=== PATIENT | male | born 1945 | race Caucasian/White ===

== ENCOUNTER 2023-12-22 12:37 | Inpatient (IN) | payer MEDICARE, MEDICAID, SELFPAY ==
[2023-12-22] VITALS (41 sets, daily range): BP systolic 70–131; BP diastolic 45–67; PULSE 65–109; RESP 12–34; TEMP 34.7–36.8; O2SAT 93–100; BMI 18.8
--- NOTE | ~2023-12-22 | CT_ITS ---
EXAMINATION: CT diagnostic chest w con DATE: 12/29/2023 15:35 INDICATION: Colon cancer TECHNIQUE: Computed tomography (CT) of the chest was performed with 100 mL Omnipaque-350 intravenous contrast. Automated exposure control and iterative reconstruction technique were employed. The dose-l ength product was 143.28 mGy-cm. COMPARISON: X-ray chest 12/23/2023; CT abdomen pelvis 12/22/2023. FINDINGS: CHEST: Thoracic aorta: No significant dilation or calcification. Lung parenchyma and airways: Biapical pleural scarring. Patchy areas of groundglass opacity in the me dial left upper lobe, right upper lobe and right middle lobe. Calcified left lower lobe granuloma. Bi basilar dependent atelectasis. Thoracic inlet, axillae and chest wall: No thyroid or soft tissue mass. No axillary lymphadenopathy. Right IJ central line terminating in the distal SVC. Mediastinum: Prominent mediastinal lymph nodes, not pathologic based on size criteria. Central pulmon dar arterial dilation as can be seen with pulmonary artery hypertension. Well-opacified pulmonary art eries, no evidence of central or segmental embolus. Small hiatal hernia. Heart and pericardium: Normal heart size. No pericardial effusion. Coronary artery calcifications: Mild. Pleura: Moderate bilateral simple pleural fluid collections. Upper abdomen: Partially visualized transverse colon mass. Hyperenhancing left upper quadrant nodule, likely splenule. Thoracic bones: No acute osseous finding in the chest. Multilevel chronic appearing mild thoracic richard tebral body compression fractures. Bone island in T10. IMPRESSION: Scattered groundglass pulmonary opacities may represent atypical infection. Moderate bilateral simple pleural effusions. No CT evidence of metastatic disease in the chest. Reviewed, dictated and finalized at location K.
--- NOTE | ~2023-12-22 | CT_ITS ---
EXAMINATION: CT abdomen pelvis w con DATE: 12/22/2023 14:08 INDICATION: Lethargy. Weakness. TECHNIQUE: Computed tomography (CT) of the abdomen and pelvis was performed with 100 mL Omnipaque 350 intravenous contrast. Automated exposure control and iterative reconstruction technique were employe d. The dose-length product was 299.88 mGy-cm. COMPARISON: None. FINDINGS: The visualized portions of the lung bases demonstrate a calcified left lung nodule, consist ent with old granulomatous disease. No pleural effusion. The heart size is normal. No pericardial eff usion. There is a small sliding hiatal hernia. There are cysts in the liver measuring up to 7 mm . Th e spleen, gallbladder, pancreas, adrenal glands, and left kidney are normal. There is a 7 mm cyst in right kidney. There is a 17.0 cm mass of the transverse colon. There are no dilated loops of bowel. T he appendix is not visualized. There is calcified atherosclerosis of the aorta and many of the other arteries. There are no pathologically enlarged lymph nodes. There is no free intraperitoneal fluid. T here is internal fixation of proximal right femur. There is moderate there is mild thoracic and lumba r spondylosis. Osteoarthritis of the hips. IMPRESSION: 1. 17.0 cm mass of the transverse colon, consistent with primary malignancy. Reviewed, dictated and finalized at location A.
--- NOTE | ~2023-12-22 | XR_ITS ---
EXAMINATION: XR hip LT 2V w AP pelvis DATE: 12/22/2023 13:55 INDICATION: Left hip pain. Weakness. Fall. TECHNIQUE: An anteroposterior view of the pelvis and 2 views of left hip were obtained. COMPARISON: None. FINDINGS: Bone alignment is normal. No acute fracture. There is internal fixation of proximal right f emur. There is mild osteoarthritis of the hips. IMPRESSION: 1. Mild osteoarthritis of the hips. Reviewed, dictated and finalized at location A.
--- NOTE | ~2023-12-22 | XR_ITS ---
EXAMINATION: XR chest 2V DATE: 12/22/2023 13:55 INDICATION: Fall. Weakness. TECHNIQUE: Frontal and lateral views of the chest were obtained on 3 radiographs. COMPARISON: None. FINDINGS: There is mild scarring at the left lung apex. No pleural effusion or pneumothorax. The hear t size is normal. There is mild chronic anterior wedging of multiple vertebral bodies. IMPRESSION: 1. Mild scarring at left lung apex. Reviewed, dictated and finalized at location A.
--- NOTE | ~2023-12-22 | XR_ITS ---
EXAMINATION: XR chest port-a-cath/central Exam Date/Time: 12/22/2023 22:05 CDT HISTORY: central line placement Comparison: Same date at 1:36 PM are. RESULT: Lines, tubes, and devices: Right IJ central line, terminating in the proximal right atrium. Lungs and pleura: Mild diffuse interstitial opacities. Cardiomediastinal silhouette: Stable. Other: No acute osseous or upper abdominal finding. IMPRESSION: Right IJ central line terminating in the proximal right atrium. If cavoatrial positioning is desired, consider 1.5 cm retraction. Mild interstitial edema Reviewed, dictated and finalized at location K. IMPRESSION: Right IJ central line terminating in the proximal right atrium. If cavoatrial p ositioning is desired, consider 1.5 cm retraction. Mild interstitial edema
--- NOTE | ~2023-12-22 | XR_ITS ---
EXAMINATION: XR chest 1V portable DATE: 01/11/2024 15:04 INDICATION: Hypoxia. Sepsis. TECHNIQUE: A single frontal view of the chest was obtained. COMPARISON: Chest single view 01/08/24, chest CT 12/29/2023 FINDINGS: There is a diffuse interstitial pattern, consistent with mild pulmonary edema. No pleural e ffusion or pneumothorax. The heart size is normal. IMPRESSION: 1. Mild pulmonary edema. Reviewed, dictated and finalized at location E. IMPRESSION: 1. Mild pulmonary edema.
--- NOTE | ~2023-12-22 | XR_ITS ---
EXAMINATION: XR chest 1V portable Exam Date/Time: 01/13/2024 19:50 CDT HISTORY: aspiration Comparison: 01/11/2024. RESULT: Lines, tubes, and devices: None. Lungs and pleura: Increasing patchy ground glass opacities in the left mid and lower lung. Stable pa tchy ground glass opacities in the bilateral upper and right lower lungs. Stable mild diffuse interst itial opacities. Cardiomediastinal silhouette: Stable. Other: No acute osseous or upper abdominal finding. IMPRESSION: Slightly increased left mid and lower lung opacities may represent slightly increased edema or interv al aspiration. Reviewed, dictated and finalized at location K. IMPRESSION: Slightly increased left mid and lower lung opacities may represent slightly inc reased edema or interval aspiration.
--- NOTE | ~2023-12-22 | CT_ITS ---
EXAMINATION: CT brain wo con DATE: 12/22/2023 14:06 INDICATION: Weakness. Lethargy. TECHNIQUE: Computed tomography (CT) of the head was performed without intravenous contrast. The mA wa s adjusted according to patient size. Iterative reconstruction technique was employed. The dose-lengt h product was 681.00 mGy-cm. COMPARISON: None FINDINGS: There is no intracranial hemorrhage, acute infarction, or abnormal intracranial mass lesion . The ventricles are normal in size. The orbits are normal. There is mild mucosal thickening in the e thmoid sinuses. The mastoid air cells are normal. IMPRESSION: 1. Normal brain. Reviewed, dictated and finalized at location A. IMPRESSION: 1. Normal brain.
--- NOTE | ~2023-12-22 | XR_ITS ---
MODIFIED ESOPHAGRAM HISTORY: Choking on thin liquids TECHNIQUE: Modified barium esophagram was performed on 01/13/2024. I administered fluoroscopy and perf ormed the exam with speech pathologist. Patient was seated for lateral fluoroscopic imaging for lesli stion of thin liquids, pudding, solids and quantified amounts, followed by thin liquids in uncontroll ed amounts. This was recorded on tape. A single fluoroscopic spot image was also recorded. The DAP fo r this procedure was 2.484 Gycm2. The amount of fluoroscopy time used during this procedure was 5.3 m inutes. FINDINGS: Oral stage: Patient is edentulous. There is reduced labial seal/attention. Pharyngeal stage: Reduced laryngeal elevation, laryngeal adduction, tongue base retraction and pharyn geal squeeze. There is vallecular residue. There is both laryngeal penetration and aspiration. Cervical/esophageal stage: Adequate function. IMPRESSION: Pharyngeal dysphagia with laryngeal penetration and aspiration. Please correlate with sp eech pathologist findings and specific feeding recommendations. Reviewed, dictated and finalized at location A. IMPRESSION: Pharyngeal dysphagia with laryngeal penetration and aspiration. Pl ease correlate with speech pathologist findings and specific feeding recommenda tions.
--- NOTE | ~2023-12-22 | XR_ITS ---
Portable chest x-ray Comparison: 01/03/2024 Clinical History: Fever Findings: Lungs are clear, without focal consolidation or pleural effusion. Possible COPD. Cardiome diastinal silhouette is stable. Bones and soft tissues are unremarkable. Impression: No acute pulmonary abnormality seen. Possible COPD. Reviewed, dictated and finalized at location . Impression: No acute pulmonary abnormality seen. Possible COPD.
--- NOTE | ~2023-12-22 | CT_ITS ---
Non-contrast Head CT History: Status post fall COMPARISON: 12/22/2023 Technique: Axial non-contrast imaging of the brain was performed. Dose reduction technique was used on this scan by utilizing automated exposure control and iterative reconstruction technique. The dose -length product (DLP) was 681.00 mGy-cm. Findings: There is no evidence of intracranial hemorrhage, mass lesion, or acute infarct. Brain par enchyma appears normal. The ventricles and subarachnoid spaces are normal in size. The calvarium ap pears normal. The visualized paranasal sinuses and mastoid air cells are clear. Impression: No significant abnormality seen. Reviewed, dictated and finalized at location . Impression: No significant abnormality seen.
--- NOTE | ~2023-12-22 | XR_ITS ---
EXAMINATION: XR chest 1V portable DATE: 01/03/2024 16:01 INDICATION: Leukocytosis. TECHNIQUE: A single frontal view of the chest was obtained. COMPARISON: Chest single view 12/23/2023, chest CT 12/29/2023 FINDINGS: There is mild scarring at the lung apices. No pleural effusion or pneumothorax. Skinfolds o verlie the chest. The heart size is normal. Calcified left hilar lymph nodes are consistent with old granulomatous disease. IMPRESSION: 1. Stable mild scarring at the lung apices. Reviewed, dictated and finalized at location E.
--- NOTE | ~2023-12-22 | XR_ITS ---
Portable chest x-ray Comparison: 12/22/2023 Clinical History: Line placement Findings: Right IJ line in satisfactory position. Lungs remain clear. Cardiomediastinal silhouette is stable. Bones and soft tissues are unremarkable. Impression: Support line in place, as above. Clear lungs. Reviewed, dictated and finalized at location . Impression: Support line in place, as above. Clear lungs.
--- NOTE | 2023-12-22 12:44 | ECG_ITS ---
Measurements Intervals Alpha Rate: 103 P: 82 NC: 131 QRS: 60 QRSD: 89 T: 81 QT: 357 QTc: 468 Interpretive Statements SINUS TACHYCARDIA ABNORMAL RHYTHM ECG NO PREVIOUS ECG AVAILABLE FOR COMPARISON Electronically Signed On 12-22-2023 13:20:23 CDT by He Marvin M.D.
[2023-12-22 13:10] LABS: Basophils Absolute Auto 0.1 K/mm3 (0.0-0.1); Basophils Percent Auto 0.4 % (0.2-1.2); Eosinophils Percent Auto 0.1 % (0-4.4); Hematocrit 28.4 % (42.0-52.0); Hemoglobin 8.7 g/dL (14.0-18.0); Immature Granulocyte Absolute 0.21 K/mm3 (0.00-0.031); Immature Granulocyte Percent A 1.6 % (0-0.5); Lymphocytes Absolute Auto 0.46 K/mm3 (0.9-3.2); Lymphocytes Percent Auto 3.5 % (18.3-44.2); Mean Corpuscular HGB Conc 30.6 g/dl (32-36); Mean Corpuscular Hemoglobin 25.4 pg (26-34); Mean Corpuscular Volume 82.8 fl (80-100); Mean Platelet Volume 8.9 fl (7.4-10.4); Monocytes Absolute Auto 1.1 K/mm3 (0.1-0.6); Monocytes Percent Auto 8.5 % (2.6-8.5); Neutrophils Absolute Auto 11.3 K/mm3 (1.3-6.7); Neutrophils Percent Auto 85.9 % (45.5-73.1); Platelet Count Result 261 k/mm3 (150-375); Red Blood Count 3.43 M/mm3 (4.6-6.20); Red Cell Distribution Width 16.8 % (11.5-14.5); White Blood Count 13.1 K/mm3 (4.5-10.0)
[2023-12-22 13:21] LABS: Alanine Aminotransferase 14 U/L (6-50); Albumin Level 2.5 g/dL (3.5-5.1); Alkaline Phosphatase 111 U/L (38-126); Anion Gap 8 mmol/L (4-12); Aspartate Amino Transferase 24 U/L (17-59); Bilirubin,Total 0.9 mg/dL (0.2-1.3); Blood Urea Nitrogen 15 mg/dL (9-20); Calcium 8.6 mg/dL (8.4-10.2); Carbon Dioxide 27 mmol/L (22-30); Chloride 96 mmol/L (98-107); Estimated Glomerular Filt Rate > 60; Glucose 178 mg/dL (65-110); Potassium 3.6 mmol/L (3.4-5.0); Sodium 131 mmol/L (137-145)
--- NOTE | 2023-12-22 13:22 | ED.FALL ---
HPI - Fall General Chief Complaint: Fall Stated Complaint: FALL Time Seen by Provider: 12/22/23 13:20 Source: patient Limitations: other (speech difficult to understand) History of Present Illness HPI Narrative: Patient presents as ground level fall from [facility]. He was lethargic and weak. Per EMS he had a heart rate in the 130s and a systolic blood pressure of 70 with a blood glucose of 187 mg/dL. patient denies losing consciousness and tries to explain the details of the fall although he is edentulous making it somewhat difficult to fully understand his description of the injury. He states he landed on his right side/ hip but is complaining of left hip pain as well as pain in his lower left quadrant abdomen. He denies any vomiting, nausea, fevers, or bloody bowel movements. medications per nursing documentation as follows: Quetiapine, citalopram, doxazosin, pantoprazole, gabapentin, rosuvastatin, trazodone, hydroxyzine, PCP per facility documentation: Dr Helio Cheng Related Data Home Medications Medication Instructions Recorded Confirmed citalopram 10 mg tablet 10 mg PO DAILY 12/22/23 12/22/23 doxazosin 4 mg tablet 4 mg PO DAILY 12/22/23 12/22/23 gabapentin 300 mg tablet,extended 300 mg PO QPM 12/22/23 12/22/23 release 24 hr hydroxyzine HCl 50 mg tablet 50 mg PO QID PRN Itching 12/22/23 12/22/23 pantoprazole 40 mg tablet,delayed 40 mg PO QAM 12/22/23 12/22/23 release quetiapine 25 mg tablet 25 mg PO QAM 12/22/23 12/22/23 quetiapine 400 mg tablet,extended 400 mg PO HS 12/22/23 12/22/23 release 24 hr rosuvastatin 20 mg tablet 20 mg PO DAILY 12/22/23 12/22/23 trazodone 100 mg tablet 100 mg PO HS PRN Insomnia 12/22/23 12/22/23 Allergies Allergy/AdvReac Type Severity Reaction Status Date / Time Penicillins Allergy Rash Verified 12/22/23 13:32 [facility] Past Medical History Medical History (Updated 12/23/23 @ 02:12 by Virgie Flores MD) Alcohol abuse Arthritis COPD (chronic obstructive pulmonary disease) Major depressive disorder Tobacco abuse Surgical History Surgical History (Updated 12/23/23 @ 00:47 by Zainab Greenberg DO) No history of previous surgery Family History Family History (Updated 12/23/23 @ 00:47 by Zainab Greenberg DO) Mother Cancer Social History Social History (Updated 12/23/23 @ 00:50 by Zainab Greenberg DO) Social History: Patient lives in his own home and is never been . He does not have any pets. He reports that he has not had any contact with his extended family members. He went drinks to excess but will not give me a specific amount that he drinks. He does new enjoys south flavored vodka. He has smoked a pack of cigarettes per day since he was 30 years old. The patient is evasive when discussing illicit substances but urine drug screen was negative in the ER. Code status: DNR/DNI per patient request He does not have a surrogate decision maker in does not have a family member that he is in contact that he would wish to a point as a decision maker. He states to ask the people at [facility] or the staff at the hospital what they would want done. Smoking packs per day: 1 Smoking cigarettes per day: 20.0 Years smoked: 60 Smoking pack-years: 60.00 Smoking status: Heavy tobacco smoker Tobacco type: cigarettes Alcohol intake: current Substance use: never Substance use type: does not use Do You Feel Safe in your Home?: Yes Lack of Transportation: No Lack of Food: Never True Current Housing: I Do Not Have Housing Concerned About Future Housing: No Difficulty Paying Gas/Electric Bills: No Difficulty Paying for Meds: No Currently Unemployed: No Education: Grade School Difficulty w/ Childcare or Family Care: No Additional living arrangements comments: Resides at [place] since 11/21/2011 Spiritual care concerns: No Exam Narrative: GENERAL: Ill-appearing, in no acute distress HEAD: [place]
[2023-12-22 13:23] LABS: Lactic Acid Reflex 5.3 mmol/L (0.7-2.0)
[2023-12-22] MEDS: SODIUM CHLORIDE 0.9% IV 1,000 ML 999 ML IV CONT ×3 (14:13→16:17)
[2023-12-22] MEDS: ACETAMINOPHEN 500 MG TABLET 1000 MG PO (14:13)
[2023-12-22 14:55] LABS: Add Urine Microscopic? YES; Appearance Urine Clear (Clear); Bacteria Urine None Seen /hpf; Bilirubin Urine Negative (Negative); Blood Urine Negative (Negative); Color Urine Dark Yellow (Yellow); Glucose Urine UA Negative (Negative); Ketones Urine Negative (Negative); Leukocyte Esterase Ur Trace LEU/UL (Negative); Nitrate Urine Negative (Negative); Non Pathogenic Casts 0-2; Protein Urine 1+ mg/dL (Negative); RBC Urine 0-2 /hpf (0-2); Specific Grav Ur 1.011 (1.001-1.035); Squamous Epithelial Cell Urine None Seen /hpf (Few); WBC Urine 0-5 /hpf (0-3); pH Urine 5.5 (5.0-9.0)
[2023-12-22 15:10] LABS: Amphetamine Screen Urine Negative (Negative); Barbiturate Screen Urine Negative (Negative); Benzodiazepines Screen Urine Negative (Negative); Cannabinoid Screen Urine Negative (Negative); Cocaine Screen Urine Negative (Negative); Methadone Screen Urine Negative (Negative); Opiate Screen Urine Negative (Negative); Phencyclidine Screen Urine Negative (Negative)
[2023-12-22 16:06] LABS: Reflex Lactic Acid Yes or No Add Lactic
[2023-12-22 16:12] LABS: Lactic Acid Reflex 1.4 mmol/L (0.7-2.0)
[2023-12-22] MEDS: LACTATED RINGERS 1,000 ML 100 ML IV CONT (19:19)
--- NOTE | 2023-12-22 19:33 | PC.NURSE ---
Patient's temperature rectally was 94.4 F. Juan hugger and blankets applied to patient and fluids warmed via ranger.
--- NOTE | 2023-12-22 20:25 | PC.NURSE ---
Addendum entered by Jason Hayes RN 12/22/23 21:01: Per [facility] patient has no family that can make legal/medical decisions. Original Note: Patient presents A&Ox2-3. Making statements such as it's August 2023 and when asked why he is here he replies I am marissa or I'm tired . Notified ED CRN and EDP Dr. Flores. Patient has no contacts on our files or files/paperwork patient came in with. Called [employer] for information regarding family and next of kin. [employer] advised they will reach out to their supervisors and they will call us back.
[2023-12-22] MEDS: CEFEPIME 1 GM/NS 50 ML 1 GM/50 ML BAG IVPB (20:42)
[2023-12-22] MEDS: NOREPINEPHRINE 8 MG/D5W 250 ML 8 MG/250 ML BAG 9.38 MG IV CONT (20:56)
[2023-12-22 21:42] LABS: MRSA (PCR) NOT DETECTED (NOT DETECTE)
--- NOTE | 2023-12-22 22:11 | PC.NURSE ---
EDP Dr. Flores reviewed bedside X-ray and verbalized that it was okay to use the central line
[2023-12-22] MEDS: VANCOMYCIN 1,250 MG/NS 250 ML 1,250 MG/250 ML BAG 166.67 MG IVPB (22:14)
--- NOTE | 2023-12-22 23:00 | ADMGEN ---
This patient, Mario Gomez, was admitted to Intensive Care Unit-5. Patient/family oriented to hospital policies and general routines including ID bracelet, bed and alarms, visiting hours, pain management, procedures, bathroom and other care routines, personal items, smoking policy, room service/diet, and visiting hours. Information on how to activate the Rapid Response Team has been discussed. Patient/Family are encouraged to report perceived risks to care and to ask questions if they do not understand what they are told or what they should do.
--- NOTE | 2023-12-22 23:40 | PM.IMHP ---
H&P: HPI History of Present Illness Date/Time: 12/22/23 23:40 Chief Complaint: Fall Narrative: 78-year-old male with a past medical history of BPH, GERD, COPD, tobacco abuse, alcohol abuse, who was brought in from home via EMS after being found on the ground. [facility] Past Medical History Medical History (Updated 12/23/23 @ 01:00 by Zainab Greenberg DO) Alcohol abuse Arthritis COPD (chronic obstructive pulmonary disease) Major depressive disorder Tobacco abuse Surgical History Surgical History (Updated 12/23/23 @ 00:47 by Zainab Greenberg DO) No history of previous surgery Family History Family History (Updated 12/23/23 @ 00:47 by Zainab Greenberg DO) Mother Cancer Social History Social History (Updated 12/23/23 @ 00:50 by Zainab Greenberg DO) Social History: Patient lives in his own home and is never been . He does not have any pets. He reports that he has not had any contact with his extended family members. He went drinks to excess but will not give me a specific amount that he drinks. He does new enjoys south flavored vodka. He has smoked a pack of cigarettes per day since he was 30 years old. The patient is evasive when discussing illicit substances but urine drug screen was negative in the ER. Code status: DNR/DNI per patient request He does not have a surrogate decision maker in does not have a family member that he is in contact that he would wish to a point as a decision maker. He states to ask the people at [facility] or the staff at the hospital what they would want done. Smoking packs per day: 1 Smoking cigarettes per day: 20.0 Years smoked: 60 Smoking pack-years: 60.00 Smoking status: Heavy tobacco smoker Tobacco type: cigarettes Alcohol intake: current Substance use: never Substance use type: does not use Do You Feel Safe in your Home?: Yes Lack of Transportation: No Lack of Food: Never True Current Housing: I Do Not Have Housing Concerned About Future Housing: No Difficulty Paying Gas/Electric Bills: No Difficulty Paying for Meds: No Currently Unemployed: No Education: Grade School Difficulty w/ Childcare or Family Care: No Additional living arrangements comments: Resides at [place] since 11/21/2011 Spiritual care concerns: No Meds Home Medications and Allergies Home Medications Medication Instructions Recorded Confirmed Type citalopram 10 mg tablet 10 mg PO DAILY 12/22/23 12/22/23 History doxazosin 4 mg tablet 4 mg PO DAILY 12/22/23 12/22/23 History gabapentin 300 mg tablet,extended 300 mg PO QPM 12/22/23 12/22/23 History release 24 hr hydroxyzine HCl 50 mg tablet 50 mg PO QID PRN Itching 12/22/23 12/22/23 History pantoprazole 40 mg tablet,delayed 40 mg PO QAM 12/22/23 12/22/23 History release quetiapine 25 mg tablet 25 mg PO QAM 12/22/23 12/22/23 History quetiapine 400 mg tablet,extended 400 mg PO HS 12/22/23 12/22/23 History release 24 hr rosuvastatin 20 mg tablet 20 mg PO DAILY 12/22/23 12/22/23 History trazodone 100 mg tablet 100 mg PO HS PRN Insomnia 12/22/23 12/22/23 History Allergies Allergy/AdvReac Type Severity Reaction Status Date / Time Penicillins Allergy Rash Verified 12/22/23 13:32 Vital Signs Vital Signs - 24 hr 12/22/23 12:38 12/22/23 12:55 12/22/23 15:19 Temperature 98.3 F Pulse Rate 109 H 102 H 76 Respiratory Rate 34 H 18 14 Blood Pressure 70/50 L 108/67 75/49 L Pulse Oximetry 100 97 98 12/22/23 12:46 12/22/23 12:55 12/22/23 13:09 Temperature Pulse Rate 99 102 H 100 Respiratory Rate 27 H 12 19 Blood Pressure 108/67 Pulse Oximetry 97 12/22/23 13:15 12/22/23 13:16 12/22/23 13:30 Temperature Pulse Rate 99 102 H 95 Respiratory Rate 17 25 H 23 H Blood Pressure 72/45 L 83/54 L Pulse Oximetry 12/22/23 13:31 12/22/23 15:48 12/22/23 16:00 Temperature Pulse Rate 96 76 76 Respiratory Rate 26 H 17 16 Blood Pressure 75/52 L Pulse Oximetry
[2023-12-23] VITALS (28 sets, daily range): BP systolic 85–137; BP diastolic 45–73; PULSE 56–108; RESP 14–26; TEMP 36.3–37.4; O2SAT 94–99; BMI 18.9
--- NOTE | 2023-12-23 | ECHO_ITS ---
Patient Info Name: Mario Gomez Age: 78 years : 1945 Gender: Male Ht: 69 in Wt: 128 lbs BSA: 1.67 m2 HR: 73 bpm BP: 124 / 62 mmHg Heart Rhythm: Sinus Rhythm Technical Quality: Fair Exam Date: 12/23/2023 11:49 AM Exam Location: Echo Lab Patient Status: Inpatient Admit Date: 12/22/2023 Staff Ordering Physician: Lopez Ramos MD [employer] Executive: Ruth Vela RDCS Attending Provider: Zainab Greenberg DO Exam Type: CA echo dop color flow w con Study Info Indications - Shock Complete two-dimensional, color flow and Doppler transthoracic echocardiogram is performed with contrast to opacify the left ventricle and to improve the deliniation of the left ventricle endocardial borders. Contrast/Agitated Saline Contrast/Ag. Saline: Definity Amount: 2.00 ml Administered By: Ruth Vela RDCS Existing IV Access: Yes IV Access Condition: patent with no signs of infiltration Summary 1. Left ventricular chamber dimension is normal. 2. Left ventricular systolic function is normal, estimated at 65-70%. 3. Right ventricular systolic function is normal. 4. No significant valvular disease. 5. Normal inferior vena cava with >50% collapse upon inspiration consistent with normal right atrial pressure, 3 mmHg. Left Ventricle Left ventricular chamber dimension is normal. Left ventricular systolic function is normal, estimated at 65-70%. There is no increased left ventricular wall thickness. Right Ventricle Right ventricular chamber dimension is normal. Right ventricular systolic function is normal. Left Atria Left atrial chamber dimension is normal. Right Atria Right atrial chamber dimension is normal. Atrial Septum Intact interatrial septum visualized by color flow imaging. Aortic Valve The aortic valve is probable trileaflet. There is no aortic valve stenosis. There is no aortic valve regurgitation. Pulmonic Valve The pulmonic valve is not well visualized. There is trace pulmonic regurgitation. Mitral Valve There is trace mitral valve regurgitation. Tricuspid Valve There is trace tricuspid valve regurgitation. Pericardium/Pleural There is no pericardial effusion. Inferior Vena Cava Normal inferior vena cava with >50% collapse upon inspiration consistent with normal right atrial pressure, 3 mmHg. Aorta The aortic root size at the sinus of Valsalva is normal. Left Ventricular Outflow Tract Name Value Normal LVOT 2D LVOT Diameter 2.03 cm LVOT Doppler LVOT Peak Gradient 3 mmHg LVOT Mean Gradient 1 mmHg LVOT VTI 15.07 cm LVOT VTI/AV VTI Ratio 0.71 LVOT Stroke Volume 48.70 ml LVOT CO 3.66 l/min LVOT CI 2.19 L/min/m2 Pulmonic Valve Name Value Normal RVOT Doppler RVOT Peak Gradient
--- NOTE | 2023-12-23 03:28 | PC.NURSE ---
Pt maintaining temperature with victor hugo hugger off. Provider notified. Victor Hugo hugger removed from room.
[2023-12-23 05:04] LABS: Basophils Absolute Auto 0.1 K/mm3 (0.0-0.1); Basophils Percent Auto 0.4 % (0.2-1.2); Eosinophils Percent Auto 0.2 % (0-4.4); Hematocrit 26.7 % (42.0-52.0); Hemoglobin 8.2 g/dL (14.0-18.0); Immature Granulocyte Absolute 0.12 K/mm3 (0.00-0.031); Lymphocytes Absolute Auto 0.75 K/mm3 (0.9-3.2); Lymphocytes Percent Auto 5.9 % (18.3-44.2); Mean Corpuscular HGB Conc 30.7 g/dl (32-36); Mean Corpuscular Hemoglobin 25.2 pg (26-34); Mean Corpuscular Volume 81.9 fl (80-100); Mean Platelet Volume 8.4 fl (7.4-10.4); Monocytes Percent Auto 7.7 % (2.6-8.5); Neutrophils Absolute Auto 10.7 K/mm3 (1.3-6.7); Neutrophils Percent Auto 84.8 % (45.5-73.1); Platelet Count Result 228 k/mm3 (150-375); Red Blood Count 3.26 M/mm3 (4.6-6.20); Red Cell Distribution Width 16.9 % (11.5-14.5); White Blood Count 12.6 K/mm3 (4.5-10.0)
[2023-12-23 05:14] LABS: INR 1.4; Prothrombin Time 17.7 Seconds (11.1-14.7)
[2023-12-23 05:16] LABS: Partial Thromboplastin Time 31.8 Seconds (22.3-36.8)
[2023-12-23 05:26] LABS: Alanine Aminotransferase 10 U/L (6-50); Albumin Level 2.1 g/dL (3.5-5.1); Alkaline Phosphatase 100 U/L (38-126); Anion Gap 3 mmol/L (4-12); Aspartate Amino Transferase 25 U/L (17-59); Bilirubin,Total 0.7 mg/dL (0.2-1.3); Blood Urea Nitrogen 15 mg/dL (9-20); Calcium 7.9 mg/dL (8.4-10.2); Carbon Dioxide 25 mmol/L (22-30); Chloride 105 mmol/L (98-107); Estimated CRCL calculation 56 ml/min; Estimated Glomerular Filt Rate > 60; Glucose 131 mg/dL (65-110); Iron 19 ug/dL (49-181); Potassium 3.1 mmol/L (3.4-5.0); Sodium 133 mmol/L (137-145)
[2023-12-23 05:36] LABS: Percent Iron Saturation 13 % (20-50)
[2023-12-23 05:59] LABS: Thyroid Stimulating Hormone Reflex 0.924 uIU/mL (0.465-4.68)
[2023-12-23 06:18] LABS: Glucose Point of Care 131 mg/dl (65-105)
[2023-12-23] MEDS: HEPARIN SODIUM 5,000 UNITS/ML VIAL 5000 UNITS SUB-Q ×3 (06:27→20:18)
[2023-12-23] MEDS: THIAMINE HCL 200 MG/2 ML VIAL 100 MG IV PUSH (07:59)
--- NOTE | 2023-12-23 08:44 | WPDCNINT ---
Assessment and Plan Assessment and plan (1) Septic shock: Code(s): A41.9 - Sepsis, unspecified organism; R65.21 - Severe sepsis with septic shock Status: Acute Assessment and Plan: Patient with shock which did not improve despite aggressive IV fluids resuscitation. Source not clear but could be bacteremia secondary to colon mass. UA negative and chest x-ray negative for any signs of infection Blood cultures have been sent Continue empiric vancomycin and cefepime Continue IV fluids but at a lower rate since patient has received significant amount IV fluids already Continue Levophed 25% albumin and stress dose hydrocortisone Maintain map with Levophed titration (2) Tobacco abuse: Code(s): Z72.0 - Tobacco use Status: Acute Assessment and Plan: Patient was counseled and encouraged to quit smoking (3) Colonic mass: Code(s): K63.89 - Other specified diseases of intestine Status: Acute Assessment and Plan: Patient has a large 17 cm colon mass but no obstruction. Consult GI and General surgery. Clear liquid diet (4) COPD (chronic obstructive pulmonary disease): Code(s): J44.9 - Chronic obstructive pulmonary disease, unspecified Status: Acute Assessment and Plan: Bronchodilators Plan DVT prophylaxis -subcu heparin Stress ulcer prophylaxis -Protonix Nutrition -clear liquid diet Code Status -patient wishes to be DNR and DNI Total Critical Care Time - 35 minutes Due to a high probability of clinically significant, life threatening deterioration, the patient required my highest level of preparedness to intervene emergently and I personally spent this critical care time directly and personally managing the patient. This critical care time included obtaining a history; examining the patient; pulse oximetry; ordering and review of studies; arranging urgent treatment with development of a management plan; evaluation of patient's response to treatment; frequent reassessment; and discussions with other providers. It was exclusive of separately billable procedures and treating other patients and teaching time. Please see Assessment and Plan section and the rest of the note for further information on patient assessment and treatment Sales Development Specialist Consult Note Consult date: 12/23/23 Reason for consult: Septic shock HPI: Mario Gomez is a 78 year old male with past medical history of psychiatric illness who is a resident of psychiatric facility, BPH, GERD, COPD, current tobacco abuse and distant history of alcohol abuse who was brought in from [facility] after being found down on the ground.? The patient reported at the time of presentation that he got up from bed and tripped over the bike in his room and remained on the floor.? He does not think he hit his head or lost consciousness.? Patient was only partially oriented at that time. In the ER patient was found to be hypotensive and despite more than 5 L of IV fluid he remained hypertensive. Right IJ central venous catheter was placed which was later reposition. Patient was started on Levophed. He was admitted to ICU. Also during the investigation patient was found to be having large transverse colon mass S CT scan. This morning when I saw the patient he was sleeping and had to be woken up by stimulation. He does not have teeth and is not wearing dentures and has a hard to understand speech and voice. He does state that he feels good much better than yesterday and denies any specific complaints. He denies any abdominal pain at this time. No nausea vomiting would like to drink water. He states that he did not had any abdominal pain nausea vomiting prior to coming to the hospital either. Patient denies fever, chest pain, shortness of breath, cough, nausea vomiting, abdominal pain,, diarrhea, headache or constipation. All other systems were reviewed and were negative Review of Systems Review of Systems: All systems rev
[2023-12-23] MEDS: KCL 20 MEQ/0.45% NS 1,000 ML 50 ML IV CONT (09:11)
[2023-12-23] MEDS: KCL 40 MEQ/WATER 100 ML 100 ML 25 ML IVPB (09:12)
[2023-12-23] MEDS: CEFEPIME 1 GM/NS 50 ML 1 GM/50 ML BAG IVPB ×2 (09:12→20:18)
[2023-12-23] MEDS: ALBUMIN HUMAN 25% 25 GM/100 ML 100 ML IVPB ×3 (09:13→18:17)
[2023-12-23] MEDS: PANTOPRAZOLE SODIUM IV 40 MG VIAL IV PUSH (09:18)
[2023-12-23] MEDS: POTASSIUM CHLORIDE 20 MEQ PACKET (FOR LIQUID) 40 MEQ FEED TUBE (09:28)
[2023-12-23 10:12] LABS: Folic Acid 2.8 ng/mL (2.76->20)
--- NOTE | 2023-12-23 10:38 | PC.NURSE ---
Dr Ramos wrote and order to stop Precidex for weaning trial, see titration section when med was stopped.
[2023-12-23] MEDS: PERFLUTREN LIPID MICROSPHERES 1.5 ML VIAL DILUTED TO 10 ML TOTAL VOLUME IV PUSH (11:15)
--- NOTE | 2023-12-23 11:33 | PM.CNGS ---
Assessment and Plan Assessment and plan (1) Colonic mass: Code(s): K63.89 - Other specified diseases of intestine Status: Acute Assessment and Plan: I have reviewed the CT and discussed the findings with the patient. He has a very large colonic mass but this does not appear to be causing bowel obstruction. This could be a potential source of sepsis and septic shock if he were found to be bacteremic. He is not a good surgical candidate at this time as he is still requiring vasopressors. Will continue to follow daily. Patient does not have any family to discuss this with and he is a resident of a long-term [facility] facility. His long-term prognosis and quality of life may not be very much improved with surgical intervention. Will have to have further discussion with patient has he improves from his current condition. (2) Tobacco abuse: Code(s): Z72.0 - Tobacco use Status: Acute (3) Chronic alcohol abuse: Code(s): F10.10 - Alcohol abuse, uncomplicated Status: Acute (4) Shock: Code(s): R57.9 - Shock, unspecified Status: Acute Assessment and Plan: Currently on Levophed drip. Patient is awake and responds appropriately. (5) COPD (chronic obstructive pulmonary disease): Code(s): J44.9 - Chronic obstructive pulmonary disease, unspecified Status: Acute (6) Normocytic anemia: Code(s): D64.9 - Anemia, unspecified Status: Acute (7) Malnutrition related to chronic disease: Code(s): E46 - Unspecified protein-calorie malnutrition Status: Acute Assessment and Plan: Albumin of 2.5 on admission. Patient will be high risk for healing complications including anastomotic leak. History of Present Illness Consult details Consult date: 12/23/23 Reason for consult: other (colon mass) Requesting physician: Lopez Ramos MD Narrative: This is a 78-year-old man who I am asked to see for a large colon mass. He was brought to the emergency department yesterday by EMS from [facility] after sustaining a fall. He was experiencing weakness and lethargy and reportedly his heart rate was in the 130s and blood pressure was around 70 systolic. In the emergency department he was showing signs of shock and was fluid resuscitated and started on vasopressors. He was then admitted to the intensive care unit for further treatment. The patient had a CT of his abdomen and pelvis performed which showed evidence of a 17 cm mass of the transverse colon. The patient states he does get some intermittent abdominal pains and has been having problems with smaller amounts of stool. He also states that he has been losing weight over the past several weeks. He denies any blood in his stool. He denies any nausea or vomiting. The patient states he has never had a colonoscopy before. Review of Systems Review of Systems: All systems reviewed & are unremarkable except as noted in HPI and below Constitutional: Constitutional: Denies chills and Denies fever(s) Eyes: Eyes: Denies change in vision ENT: Denies hearing loss, Denies neck pain and Denies sore throat Cardiovascular: Cardiovascular: Denies chest pain and Denies dyspnea Respiratory: Respiratory: Denies cough, Denies dyspnea and Denies wheezing Gastrointestinal: Gastrointestinal: Reports as per HPI Genitourinary: Genitourinary: Denies hematuria and Denies dysuria Musculoskeletal: Musculoskeletal: Denies arthralgias, Denies joint swelling and Denies neck pain Allergic/Immunologic: Allergic/Immunologic: Denies wheezing [facility] Past Medical History Medical History (Updated 12/23/23 @ 11:43 by Onur Sher DO) Alcohol abuse Arthritis COPD (chronic obstructive pulmonary disease) Major depressive disorder Tobacco abuse Surgical History Surgical History No history of previous surgery Family History Family History (Revi
[2023-12-23 12:04] LABS: Glucose Point of Care 149 mg/dl (65-105)
--- NOTE | 2023-12-23 13:01 | IVDEFINITY ---
Prior to administration of IV Definity the patient was educated on the risks and benefits of the imaging enhancing agent including potential adverse side effects. The patient verbalized understanding. Allergies were verified. No exclusion criteria were identified and at least one of the following inclusion criteria were met: 1) physician request, 2) patient technically difficult to image (per the [place] [employer] of Echocardiography guidelines of two or more segments not discernable within the apical view), or 3) questionable left ventricular function. ?
[2023-12-23] MEDS: HYDROCORTISONE SODIUM SUCCINATE 100 MG/2 ML VIAL IV PUSH ×2 (14:47→20:19)
--- NOTE | 2023-12-23 14:51 | WPDGICN ---
Assessment and Plan Assessment and plan (1) Colonic mass: Code(s): K63.89 - Other specified diseases of intestine Status: Acute Assessment and Plan: we can do colonoscopy probably in 1-2 days, he is still on pressors never had colonoscopy surgery on board (2) Septic shock: Code(s): A41.9 - Sepsis, unspecified organism; R65.21 - Severe sepsis with septic shock Status: Acute Assessment and Plan: still on iv levophed, by lamp developer (3) Fall: Qualifiers: Encounter type: initial encounter Qualified Code(s): W19.XXXA - Unspecified fall, initial encounter Code(s): W19.XXXA - Unspecified fall, initial encounter Status: Acute (4) COPD (chronic obstructive pulmonary disease): Code(s): J44.9 - Chronic obstructive pulmonary disease, unspecified Status: Acute (5) Malnutrition related to chronic disease: Code(s): E46 - Unspecified protein-calorie malnutrition Status: Acute Assessment and Plan: had weight loss GI Consult Note Consult date/time: 12/23/23 14:51 Reason for consult: colon mass HPI: Mario Gomez is a 78 year old male with past medical history of psychiatric illness who is a resident of psychiatric facility, BPH, GERD, COPD, current tobacco abuse and distant history of alcohol abuse who was brought in from [facility] after being found down on the ground.? In the ER he was found to be hypotensive despite more than 5 L of IV fluid then had Right IJ central venous catheter placed and started on levophed, admitted to ICU. CT scan showed large transverse colon mass, never had colonoscopy, he is comfortable now. Review of Systems Constitutional: Constitutional: Reports lethargy Eyes: Eyes: Denies blurry vision ENT: Reports Normal hearing present Cardiovascular: Cardiovascular: Denies chest pain Respiratory: Respiratory: Denies chest congestion Gastrointestinal: Gastrointestinal: Denies vomiting Genitourinary: Genitourinary: Denies urinary frequency Musculoskeletal: Musculoskeletal: Denies neck pain Integumentary/Breasts: Skin/Breast: Denies rash Neurologic: Comments: h/o fall Psychiatric: Psychiatric: Reports anxiety PMFSH Past Medical History Medical History Alcohol abuse Arthritis COPD (chronic obstructive pulmonary disease) Major depressive disorder Tobacco abuse Surgical History Surgical History No history of previous surgery Family History Family History Mother Cancer Social History Social History Social History: Patient lives in his own home and is never been . He does not have any pets. He reports that he has not had any contact with his extended family members. He went drinks to excess but will not give me a specific amount that he drinks. He does new enjoys south flavored vodka. He has smoked a pack of cigarettes per day since he was 30 years old. The patient is evasive when discussing illicit substances but urine drug screen was negative in the ER. Code status: DNR/DNI per patient request He does not have a surrogate decision maker in does not have a family member that he is in contact that he would wish to a point as a decision maker. He states to ask the people at [facility] or the staff at the hospital what they would want done. Smoking packs per day: 1 Smoking cigarettes per day: 20.0 Years smoked: 60 Smoking pack-years: 60.00 Smoking status: Heavy tobacco smoker Tobacco type: cigarettes Alcohol intake: current Substance use: never Substance use type: does not use Do You Feel Safe in your Home?: Yes Lack of Transportation: No Lack of Food: Never True Current Housing: I Do Not Have Housing Concerned About Future Ho
[2023-12-23] MEDS: NOREPINEPHRINE 8 MG/D5W 250 ML 8 MG/250 ML BAG 3.75 MG IV CONT (20:17)
[2023-12-23] MEDS: VANCOMYCIN 1,000 MG/NS 250 ML 1,000 MG/250 ML BAG 250 MG IVPB (20:38)
[2023-12-24] VITALS (15 sets, daily range): BP systolic 99–134; BP diastolic 58–77; PULSE 55–80; RESP 13–22; TEMP 35.6–36.3; O2SAT 97–100
[2023-12-24 00:11] LABS: Glucose Point of Care 183 mg/dl (65-105)
[2023-12-24] MEDS: ALBUMIN HUMAN 25% 25 GM/100 ML 100 ML IVPB ×4 (00:13→17:05)
[2023-12-24] MEDS: HEPARIN SODIUM 5,000 UNITS/ML VIAL 5000 UNITS SUB-Q ×3 (05:18→21:03)
[2023-12-24] MEDS: HYDROCORTISONE SODIUM SUCCINATE 100 MG/2 ML VIAL IV PUSH (05:18)
[2023-12-24 05:30] LABS: Hematocrit 24.9 % (42.0-52.0); Hemoglobin 7.7 g/dL (14.0-18.0); Mean Corpuscular HGB Conc 30.9 g/dl (32-36); Mean Corpuscular Hemoglobin 25.5 pg (26-34); Mean Corpuscular Volume 82.5 fl (80-100); Mean Platelet Volume 9.2 fl (7.4-10.4); Platelet Count Result 202 k/mm3 (150-375); Red Blood Count 3.02 M/mm3 (4.6-6.20); Red Cell Distribution Width 16.8 % (11.5-14.5); White Blood Count 8.9 K/mm3 (4.5-10.0)
[2023-12-24 05:46] LABS: Alanine Aminotransferase 9 U/L (6-50); Alkaline Phosphatase 85 U/L (38-126); Anion Gap 2 mmol/L (4-12); Aspartate Amino Transferase 21 U/L (17-59); Bilirubin,Total 0.8 mg/dL (0.2-1.3); Blood Urea Nitrogen 9 mg/dL (9-20); Calcium 8.5 mg/dL (8.4-10.2); Carbon Dioxide 28 mmol/L (22-30); Chloride 101 mmol/L (98-107); Estimated CRCL calculation 86 ml/min; Estimated Glomerular Filt Rate > 60; Glucose 147 mg/dL (65-110); Phosphorus 2.8 mg/dL (2.5-4.5); Potassium 3.3 mmol/L (3.4-5.0); Sodium 131 mmol/L (137-145)
--- NOTE | 2023-12-24 08:33 | WPDINTPN ---
Progress Note: A&P Assessment and Plan (1) Septic shock: Code(s): A41.9 - Sepsis, unspecified organism; R65.21 - Severe sepsis with septic shock Status: Acute Assessment and Plan: Patient with shock which did not improve despite aggressive IV fluids resuscitation. Source not clear but could be bacteremia secondary to colon mass. UA negative and chest x-ray negative for any signs of infection Blood cultures have been sent Continue empiric vancomycin and cefepime Continue IV fluids but decrease rate further Levophed weaned off 25% albumin will be continue through today and DC stress dose hydrocortisone (2) Tobacco abuse: Code(s): Z72.0 - Tobacco use Status: Acute Assessment and Plan: Patient was counseled and encouraged to quit smoking (3) Colonic mass: Code(s): K63.89 - Other specified diseases of intestine Status: Acute Assessment and Plan: Patient has a large 17 cm colon mass but no obstruction. GI and General surgery consult. Clear liquid diet (4) COPD (chronic obstructive pulmonary disease): Code(s): J44.9 - Chronic obstructive pulmonary disease, unspecified Status: Acute Assessment and Plan: Bronchodilators (5) Electrolyte abnormality: Code(s): E87.8 - Other disorders of electrolyte and fluid balance, not elsewhere classified Status: Acute Assessment and Plan: Potassium replacement ordered Plan DVT prophylaxis -subcu heparin Stress ulcer prophylaxis -Protonix Nutrition -clear liquid diet Code Status -patient wishes to be DNR and DNI Incentive spirometry, up in chair, PT OT consult Transfer out of ICU today Subjective Date/time seen: 12/24/23 Overnight events reviewed. Afebrile On room air. Levophed weaned off Good urine output Tolerating clear liquid p.o. diet Other Vitals acceptable Denies any complaints this morning and states he would like his food. Patient denies fever, chest pain, shortness of breath, cough, nausea vomiting, abdominal pain,, diarrhea, headache or constipation. All other systems were reviewed and were negative Review of Systems Review of Systems: All systems reviewed & are unremarkable except as noted in HPI and below (Subjective) Exam Narrative: General: Pt is alert awake and in NAD, cachectic Lungs/Chest: Trachea central Clear BS B/L, No crackles or wheezing. Cardiac: RRR. Normal S1 S2. No murmurs Circulation: Pedal pulses are weak but palpable and symmetrical. Abdomen: Normal bowel sounds.. Soft. NT. ND. Firm Mass palpable Extremities: No clubbing, cyanosis or edema. Warm : Mojica in place Neurologic: Follows commands. Moves all 4 extremities PERRL AO x2 Skin: No Rash HEENT: No teeth or dentures, speech not very clear Objective Data Vital Signs Vital Signs: Vital Signs - 24 hr 12/23/23 10:00 12/23/23 10:00 12/23/23 12:03 Temperature 37.4 C Pulse Rate 56 L 56 L 56 L Respiratory Rate 20 Blood Pressure 85/45 L 85/45 L Pulse Oximetry 96 Oxygen Delivery 12/23/23 12:00 12/23/23 12:00 12/23/23 12:00 Temperature 36.6 C Pulse Rate 74 74 56 L Respiratory Rate 16 16 Blood Pressure 137/72 Pulse Oximetry 97 97 Oxygen Delivery Room Air 12/23/23 14:00 12/23/23 14:00 12/23/23 13:00 Temperature 36.6 C Pulse Rate 81 108 H 72 Respiratory Rate 26 H Blood Pressure 101/57 L 126/65 Pulse Oximetry 97 Oxygen Delivery 12/23/23 13:15 12/23/23 14:23 12/23/23 14:33 Temperature Pulse Rate 81 83 79 Respiratory Rate Blood Pressure 128/71 108/59 L 111/58 L Pulse Oximetry Oxygen Delivery 12/23/23 14:52 12/23/23 15:09 12/23/23 10:00 Temperature Pulse Rate 76 78 63 Respiratory Rate Blood Pressure 104/56 L 97/55 L 107/58 L Pulse Oximetry Oxygen Delivery 12/23/23 16:00 12/23/23 16:00 12/23/23 16:00 Temperature 37.1 C Pulse Rate 78 74 72 Respiratory Rate 18 Blood Pressure 97/55 L 97/73 L Pulse
[2023-12-24] MEDS: THIAMINE HCL 200 MG/2 ML VIAL 100 MG IV PUSH (08:46)
[2023-12-24] MEDS: CEFEPIME 1 GM/NS 50 ML 1 GM/50 ML BAG IVPB (08:47)
[2023-12-24] MEDS: CITALOPRAM HYDROBROMIDE 10 MG TABLET PO (08:47)
[2023-12-24] MEDS: QUEtiapine FUMARATE 25 MG TABLET PO (08:47)
[2023-12-24] MEDS: PANTOPRAZOLE SODIUM IV 40 MG VIAL IV PUSH (08:47)
[2023-12-24] MEDS: PRAVASTATIN SODIUM 20 MG TABLET PO (08:51)
[2023-12-24] MEDS: POTASSIUM CHLORIDE 20 MEQ PACKET (FOR LIQUID) 40 MEQ PO ×2 (08:51→13:10)
[2023-12-24] MEDS: KCL 20 MEQ/0.45% NS 1,000 ML 50 ML IV CONT (08:57)
--- NOTE | 2023-12-24 10:19 | P.CDI_ITS ---
CDI Query Clarification Request BMI 18.9 Nutritional Diagnostic Statement Severe protein calorie malnutrition as related to inadequate protein energy intake with increased protein-energy needs in setting of chronic disease (cancer) as evidenced by minimal oral intake for >1-2 months, significant weight loss of 28% (49lbs) in 2 months; severe muscle wasting (temporalis, clavicle region) and severe subcutaneous fat loss (orbital pads, ribs). Please refer to the comprehensive nutrition assessment for further information. Please clarify severity of protein calorie malnutrition if known: * Mild * Moderate * Severe * Other/Unspecified <Ginger Spence RN - Last Filed: 12/24/23 10:28> Clarified Diagnosis Clarified Diagnosis: severe protein calorie malnutrition <Bridget Cordova MD - Last Filed: 12/25/23 14:36>
--- NOTE | 2023-12-24 11:14 | PCFNICU ---
ICU Rounding Note: Pt current nutrition is Clear Liquids. Nutrition recommendation:advance as tolerated per MD orders. Last recorded weight is 58.6 kg, stable Bowel Motility: +BM reported 4/3 Labs Reviewed:Glu 147, Cr 0.5,Na 131, K 3.3,Hct 24.9,Hgb 7.7 Meds Noted:Heparin, Seroquel, Thiamine, Vancomycin Skin: WNL Additional Notes: Patient remains on a clear liquid diet. Intake 100% of tray for breakfast. Discussion regarding possible colonoscopy in 1-2 days. Mirror Painter will leave clear liquid for now. Patient is also receiving Ensure Clear on trays providing an additional 240 kcals and 8 gms protein. Following daily in ICU rounds. Will monitor weight, labs, skin, meds, oral intake every 3 days.
[2023-12-24] MEDS: CENTRAL LINE FLUSH 10 ML IV PUSH ×2 (13:16→21:03)
--- NOTE | 2023-12-24 13:39 | PM.PNGS ---
Progress Note: A&P Assessment and Plan (1) Colonic mass: Code(s): K63.89 - Other specified diseases of intestine Status: Acute Assessment and Plan: Found to have a large colonic mass. Still no signs of an obstruction. Overall poor surgical candidate. GI following and possibly planning a colonoscopy once he is more stable. Vasopressors have been weaned off. Still no family or close contacts identified by staff to discuss his prognosis and care. Nursing will speak to care coordination to try and reach out to [place] for any possible contacts they may have for him. (2) Tobacco abuse: Code(s): Z72.0 - Tobacco use Status: Acute (3) Chronic alcohol abuse: Code(s): F10.10 - Alcohol abuse, uncomplicated Status: Acute (4) Shock: Code(s): R57.9 - Shock, unspecified Status: Acute Assessment and Plan: Levophed off. WBC normalized. Blood cultures pending. Continue IV antibiotics. (5) COPD (chronic obstructive pulmonary disease): Code(s): J44.9 - Chronic obstructive pulmonary disease, unspecified Status: Acute (6) Normocytic anemia: Code(s): D64.9 - Anemia, unspecified Status: Acute (7) Malnutrition related to chronic disease: Code(s): E46 - Unspecified protein-calorie malnutrition Status: Acute Assessment and Plan: Patient will be high risk for healing complications including anastomotic leak. Plan I have discussed the patient's case and plan of care with Dr. Sher. Subjective Subjective Date/Time Seen: 12/24/23 13:39 Patient reports: no new complaints Interval history: Patient seen in ICU. Vasopressors off. He denies any abdominal pain, nausea, or vomiting. Still some confusion today, but answers questions appropriately. Denies having any family that can be contacted. Nursing is going to have care coordination try contacting [place] for any possible close contacts for the patient. Exam Const: General: no acute distress and ill appearing chronically Nutritional Appearance: cachectic Orientation/consciousness: oriented to person and oriented to place GI: Inspection: non-distended GI Palp: Yes Soft to palpation, Yes Tenderness to palpation present (GI) (Diffuse mild tenderness ), No Guarding due to palpation present (GI), Yes Palpable mass present (Large palpable mass in the left upper quadrant) and No Rebound tenderness present Auscultation: normal bowel sounds Objective Data Vital Signs Vital Signs: Vital Signs - 24 hr 12/23/23 14:00 12/23/23 14:00 12/23/23 14:23 Temperature 97.9 F Pulse Rate 81 108 H 83 Respiratory Rate 26 H Blood Pressure 101/57 L 108/59 L Pulse Oximetry 97 Oxygen Delivery 12/23/23 14:33 12/23/23 14:52 12/23/23 15:09 Temperature Pulse Rate 79 76 78 Respiratory Rate Blood Pressure 111/58 L 104/56 L 97/55 L Pulse Oximetry Oxygen Delivery 12/23/23 16:00 12/23/23 16:00 12/23/23 16:00 Temperature 98.7 F Pulse Rate 78 74 72 Respiratory Rate 18 Blood Pressure 97/55 L 97/73 L Pulse Oximetry 98 Oxygen Delivery 12/23/23 16:00 12/23/23 18:00 12/23/23 18:00 Temperature 98.3 F Pulse Rate 72 74 74 Respiratory Rate 18 22 H Blood Pressure 102/65 Pulse Oximetry 98 98 Oxygen Delivery Room Air 12/23/23 18:00 12/23/23 18:55 12/23/23 20:17 Temperature Pulse Rate 75 71 71 Respiratory Rate Blood Pressure 102/65 109/60 109/60 Pulse Oximetry Oxygen Delivery 12/23/23 20:00 12/23/23 20:00 12/23/23 20:00 Temperature 97.6 F Pulse Rate 71 67 67 Respiratory Rate 22 H 18 Blood Pressure 103/57 L Pulse Oximetry 98 98 Oxygen Delivery Room Air 12/23/23 21:59 12/23/23 22:00 12/24/23 00:14 Temperature 97.5 F L Pulse Rate 66 66 60 Respiratory Rate 18 Blood Pressure 109/62 121/61 129/69 Pulse Oximetry 99 Oxygen Delivery 12/24/23 00:00 12/24/23 00:00 12/24/23 00:00 Temperature 96.3 F L
--- NOTE | 2023-12-24 16:50 | WPDGIPROGNO ---
Progress Note: A&P Assessment and Plan (1) Shock: Code(s): R57.9 - Shock, unspecified Status: Acute Assessment and Plan: resolved off pressors (2) Colonic mass: Code(s): K63.89 - Other specified diseases of intestine Status: Acute Assessment and Plan: large colon mass will give another day to recover and plan is to do colonoscopy Friday CEA level 1000 (3) Malnutrition related to chronic disease: Code(s): E46 - Unspecified protein-calorie malnutrition Status: Acute Assessment and Plan: cachectic looking (4) Iron deficiency anemia: Code(s): D50.9 - Iron deficiency anemia, unspecified Status: Acute Assessment and Plan: probably from colon cancer (5) COPD (chronic obstructive pulmonary disease): Code(s): J44.9 - Chronic obstructive pulmonary disease, unspecified Status: Acute (6) Weight loss: Code(s): R63.4 - Abnormal weight loss Status: Acute Subjective Date/time seen: 12/24/23 16:50 Interval history: BP better, off levophed Review of Systems Review of Systems: All systems reviewed & are unremarkable except as noted in HPI and below Exam Const: General: no acute distress and ill appearing chronically Nutritional Appearance: cachectic Orientation/consciousness: oriented to person and oriented to place HENMT: Face/Nose/Sinus: Normal nares present Eyes: Sclera: sclerae normal Neck: Neck: supple Resp: Effort & Inspection: normal respiratory effort Cardio: Rate: regular rate GI: Inspection: non-distended GI Palp: Yes Soft to palpation, Yes Tenderness to palpation present (GI) (Diffuse mild tenderness ), No Guarding due to palpation present (GI), Yes Palpable mass present (Large palpable mass in the left upper quadrant) and No Rebound tenderness present Auscultation: normal bowel sounds Skin: General skin exam: normal color Neuro: Speech: normal speech Motor exam (neuro): 5/5 motor strength present throughout Extrem: General: normal to inspection Psych: Affect: normal affect Objective Data Vital Signs Vital Signs: Vital Signs - 24 hr 12/23/23 18:00 12/23/23 18:00 12/23/23 18:00 Temperature 98.3 F Pulse Rate 74 74 75 Respiratory Rate 22 H Blood Pressure 102/65 102/65 Pulse Oximetry 98 Oxygen Delivery 12/23/23 18:55 12/23/23 20:17 12/23/23 20:00 Temperature Pulse Rate 71 71 71 Respiratory Rate 22 H Blood Pressure 109/60 109/60 Pulse Oximetry 98 Oxygen Delivery Room Air 12/23/23 20:00 12/23/23 20:00 12/23/23 21:59 Temperature 97.6 F Pulse Rate 67 67 66 Respiratory Rate 18 Blood Pressure 103/57 L 109/62 Pulse Oximetry 98 Oxygen Delivery 12/23/23 22:00 12/24/23 00:14 12/24/23 00:00 Temperature 97.5 F L Pulse Rate 66 60 58 L Respiratory Rate 18 18 Blood Pressure 121/61 129/69 Pulse Oximetry 99 99 Oxygen Delivery Room Air 12/24/23 00:00 12/24/23 00:00 12/24/23 02:00 Temperature 96.3 F L Pulse Rate 63 62 60 Respiratory Rate 20 Blood Pressure 130/68 128/67 Pulse Oximetry 99 Oxygen Delivery 12/24/23 02:00 12/24/23 04:04 12/24/23 04:00 Temperature Pulse Rate 58 L 63 63 Respiratory Rate 20 20 Blood Pressure 126/67 125/65 Pulse Oximetry 100 99 Oxygen Delivery Room Air 12/24/23 04:00 12/24/23 04:00 12/24/23 05:49 Temperature 96.2 F L 96.6 F L Pulse Rate 62 61 55 L Respiratory Rate 22 H 22 H Blood Pressure 125/65 128/66 Pulse Oximetry 99 98 Oxygen Delivery 12/24/23 06:52 12/24/23 07:54 12/24/23 08:46 Temperature 96.5 F L Pulse Rate 59 L 57 L Respiratory Rate 13 Blood Pressure 134/75 129/77 Pulse Oximetry 100 100 Oxygen Delivery 12/24/23 09:00 12/24/23 08:00 12/24/23 08:00 Temperature Pulse Rate 80 59 L Respiratory Rate Blood Pressure 119/67 Pulse Oximetry 100 Oxygen Delivery Room Air 12/24/23 10:00 12/24/23 10:00 12/24/23 11:40 [facility]
--- NOTE | 2023-12-24 18:01 | PM.IMPN ---
Progress Note: A&P Assessment and Plan (1) Weight loss: Code(s): R63.4 - Abnormal weight loss Status: Acute (2) Iron deficiency anemia: Code(s): D50.9 - Iron deficiency anemia, unspecified Status: Acute Assessment and Plan: watch cbc (3) Electrolyte abnormality: Code(s): E87.8 - Other disorders of electrolyte and fluid balance, not elsewhere classified Status: Acute Assessment and Plan: watch sodium levels (4) Malnutrition related to chronic disease: Code(s): E46 - Unspecified protein-calorie malnutrition Status: Acute Assessment and Plan: continue fluids and ensures dietary consult (5) COPD (chronic obstructive pulmonary disease): Code(s): J44.9 - Chronic obstructive pulmonary disease, unspecified Status: Acute Assessment and Plan: Bronchodilators (6) Colonic mass: Code(s): K63.89 - Other specified diseases of intestine Status: Acute Assessment and Plan: Patient has a large 17 cm colon mass but no obstruction. Consult GI and General surgery. Clear liquid diet (7) Septic shock: Code(s): A41.9 - Sepsis, unspecified organism; R65.21 - Severe sepsis with septic shock Status: Acute Assessment and Plan: Patient with shock which did not improve despite aggressive IV fluids resuscitation. Source not clear but could be bacteremia secondary to colon mass. watch blood cultures Continue empiric vancomycin and cefepime (8) Tobacco abuse: Code(s): Z72.0 - Tobacco use Status: Acute Assessment and Plan: Patient was counseled and encouraged to quit smoking Subjective Date/time seen: 12/24/23 18:01 Interval history: 78-year-old male with past medical history of psychiatric disorder, BPH, GERD, COPD tobacco abuse and distant history of alcohol abuse who was brought in from [facility] after being found down on the ground.? The patient stated he got up from bed and tripped over the bike in his room and readmitted on the floor.?Pt has been in ICU weaned off vasopressors ok to DC out of ICU Pt admitted for septic shock treated with vasopressors albumin and ABX Review of Systems Review of Systems: Not confused holding conversation feels better Exam Narrative: General: older male chronically ill appearing Lungs/Chest: clear lungs Cardiac: RRR. Circulation: Pedal pulses are weak but palpable and symmetrical. Abdomen: Normal bowel sounds.. Soft. NT. ND. Firm Mass palpable Extremities: No clubbing, cyanosis or edema. Warm : Mojica in place Neurologic: Follows commands. Moves all 4 extremities PERRL AO x2 Skin: No Rash HEENT: No teeth or dentures, speech not very clear Objective Data Vital Signs Vital Signs: Vital Signs - 24 hr 12/23/23 18:55 12/23/23 20:17 12/23/23 20:00 Temperature Pulse Rate 71 71 71 Respiratory Rate 22 H Blood Pressure 109/60 109/60 Pulse Oximetry 98 Oxygen Delivery Room Air 12/23/23 20:00 12/23/23 20:00 12/23/23 21:59 Temperature 36.4 C Pulse Rate 67 67 66 Respiratory Rate 18 Blood Pressure 103/57 L 109/62 Pulse Oximetry 98 Oxygen Delivery 12/23/23 22:00 12/24/23 00:14 12/24/23 00:00 Temperature 36.4 C L Pulse Rate 66 60 58 L Respiratory Rate 18 18 Blood Pressure 121/61 129/69 Pulse Oximetry 99 99 Oxygen Delivery Room Air 12/24/23 00:00 12/24/23 00:00 12/24/23 02:00 Temperature 35.7 C L Pulse Rate 63 62 60 Respiratory Rate 20 Blood Pressure 130/68 128/67 Pulse Oximetry 99 Oxygen Delivery 12/24/23 02:00 12/24/23 04:04 12/24/23 04:00 Temperature Pulse Rate 58 L 63 63 Respiratory Rate 20 20 Blood Pressure 126/67 125/65 Pulse Oximetry 100 99 Oxygen Delivery Room Air 12/24/23 04:00 12/24/23 04:00 12/24/23 05:49 Temperature 35.7 C L 35.9 C L Pulse Rate 62 61 55 L Respiratory Rate 22 H 22 H Blood Pressure 125/65 128/66 Pulse Oximetry 99 98
--- NOTE | 2023-12-24 18:22 | PC.NURSE ---
Called Dr. Cordova to clarify orders. New orders to start NS @ 100ml/hr after 0.45%NS/20K IV infusion is completed at midnight. Stop PO Potassium until lab redraw in AM, since pt has received a total of 80meq PO potassium today.
--- NOTE | 2023-12-24 18:26 | PC.NURSE ---
Janis with [facility] called for an update on patient. Information provided and all questions answered
[2023-12-24] MEDS: CEFEPIME 2 GM/NS 50 ML 2 GM/50 ML BAG IVPB (21:03)
[2023-12-24] MEDS: QUEtiapine FUMARATE 100 MG TABLET 400 MG PO (21:03)
[2023-12-24 21:28] LABS: Vancomycin Trough 6.3 ug/mL (10.0-20.0)
[2023-12-24] MEDS: VANCOMYCIN 1,000 MG/NS 250 ML 1,000 MG/250 ML BAG 250 MG IVPB (23:47)
[2023-12-25] VITALS (11 sets, daily range): BP systolic 107–130; BP diastolic 54–66; PULSE 62–90; RESP 16–20; TEMP 35.7–37.3; O2SAT 94–100
[2023-12-25] MEDS: SODIUM CHLORIDE 0.9% IV 1,000 ML 100 ML IV CONT ×3 (04:00→20:30)
[2023-12-25] MEDS: CENTRAL LINE FLUSH 10 ML IV PUSH (04:25)
[2023-12-25 06:03] LABS: Hematocrit 24.6 % (42.0-52.0); Hemoglobin 7.3 g/dL (14.0-18.0); Mean Corpuscular HGB Conc 29.7 g/dl (32-36); Mean Corpuscular Hemoglobin 24.5 pg (26-34); Mean Corpuscular Volume 82.6 fl (80-100); Mean Platelet Volume 9.4 fl (7.4-10.4); Platelet Count Result 224 k/mm3 (150-375); Red Blood Count 2.98 M/mm3 (4.6-6.20); Red Cell Distribution Width 16.9 % (11.5-14.5)
[2023-12-25] MEDS: HEPARIN SODIUM 5,000 UNITS/ML VIAL 5000 UNITS SUB-Q ×2 (06:09→13:25)
[2023-12-25 06:20] LABS: Alanine Aminotransferase 10 U/L (6-50); Alkaline Phosphatase 71 U/L (38-126); Anion Gap 2 mmol/L (4-12); Aspartate Amino Transferase 19 U/L (17-59); Bilirubin,Total 0.7 mg/dL (0.2-1.3); Blood Urea Nitrogen 6 mg/dL (9-20); Calcium 8.7 mg/dL (8.4-10.2); Carbon Dioxide 29 mmol/L (22-30); Chloride 107 mmol/L (98-107); Estimated CRCL calculation 88 ml/min; Estimated Glomerular Filt Rate > 60; Glucose 114 mg/dL (65-110); Magnesium 2.1 mg/dL (1.6-2.3); Phosphorus 2.1 mg/dL (2.5-4.5); Potassium 3.6 mmol/L (3.4-5.0); Sodium 138 mmol/L (137-145)
[2023-12-25] MEDS: PANTOPRAZOLE SODIUM IV 40 MG VIAL IV PUSH (08:27)
[2023-12-25] MEDS: CITALOPRAM HYDROBROMIDE 10 MG TABLET PO (08:27)
[2023-12-25] MEDS: QUEtiapine FUMARATE 25 MG TABLET PO (08:27)
[2023-12-25] MEDS: THIAMINE HCL 200 MG/2 ML VIAL 100 MG IV PUSH (08:27)
[2023-12-25] MEDS: PRAVASTATIN SODIUM 20 MG TABLET PO (08:27)
[2023-12-25] MEDS: CEFEPIME 2 GM/NS 50 ML 2 GM/50 ML BAG IVPB (08:28)
--- NOTE | 2023-12-25 12:55 | PM.IMPN ---
Progress Note: A&P Assessment and Plan (1) Weight loss: Code(s): R63.4 - Abnormal weight loss Status: Acute Assessment and Plan: likely secondary to colon mass (2) Iron deficiency anemia: Code(s): D50.9 - Iron deficiency anemia, unspecified Status: Acute Assessment and Plan: watch cbc hb is around 7 can tranfuse one unit of blood (3) Electrolyte abnormality: Code(s): E87.8 - Other disorders of electrolyte and fluid balance, not elsewhere classified Status: Acute Assessment and Plan: watch sodium levels (4) Malnutrition related to chronic disease: Code(s): E46 - Unspecified protein-calorie malnutrition Status: Acute Assessment and Plan: continue fluids and ensures dietary consult (5) COPD (chronic obstructive pulmonary disease): Code(s): J44.9 - Chronic obstructive pulmonary disease, unspecified Status: Acute Assessment and Plan: Bronchodilators (6) Colonic mass: Code(s): K63.89 - Other specified diseases of intestine Status: Acute Assessment and Plan: Patient has a large 17 cm colon mass but no obstruction. Consult GI and General surgery. Clear liquid diet Pt will likely need colonoscopy and biopsy soon (7) Septic shock: Code(s): A41.9 - Sepsis, unspecified organism; R65.21 - Severe sepsis with septic shock Status: Acute Assessment and Plan: Patient with shock which did not improve despite aggressive IV fluids resuscitation. Source not clear but could be bacteremia secondary to colon mass. blood cultures are negative can dc IV abx (8) Tobacco abuse: Code(s): Z72.0 - Tobacco use Status: Acute Assessment and Plan: Patient was counseled and encouraged to quit smoking Subjective Date/time seen: 12/25/23 12:55 Interval history: 78-year-old male with past medical history of psychiatric disorder, BPH, GERD, COPD tobacco abuse and distant history of alcohol abuse who was brought in from [facility] after being found down on the ground.? The patient stated he got up from bed and tripped over the bike in his room and readmitted on the floor.?Pt has been in ICU weaned off vasopressors ok to DC out of ICU 12/24/2023t admitted for septic shock treated with vasopressors albumin and ABX, pt downgraded to imu status off vasopressors 12/25/2023 Pt is doing better today, pt is on fluids for hypotension,blood cultures are negative, can dc vanc and Maxipime, pt should be having colonoscopy with biopsy soon, hb is low may transfuse one unit of blood, stabilize before colonoscopy Review of Systems Review of Systems: Asymptomatic looks pale and weak Exam Narrative: General: older male chronically ill appearing Lungs/Chest: clear lungs Cardiac: RRR. Circulation: Pedal pulses are weak but palpable and symmetrical. Abdomen: Normal bowel sounds.. Soft. NT. ND. Firm Mass palpable Extremities: No clubbing, cyanosis or edema. Warm : Mojica in place Neurologic: Follows commands. Moves all 4 extremities PERRL AO x2 Skin: No Rash HEENT: No teeth or dentures, speech not very clear Objective Data Vital Signs Vital Signs: Vital Signs - 24 hr 12/24/23 13:24 12/24/23 15:59 12/24/23 20:00 Temperature 36.3 C L Pulse Rate 66 Respiratory Rate 20 Blood Pressure 99/63 L Pulse Oximetry 100 97 Oxygen Delivery Room Air Room Air 12/25/23 00:00 12/25/23 08:00 12/25/23 08:00 Temperature 35.7 C L 36.3 C L Pulse Rate 62 62 62 Respiratory Rate 20 18 18 Blood Pressure 130/66 130/66 Pulse Oximetry 96 94 94 Oxygen Delivery Room Air 12/25/23 09:18 Temperature Pulse Rate Respiratory Rate Blood Pressure Pulse Oximetry Oxygen Delivery Room Air Intake/Output Intake/Output: Intake & Output 12/22/23 12/23/23 12/24/23 12/25/23 23:59 23:59 23:59 23:59 Intake Total 3359.2 2927.2 2803.6 730 Output Total 1650 3450 2500 Balance 3
--- NOTE | 2023-12-25 13:25 | PC.NURSE ---
This patient, Mario Gomez Jr., was transferred to [facility] on 12/25/23 at [address]. Personal belongings sent with patient. Report given to RN. Appropriate documentation sent with patient.
--- NOTE | 2023-12-25 16:13 | PM.PNGS ---
Progress Note: A&P Assessment and Plan (1) Colonic mass: Code(s): K63.89 - Other specified diseases of intestine Status: Acute Assessment and Plan: Found to have a large colonic mass on CT. CEA 1070. This is likely colon cancer. Still no signs of an obstruction. Overall poor surgical candidate. GI following and possibly planning a colonoscopy tomorrow. Appears patient has no family or contacts other than [facility] to discuss his treatment options. (2) Tobacco abuse: Code(s): Z72.0 - Tobacco use Status: Acute (3) Chronic alcohol abuse: Code(s): F10.10 - Alcohol abuse, uncomplicated Status: Acute (4) Shock: Code(s): R57.9 - Shock, unspecified Status: Acute Assessment and Plan: Resolved. Transferred out of ICU today. Blood cx NGTD. (5) COPD (chronic obstructive pulmonary disease): Code(s): J44.9 - Chronic obstructive pulmonary disease, unspecified Status: Acute (6) Normocytic anemia: Code(s): D64.9 - Anemia, unspecified Status: Acute (7) Malnutrition related to chronic disease: Code(s): E46 - Unspecified protein-calorie malnutrition Status: Acute Assessment and Plan: Patient will be high risk for healing complications including anastomotic leak. Plan I have discussed the patient's case and plan of care with Dr. Sher. Subjective Subjective Date/Time Seen: 12/25/23 16:13 Patient reports: no new complaints, flatus and bowel movement Interval history: Patient with no specific complaints for me today. He has moved his bowels today and tolerating full liquids. He was moved out of ICU today and is on the medical floor. Exam Const: General: cachectic; No acute distress GI: Inspection: non-distended GI Palp: Yes Soft to palpation, Yes Tenderness to palpation present (GI) (LUQ near mass), No Guarding due to palpation present (GI), Yes Palpable mass present (firm palpable mass in the LUQ) and No Rebound tenderness present Auscultation: normal bowel sounds Objective Data Vital Signs Vital Signs: Vital Signs - 24 hr 12/24/23 20:00 12/25/23 00:00 12/25/23 08:00 Temperature 96.3 F L 97.3 F L Pulse Rate 62 62 Respiratory Rate 20 18 Blood Pressure 130/66 130/66 Pulse Oximetry 97 96 94 Oxygen Delivery Room Air 12/25/23 08:00 12/25/23 09:18 12/25/23 12:50 Temperature 96.3 F L Pulse Rate 62 75 Respiratory Rate 18 18 Blood Pressure 118/57 L Pulse Oximetry 94 100 Oxygen Delivery Room Air Room Air 12/25/23 12:50 12/25/23 15:27 Temperature 96.5 F L Pulse Rate 72 Respiratory Rate 18 Blood Pressure 120/62 Pulse Oximetry 100 Oxygen Delivery Room Air Intake/Output Intake/Output: Intake & Output 12/22/23 12/23/23 12/24/23 12/25/23 23:59 23:59 23:59 23:59 Intake Total 3359.2 2927.2 2803.6 2090 Output Total 1650 3450 2500 Balance 3359.2 1277.2 -646.4 -410 Meds/Results Medications: Active Medications Generic Name Dose Route Start Last Admin Trade Name Freq PRN Reason Stop Dose Admin Acetaminophen 650 mg 12/22/23 20:09 Acetaminophen 325 Mg Tablet PO Q4H PRN Mild Pain (1-3) or Fever Albuterol/Ipratropium 3 ml 12/23/23 08:49 Ipratropium 0.5 Mg/Albuterol Sulfate 2.5 Mg Ampul.Neb 3 Ml INHALATION Q6HRT PRN Wheezing or shortness of breath Citalopram Hydrobromide 10 mg 12/24/23 09:00 12/25/23 08:27 Citalopram Hydrobromide 10 Mg Tablet PO 10 mg QAM AQUILES Administration Heparin Sodium (Porcine) 5,000 units 12/23/23 06:00 12/25/23 13:25 Heparin Sodium 5,000 Units/Ml Vial SUB-Q 5,000 units Q8HR AQUILES Administration Sodium Chloride 1,000 mls @ 100 mls/hr 12/25/23 00:00 12/25/23 14:42 Normal Saline Iv IV CONT 100 mls/hr .Q10H AQUILES Administration Ondansetron HCl 4 mg 12/22/23 20:09 Ondansetron Inj 4 Mg/2 Ml Vial IV PUSH Q4H PRN Nausea Pantoprazole Sodium 40 mg 12/23/23 09:00 12/25/23 08:27
[2023-12-25] MEDS: TUBING, BLOOD PLUM PUMP TUBING 1 EACH XX (17:35)
--- NOTE | 2023-12-25 18:04 | WPDGIPROGNO ---
Progress Note: A&P Assessment and Plan (1) Colonic mass: Code(s): K63.89 - Other specified diseases of intestine Status: Acute Assessment and Plan: large colon mass bowel prep today and colonoscopy tomorrow CEA level 1000 surgery on board (2) Shock: Code(s): R57.9 - Shock, unspecified Status: Acute Assessment and Plan: resolved normal BP now (3) Malnutrition related to chronic disease: Code(s): E46 - Unspecified protein-calorie malnutrition Status: Acute Assessment and Plan: cachectic looking (4) Iron deficiency anemia: Code(s): D50.9 - Iron deficiency anemia, unspecified Status: Acute Assessment and Plan: probably from colon cancer (5) COPD (chronic obstructive pulmonary disease): Code(s): J44.9 - Chronic obstructive pulmonary disease, unspecified Status: Acute (6) Weight loss: Code(s): R63.4 - Abnormal weight loss Status: Acute Subjective Date/time seen: 12/25/23 18:04 Interval history: he is in regular floor now, comfortable Review of Systems Review of Systems: All systems reviewed & are unremarkable except as noted in HPI and below Exam Const: General: no acute distress and ill appearing chronically Nutritional Appearance: cachectic Orientation/consciousness: oriented to person and oriented to place HENMT: Face/Nose/Sinus: Normal nares present Eyes: Sclera: sclerae normal Neck: Neck: supple Resp: Effort & Inspection: normal respiratory effort Cardio: Rate: regular rate GI: Inspection: non-distended GI Palp: Yes Soft to palpation, Yes Tenderness to palpation present (GI) (Diffuse mild tenderness ), No Guarding due to palpation present (GI), Yes Palpable mass present (Large palpable mass in the left upper quadrant) and No Rebound tenderness present Auscultation: normal bowel sounds Skin: General skin exam: normal color Neuro: Speech: normal speech Motor exam (neuro): 5/5 motor strength present throughout Extrem: General: normal to inspection Psych: Affect: normal affect Objective Data Vital Signs Vital Signs: Vital Signs - 24 hr 12/24/23 20:00 12/25/23 00:00 12/25/23 08:00 Temperature 96.3 F L 97.3 F L Pulse Rate 62 62 Respiratory Rate 20 18 Blood Pressure 130/66 130/66 Pulse Oximetry 97 96 94 Oxygen Delivery Room Air 12/25/23 08:00 12/25/23 09:18 12/25/23 12:50 Temperature 96.3 F L Pulse Rate 62 75 Respiratory Rate 18 18 Blood Pressure 118/57 L Pulse Oximetry 94 100 Oxygen Delivery Room Air Room Air 12/25/23 12:50 12/25/23 15:27 12/25/23 17:35 Temperature 96.5 F L 98.9 F Pulse Rate 72 90 Respiratory Rate 18 18 Blood Pressure 120/62 120/64 Pulse Oximetry 100 96 Oxygen Delivery Room Air 12/25/23 17:35 12/25/23 17:59 Temperature 98.9 F 98.9 F Pulse Rate 90 90 Respiratory Rate 18 18 Blood Pressure 120/64 120/64 Pulse Oximetry 96 96 Oxygen Delivery Intake/Output Intake/Output: Intake & Output 12/22/23 12/23/23 12/24/23 12/25/23 23:59 23:59 23:59 23:59 Intake Total 3359.2 2927.2 2803.6 2330 Output Total 1650 3450 2750 Balance 3359.2 1277.2 -646.4 -420 Meds/Results Medications: Active Medications Generic Name Dose Route Start Last Admin Trade Name Freq PRN Reason Stop Dose Admin Acetaminophen 650 mg 12/22/23 20:09 Acetaminophen 325 Mg Tablet PO Q4H PRN Mild Pain (1-3) or Fever Albuterol/Ipratropium 3 ml 12/23/23 08:49 Ipratropium 0.5 Mg/Albuterol Sulfate 2.5 Mg Ampul.Neb 3 Ml INHALATION Q6HRT PRN Wheezing or shortness of breath Bisacodyl 20 mg 12/25/23 18:30 Bisacodyl 5 Mg Tablet Ec PO 12/25/23 18:31 ONCE ONE Citalopram Hydrobromide 10 mg 12/24/23 09:00 12/25/23 08:27 Citalopram Hydrobromide 10 Mg Tablet PO 10 mg QAM AQUILES Administration Heparin Sodium (Porcine) 5,000 units 12/23/23 06:00 12/25/23 13:25 Heparin Sodium 5,000 Units/Ml Vial SUB-Q
[2023-12-25] MEDS: QUEtiapine FUMARATE 100 MG TABLET 400 MG PO (20:30)
[2023-12-25] MEDS: BISACODYL 5 MG TABLET EC 20 MG PO (20:30)
[2023-12-25] MEDS: polyethylene glycoL 3350 238 GM BOTTLE PO (20:30)
[2023-12-26] VITALS (12 sets, daily range): BP systolic 110–142; BP diastolic 65–87; PULSE 66–96; RESP 14–25; TEMP 35.9–37; O2SAT 96–100
[2023-12-26] MEDS: MAGNESIUM CITRATE 300 ML BTL PO (02:25)
[2023-12-26 06:42] LABS: Hemoglobin 11.3 g/dL (14.0-18.0); Mean Corpuscular HGB Conc 31.4 g/dl (32-36); Mean Corpuscular Hemoglobin 26.1 pg (26-34); Mean Corpuscular Volume 83.1 fl (80-100); Mean Platelet Volume 8.9 fl (7.4-10.4); Platelet Count Result 223 k/mm3 (150-375); Red Blood Count 4.33 M/mm3 (4.6-6.20); Red Cell Distribution Width 16.2 % (11.5-14.5); White Blood Count 11.4 K/mm3 (4.5-10.0)
[2023-12-26 06:52] LABS: Alanine Aminotransferase 32 U/L (6-50); Albumin Level 3.1 g/dL (3.5-5.1); Alkaline Phosphatase 111 U/L (38-126); Anion Gap 3 mmol/L (4-12); Aspartate Amino Transferase 87 U/L (17-59); Bilirubin,Total 0.8 mg/dL (0.2-1.3); Blood Urea Nitrogen 7 mg/dL (9-20); Calcium 8.6 mg/dL (8.4-10.2); Carbon Dioxide 26 mmol/L (22-30); Chloride 105 mmol/L (98-107); Estimated CRCL calculation 93 ml/min; Estimated Glomerular Filt Rate > 60; Glucose 137 mg/dL (65-110); Magnesium 2.2 mg/dL (1.6-2.3); Phosphorus 2.2 mg/dL (2.5-4.5); Potassium 3.2 mmol/L (3.4-5.0); Sodium 134 mmol/L (137-145)
[2023-12-26] MEDS: ONDANSETRON INJ 4 MG/2 ML VIAL IV PUSH (08:13)
--- NOTE | 2023-12-26 08:53 | PM.IMPN ---
Progress Note: A&P Assessment and Plan (1) Weight loss: Code(s): R63.4 - Abnormal weight loss Status: Acute (2) Iron deficiency anemia: Code(s): D50.9 - Iron deficiency anemia, unspecified Status: Acute (3) COPD (chronic obstructive pulmonary disease): Code(s): J44.9 - Chronic obstructive pulmonary disease, unspecified Status: Acute (4) Colonic mass: Code(s): K63.89 - Other specified diseases of intestine Status: Acute (5) Septic shock: Code(s): A41.9 - Sepsis, unspecified organism; R65.21 - Severe sepsis with septic shock Status: Acute Plan (1) Weight loss: ?Code(s): R63.4 - Abnormal weight loss ?Status:?Acute ?Assessment and Plan: likely secondary to colon mass (2) Iron deficiency anemia: ?Code(s): D50.9 - Iron deficiency anemia, unspecified ?Status:?Acute ?Assessment and Plan: watch cbc hb is around 7 can tranfuse one unit of blood (3) Electrolyte abnormality: ?Code(s): E87.8 - Other disorders of electrolyte and fluid balance, not elsewhere classified ?Status:?Acute ?Assessment and Plan: watch sodium levels (4) Malnutrition related to chronic disease: ?Code(s): E46 - Unspecified protein-calorie malnutrition ?Status:?Acute ?Assessment and Plan: continue fluids and ensures dietary consult (5) COPD (chronic obstructive pulmonary disease): ?Code(s): J44.9 - Chronic obstructive pulmonary disease, unspecified ?Status:?Acute ?Assessment and Plan: Bronchodilators (6) Colonic mass: ?Code(s): K63.89 - Other specified diseases of intestine ?Status:?Acute ?Assessment and Plan: Patient has a large 17 cm colon mass but no obstruction.? Consult GI and General surgery.? Clear liquid diet Pt will likely need colonoscopy and biopsy soon 4/5 ?colonoscopy today per GI, biopsy was done. No complications during the procedure (7) Septic shock: ?Code(s): A41.9 - Sepsis, unspecified organism; R65.21 - Severe sepsis with septic shock ?Status:?Acute ?Assessment and Plan: Patient with shock which did not improve despite aggressive IV fluids resuscitation.? Source not clear but could be bacteremia secondary to colon mass. blood cultures are negative can dc IV abx (8) Tobacco abuse: ?Code(s): Z72.0 - Tobacco use ?Status:?Acute ?Assessment and Plan: Patient was counseled and encouraged to quit smoking Subjective Date/time seen: 12/26/23 08:53 Interval history: I saw exam patient today after patient came back from colonoscopy. Patient still has left lower quadrant pain about 7, has nausea. Denies vomiting, chest pain, bloody stool. Patient is afebrile, blood pressure stable, pulse ox 96 on room air. Patient denies headache, focal weakness Exam Narrative: General: older male chronically ill appearing Lungs/Chest: clear lungs Cardiac: RRR. Circulation: Pedal pulses are weak but palpable and symmetrical. Abdomen: Normal bowel sounds.. Soft. NT. ND. Firm Mass palpable at left lower abdomen Extremities: No clubbing, cyanosis or edema. Warm : Mojica in place Neurologic: Follows commands. Moves all 4 extremities PERRL AO x2 Skin: No Rash HEENT: No teeth or dentures, speech not very clear Objective Data Vital Signs Vital Signs: Vital Signs - 24 hr 12/25/23 09:18 12/25/23 12:50 12/25/23 12:50 Temperature 96.3 F L Pulse Rate 75 Respiratory Rate 18 Blood Pressure 118/57 L Pulse Oximetry 100 Oxygen Delivery Room Air Room Air 12/25/23 15:27 12/25/23 17:35 12/25/23 17:35 Temperature 96.5 F L 98.9 F 98.9 F Pulse Rate 72 90 90 Respiratory Rate 18 18 18 Blood Pressure 120/62 120/64 120/64 Pulse Oximetry 100 96 96 Oxygen Delivery 12/25/23 17:59 12/25/23 17:58 12/25/23 18:55 Temperature 98.9 F 99.1 F 98.7 F Pulse Rate 90 88 86 Respiratory Rate 18 18 18 Blood Pressure 120/64 107/54 L 111/57 L Pul
[2023-12-26] MEDS: LACTATED RINGERS 1,000 ML 150 ML IV CONT (10:51)
--- NOTE | 2023-12-26 11:25 | WPDANESEPPF ---
Anes - Initial Pre Proc Eval Procedure: Operation Date: 12/26/23 15:00 Proposed Procedures p Colonoscopy - Luis Eduardo Gloria MD Date/Time: 12/26/23 11:25 Surgeon: Zainab Greenberg DO Pre Op Diagnosis: Hypotension; Colon cancer (new dx) Patient Data Age: 78 Gender: M Height: 1.75 m Weight: 62.6 kg Last Vital Signs Temp 97.5 F L 12/26/23 10:35 Pulse 73 12/26/23 10:35 Resp 18 12/26/23 10:35 BP 135/73 12/26/23 10:35 Pulse Ox 98 12/26/23 10:35 O2 Del Method Room Air 12/26/23 10:35 Allergies Allergy/AdvReac Type Severity Reaction Status Date / Time Penicillins Allergy Rash Verified 12/26/23 10:44 Home Medications Medication Instructions Recorded Confirmed Type citalopram 10 mg tablet 10 mg PO DAILY 12/22/23 12/22/23 History doxazosin 4 mg tablet 4 mg PO DAILY 12/22/23 12/22/23 History gabapentin 300 mg tablet,extended 300 mg PO QPM 12/22/23 12/22/23 History release 24 hr hydroxyzine HCl 50 mg tablet 50 mg PO QID PRN Itching 12/22/23 12/22/23 History pantoprazole 40 mg tablet,delayed 40 mg PO QAM 12/22/23 12/22/23 History release quetiapine 25 mg tablet 25 mg PO QAM 12/22/23 12/22/23 History quetiapine 400 mg tablet,extended 400 mg PO HS 12/22/23 12/22/23 History release 24 hr rosuvastatin 20 mg tablet 20 mg PO DAILY 12/22/23 12/22/23 History trazodone 100 mg tablet 100 mg PO HS PRN Insomnia 12/22/23 12/22/23 History Laboratory Tests 12/25/23 12/26/23 16:12 06:27 WBC 11.4 H K/mm3 (4.5-10.0) RBC 4.33 L M/mm3 (4.6-6.20) Hgb 11.3 L D g/dL (14.0-18.0) Hct 36.0 L % (42.0-52.0) MCV 83.1 fl (80-100) MCH 26.1 D pg (26-34) MCHC 31.4 L g/dl (32-36) RDW 16.2 H % (11.5-14.5) Plt Count 223 k/mm3 (150-375) MPV 8.9 fl (7.4-10.4) Sodium 134 L mmol/L (137-145) Potassium 3.2 L mmol/L (3.4-5.0) Chloride 105 mmol/L (98-107) Carbon Dioxide 26 mmol/L (22-30) Anion Gap 3 L mmol/L (4-12) BUN 7 L mg/dL (9-20) Creatinine 0.50 L mg/dL (0.7-1.3) Estim Creat Clear Calc 93 ml/min Estimated GFR > 60 (59 - ) Glucose 137 H mg/dL (65-110) Calcium 8.6 mg/dL (8.4-10.2) Phosphorus 2.2 L mg/dL (2.5-4.5) Magnesium 2.2 mg/dL (1.6-2.3) Total Bilirubin 0.8 mg/dL (0.2-1.3) AST 87 H U/L (17-59) ALT 32 U/L (6-50) Alkaline Phosphatase 111 U/L (38-126) Total Protein 6.0 L g/dL (6.3-8.2) Albumin 3.1 L g/dL (3.5-5.1) Blood Type A Negative Antibody Screen Negative Crossmatch See Detail Patient hx anesthesia problems: none Family hx anesthesia problems: none Results Review: All pre-operative results and documents have been reviewed as part of the pre-operative evaluation. [facility] Past Medical History Medical History (Updated 12/24/23 @ 16:52 by Luis Eduardo Gloria MD) Alcohol abuse Arthritis COPD (chronic obstructive pulmonary disease) Iron deficiency anemia Major depressive disorder Tobacco abuse Weight loss Surgical History Surgical History No history of previous surgery Family History Family History Mother Cancer Social History Social History Social History: Patient lives in his own home and is never been . He does not have any pets. He reports that he has not had any contact with his extended family members. He went drinks to excess but will not give me a specific amount that he drinks. He does new enjoys south flavored vodka. He has smoked a pack of cigarettes per day since he was 30 years old. The patient is evasive when discussing illicit substances but urine drug screen was negative in the ER. Code stat
--- NOTE | 2023-12-26 11:29 | PCPTNOTE ---
The patient treatment was not able to be completed at this time due to patient out of room for colonoscopy. Will plan to continue treatment per plan of care.
--- NOTE | 2023-12-26 12:05 | PCOTNOTE ---
Patient out of the room at this time. Patient is down having a colonoscopy.
--- NOTE | 2023-12-26 13:19 | PCNFU ---
Nutrition Follow-Up Complete: Severe Protein Calorie Malnutrition as related to inadequate protein energy intake with increased protein-energy needs in setting of chronic disease (cancer) as evidenced by minimal oral intake for > 1-2 months, significant weight loss of 28% (49 ibs) in 2 months: severe muscle wasting (temporalis, clavicle region) and severe subcutaneous fat loss (orbital fat pads, ribs) Goal: Meet estimated nutritional needs Pt current nutrition is NPO to advance to low fiber diet tonight. Nutrition recommendation: Add Ensure Enlive BID to orders Last recorded weight is 62.6 kg. Bowel Motility: +BM 4/5 Labs Reviewed: Hgb:11.3, HCT:36, Alb:3.1, NA:134, K:3.2, BUN:7, Cr:0.5, Glu:137 Meds Noted: Thiamine, protonix, Heparin Skin: no skin issues noted Additional Notes: Pt has been NPO, diet orders to start this evening on a low fat diet. Recommend to start Ensure Enlive BID, chocolate, for supplementation. Will monitor weight, labs, skin, meds, oral intake every 3 days.
--- NOTE | 2023-12-26 16:30 | PM.PNGS ---
Progress Note: A&P Assessment and Plan (1) Colonic mass: Code(s): K63.89 - Other specified diseases of intestine Status: Acute Assessment and Plan: Found to have a large colonic mass on CT. CEA 1070. This is likely colon cancer. Still no signs of an obstruction. Will continue regular diet with Ensure supplements BID. Will have to consider TPN if still not getting enough nutrition Repeat Transferrin and prealbumin levels on Friday. Patient wants to have surgery, and I discussed that surgery will be difficult and could encounter massive blood loss which could increase risk of . Also discussed risk of needing an ostomy. Patient voiced his understanding. (2) Tobacco abuse: Code(s): Z72.0 - Tobacco use Status: Acute (3) Chronic alcohol abuse: Code(s): F10.10 - Alcohol abuse, uncomplicated Status: Acute (4) Shock: Code(s): R57.9 - Shock, unspecified Status: Acute Assessment and Plan: Resolved. Transferred out of ICU today. Blood cx NGTD. (5) COPD (chronic obstructive pulmonary disease): Code(s): J44.9 - Chronic obstructive pulmonary disease, unspecified Status: Acute (6) Normocytic anemia: Code(s): D64.9 - Anemia, unspecified Status: Acute (7) Malnutrition related to chronic disease: Code(s): E46 - Unspecified protein-calorie malnutrition Status: Acute Assessment and Plan: Patient will be high risk for healing complications including anastomotic leak. Subjective Subjective Date/Time Seen: 12/26/23 16:30 Interval history: Underwent sigmoidoscopy today. Doing well. Tolerating diet. Patient says he does want to consider surgery. Exam GI: Inspection: non-distended GI Palp: Yes Soft to palpation, Yes Tenderness to palpation present (GI) (slight left mid abdominal tenderness) and Yes Palpable mass present (LUQ) Objective Data Vital Signs Vital Signs: Vital Signs - 24 hr 12/25/23 17:35 12/25/23 17:35 12/25/23 17:59 Temperature 37.2 C 37.2 C 37.2 C Pulse Rate 90 90 90 Respiratory Rate 18 18 18 Blood Pressure 120/64 120/64 120/64 Pulse Oximetry 96 96 96 Oxygen Delivery 12/25/23 17:58 12/25/23 18:55 12/25/23 19:55 Temperature 37.3 C 37.1 C 37.2 C Pulse Rate 88 86 82 Respiratory Rate 18 18 16 Blood Pressure 107/54 L 111/57 L 111/59 L Pulse Oximetry 100 100 96 Oxygen Delivery 12/25/23 23:05 12/25/23 23:20 12/26/23 00:20 Temperature 36.3 C L 36.6 C 36.3 C L Pulse Rate 79 85 76 Respiratory Rate 16 18 16 Blood Pressure 108/60 113/60 120/68 Pulse Oximetry 96 98 99 Oxygen Delivery 12/26/23 01:15 12/26/23 04:31 12/26/23 08:59 Temperature 36.4 C 36.2 C L 36.5 C Pulse Rate 81 94 82 Respiratory Rate 18 16 24 H Blood Pressure 129/69 110/84 136/82 Pulse Oximetry 100 100 97 Oxygen Delivery 12/26/23 08:00 12/26/23 10:35 12/26/23 12:25 Temperature 36.4 C L Pulse Rate 73 68 Respiratory Rate 18 25 H Blood Pressure 135/73 132/77 Pulse Oximetry 98 96 Oxygen Delivery Room Air Room Air Room Air 12/26/23 12:35 12/26/23 12:45 12/26/23 13:00 Temperature 35.9 C L Pulse Rate 66 70 67 Respiratory Rate 24 H 22 H 16 Blood Pressure 112/73 124/65 141/71 H Pulse Oximetry 98 100 100 Oxygen Delivery Room Air Room Air 12/26/23 14:00 Temperature 36.5 C Pulse Rate 96 Respiratory Rate 14 Blood Pressure 142/87 H Pulse Oximetry 97 Oxygen Delivery Intake/Output Intake/Output: Intake & Output 12/23/23 12/24/23 12/25/23 12/26/23 23:59 23:59 23:59 23:59 Intake Total 2927.2 2803.6 3260 500 Output Total 1650 3450 3000 2625 Balance 1277.2 -186.4 260 -4859 Meds/Results Medications: Active Medications Generic Name Dose Route Start Last Admin Trade Name Freq PRN Reason Stop Dose Admin Acetaminophen 650 mg 12/22/23 20:09 Acetaminophen 325 Mg Tablet PO Q4H PRN Mild Pain (1-3) or Fever Albuterol/Ipratropium 3 ml 12/23/23 08:49 Ipratro
[2023-12-26] MEDS: QUEtiapine FUMARATE 100 MG TABLET 400 MG PO (20:36)
[2023-12-26] MEDS: HEPARIN SODIUM 5,000 UNITS/ML VIAL 5000 UNITS SUB-Q (20:36)
[2023-12-26] MEDS: ACETAMINOPHEN 325 MG TABLET 650 MG PO (20:36)
[2023-12-27 04:26] VITALS: BP 122/56; PULSE 73; RESP 16; TEMP 36.6; O2SAT 95
[2023-12-27] MEDS: HEPARIN SODIUM 5,000 UNITS/ML VIAL 5000 UNITS SUB-Q ×2 (05:08→14:46)
[2023-12-27] MEDS: SODIUM CHLORIDE 0.9% IV 1,000 ML 100 ML IV CONT ×3 (05:09→21:29)
[2023-12-27] MEDS: CENTRAL LINE FLUSH 10 ML IV PUSH ×3 (05:09→21:29)
[2023-12-27 05:19] LABS: Hematocrit 33.5 % (42.0-52.0); Hemoglobin 10.5 g/dL (14.0-18.0); Mean Corpuscular HGB Conc 31.3 g/dl (32-36); Mean Corpuscular Hemoglobin 26.1 pg (26-34); Mean Corpuscular Volume 83.3 fl (80-100); Mean Platelet Volume 8.6 fl (7.4-10.4); Platelet Count Result 186 k/mm3 (150-375); Red Blood Count 4.02 M/mm3 (4.6-6.20); Red Cell Distribution Width 16.5 % (11.5-14.5); White Blood Count 8.2 K/mm3 (4.5-10.0)
[2023-12-27 05:29] LABS: Alanine Aminotransferase 26 U/L (6-50); Albumin Level 2.6 g/dL (3.5-5.1); Alkaline Phosphatase 103 U/L (38-126); Anion Gap 0 mmol/L (4-12); Aspartate Amino Transferase 42 U/L (17-59); Bilirubin,Total 0.6 mg/dL (0.2-1.3); Blood Urea Nitrogen 8 mg/dL (9-20); Calcium 8.1 mg/dL (8.4-10.2); Carbon Dioxide 32 mmol/L (22-30); Chloride 102 mmol/L (98-107); Estimated CRCL calculation 92 ml/min; Estimated Glomerular Filt Rate > 60; Glucose 103 mg/dL (65-110); Magnesium 2.3 mg/dL (1.6-2.3); Phosphorus 2.6 mg/dL (2.5-4.5); Potassium 3.5 mmol/L (3.4-5.0); Sodium 134 mmol/L (137-145)
[2023-12-27] MEDS: THIAMINE HCL 200 MG/2 ML VIAL 100 MG IV PUSH (09:41)
[2023-12-27] MEDS: PANTOPRAZOLE SODIUM IV 40 MG VIAL IV PUSH (09:41)
[2023-12-27] MEDS: QUEtiapine FUMARATE 25 MG TABLET PO (09:41)
[2023-12-27] MEDS: PRAVASTATIN SODIUM 20 MG TABLET PO (09:41)
[2023-12-27] MEDS: CITALOPRAM HYDROBROMIDE 10 MG TABLET PO (09:41)
[2023-12-27] MEDS: ACETAMINOPHEN 325 MG TABLET 650 MG PO (11:48)
[2023-12-27 14:20] VITALS: BP 112/56; PULSE 87; RESP 12; TEMP 36.5; O2SAT 97
--- NOTE | 2023-12-27 17:36 | WPDPN ---
Progress Note: A&P Assessment and Plan (1) Colonic mass: Code(s): K63.89 - Other specified diseases of intestine Status: Acute Assessment and Plan: Continue nutrition. No obstructive symptoms. Maybe start TPN if needed. Expect exp lap and resection of large colonic mass sometime next week. Subjective Date/time seen: 12/27/23 17:36 Interval history: Pt without acute clinical changes. Eating well, sitting up in chair today. No abd pain. No nausea. Exam GI: Other: Abd soft, large palp nontender mass epigastric and LUQ abd. No skin changes. No ventral hernias. Objective Data Vital Signs Vital Signs: Vital Signs - 24 hr 12/26/23 20:20 12/27/23 04:26 12/26/23 21:50 Temperature 37.0 C 36.6 C Pulse Rate 78 73 Respiratory Rate 16 16 Blood Pressure 114/70 122/56 L Pulse Oximetry 97 95 97 Oxygen Delivery Room Air 12/27/23 08:00 12/27/23 14:20 Temperature 36.5 C Pulse Rate 87 Respiratory Rate 12 Blood Pressure 112/56 L Pulse Oximetry 97 Oxygen Delivery Room Air Intake/Output Intake/Output: Intake & Output 12/24/23 12/25/23 12/26/23 12/27/23 23:59 23:59 23:59 23:59 Intake Total 2803.6 3260 1850 965 Output Total 3450 3000 2875 1999 [facility] -646.4 260 -1025 -1035 Meds/Results Medications: Active Medications Generic Name Dose Route Start Last Admin Trade Name Freq PRN Reason Stop Dose Admin Acetaminophen 650 mg 12/22/23 20:09 12/27/23 11:48 Acetaminophen 325 Mg Tablet PO 650 mg Q4H PRN Administration Mild Pain (1-3) or Fever Albuterol/Ipratropium 3 ml 12/23/23 08:49 Ipratropium 0.5 Mg/Albuterol Sulfate 2.5 Mg Ampul.Neb 3 Ml INHALATION Q6HRT PRN Wheezing or shortness of breath Citalopram Hydrobromide 10 mg 12/24/23 09:00 12/27/23 09:41 Citalopram Hydrobromide 10 Mg Tablet PO 10 mg QAM AQUILES Administration Heparin Sodium (Porcine) 5,000 units 12/23/23 06:00 12/27/23 14:46 Heparin Sodium 5,000 Units/Ml Vial SUB-Q 5,000 units Q8HR AQUILES Administration Sodium Chloride 1,000 mls @ 100 mls/hr 12/25/23 00:00 12/27/23 11:50 Normal Saline Iv IV CONT Not Given .Q10H AQUILES Ondansetron HCl 4 mg 12/22/23 20:09 12/26/23 08:13 Ondansetron Inj 4 Mg/2 Ml Vial IV PUSH 4 mg Q4H PRN Administration Nausea Pantoprazole Sodium 40 mg 12/23/23 09:00 12/27/23 09:41 Pantoprazole Sodium Iv 40 Mg Vial IV PUSH 40 mg QAM AQUILES Administration Pravastatin Sodium 20 mg 12/24/23 09:00 12/27/23 09:41 Pravastatin Sodium 20 Mg Tablet PO 20 mg DAILY AQUILES Administration Quetiapine Fumarate 25 mg 12/24/23 09:00 12/27/23 09:41 Quetiapine Fumarate 25 Mg Tablet PO 25 mg QAM AQUILES Administration Quetiapine Fumarate 400 mg 12/24/23 21:00 12/26/23 20:36 Quetiapine Fumarate 100 Mg Tablet PO 400 mg HS AQUILES Administration Sodium Chloride 10 ml 12/24/23 14:00 12/27/23 14:46 Central Line Flush IV PUSH 10 ml Q8HR AQUILES Administration Sodium Chloride 20 ml 12/24/23 07:53 Central Line Flush IV PUSH PRN PRN after blood draws Thiamine HCl 100 mg 12/23/23 09:00 12/27/23 09:41 Thiamine Hcl 200 Mg/2 Ml Vial IV PUSH 100 mg DAILY AQUILES Administration Radiology Results: ITS Impressions Head CT 12/22/23 14:09 IMPRESSION: 1. Normal brain. Hip/Pelvis X-Ray 12/22/23 14:11 IMPRESSION: 1. Mild osteoarthritis of the hips. Abdomen/Pelvis CT 12/22/23 14:16 IMPRESSION: 1. 17.0 cm mass of the transverse colon, consistent with primary malignancy. Chest X-Ray 12/23/23 06:03 Impression: Support line in place, as above. Clear lungs. Labs Labs: Laboratory Results - last 24 hr 12/27/23 05:13 WBC 8.2 RBC 4.02 L Hgb 10.5 L Hct 33.5 L MCV 83.3 MCH 26.1 MCHC 31.3 L RDW 16.5 H Plt Count 186 MPV 8.6 Sodium 134 L Potassium 3.5 Chloride 102 Carbon Dioxide 32 H Anion Gap 0 L BUN 8 L Creatin
--- NOTE | 2023-12-27 18:08 | PM.IMPN ---
Progress Note: A&P Assessment and Plan (1) Colonic mass: Code(s): K63.89 - Other specified diseases of intestine Status: Acute Assessment and Plan: Exploratory lap and resection planned for the week of 12/27 (2) Protein calorie malnutrition: Code(s): E46 - Unspecified protein-calorie malnutrition Status: Acute Assessment and Plan: Add Ensure Compact (3) Iron deficiency anemia: Code(s): D50.9 - Iron deficiency anemia, unspecified Status: Acute Assessment and Plan: 12/26 Hgb 10.5 (4) COPD (chronic obstructive pulmonary disease): Code(s): J44.9 - Chronic obstructive pulmonary disease, unspecified Status: Acute Assessment and Plan: Clinically stable (5) Chronic alcohol abuse: Code(s): F10.10 - Alcohol abuse, uncomplicated Status: Acute Assessment and Plan: Abstaining (6) Septic shock: Code(s): A41.9 - Sepsis, unspecified organism; R65.21 - Severe sepsis with septic shock Status: Acute Assessment and Plan: Presented 12/21 with hypothermia, hypotension, tachycardia, altered mental status, leukocytosis Resolved Subjective Date/time seen: 12/27/23 18:08 Interval history: Only complaint is left lower quadrant discomfort. Aching. Somewhat positional. Denied chest pain or shortness of breath. Denied bleeding. Denied urinary difficulties. Appetite is improved. Understands that he has a large hole left colonic mass that will require resection sometime in the next week. Review of Systems Review of Systems: All systems reviewed & are unremarkable except as noted in HPI and below Exam Narrative: HEENT: PERRL, sclerae nonicteric, pharyngeal mucosa pink and intact NECK: No JVD. CHEST: Clear to auscultation. Normal effort. HEART: NL S1/S2, regular, no murmur ABDOMEN: BS+, soft, TENDER LEFT LOWER QUADRANT WITHOUT GUARDING OR REBOUND, no bruits. EXTREMITIES: No cyanosis, edema, or clubbing NEUROLOGIC: CN intact and symmetric to inspection. MUSCULOSKELETAL: Tone and strength symmetric. PSYCH: Alert. Oriented to person, place, and time. Objective Data Vital Signs Vital Signs: Vital Signs - 24 hr 12/26/23 20:20 12/27/23 04:26 12/26/23 21:50 Temperature 98.6 F 97.9 F Pulse Rate 78 73 Respiratory Rate 16 16 Blood Pressure 114/70 122/56 L Pulse Oximetry 97 95 97 Oxygen Delivery Room Air 12/27/23 08:00 12/27/23 14:20 Temperature 97.7 F Pulse Rate 87 Respiratory Rate 12 Blood Pressure 112/56 L Pulse Oximetry 97 Oxygen Delivery Room Air Intake/Output Intake/Output: Intake & Output 12/24/23 12/25/23 12/26/23 12/27/23 23:59 23:59 23:59 23:59 Intake Total 2803.6 3260 1850 965 Output Total 3450 3000 2875 1999 [facility] -646.4 260 -0816 -5413 Meds/Results Medications: Active Medications Generic Name Dose Route Start Last Admin Trade Name Freq PRN Reason Stop Dose Admin Acetaminophen 650 mg 12/22/23 20:09 12/27/23 11:48 Acetaminophen 325 Mg Tablet PO 650 mg Q4H PRN Administration Mild Pain (1-3) or Fever Albuterol/Ipratropium 3 ml 12/23/23 08:49 Ipratropium 0.5 Mg/Albuterol Sulfate 2.5 Mg Ampul.Neb 3 Ml INHALATION Q6HRT PRN Wheezing or shortness of breath Citalopram Hydrobromide 10 mg 12/24/23 09:00 12/27/23 09:41 Citalopram Hydrobromide 10 Mg Tablet PO 10 mg QAM AQUILES Administration Heparin Sodium (Porcine) 5,000 units 12/23/23 06:00 12/27/23 14:46 Heparin Sodium 5,000 Units/Ml Vial SUB-Q 5,000 units Q8HR AQUILES Administration Sodium Chloride 1,000 mls @ 100 mls/hr 12/25/23 00:00 12/27/23 11:50 Normal Saline Iv IV CONT Not Given .Q10H AQUILES Ondansetron HCl 4 mg 12/22/23 20:09 12/26/23 08:13 Ondansetron Inj 4 Mg/2 Ml Vial IV PUSH 4 mg Q4H PRN Administration Nausea Pantoprazole Sodium 40 mg 12/23/23 09:00 12/27/23 09:41 Pantoprazole Sodium Iv 40 Mg Vial IV PUSH 40 mg QAM AQUILES
--- NOTE | 2023-12-27 18:23 | WPDANESPN ---
Anes - Prog Note Post-Op Date/Time: 12/27/23 18:23 Cardiovascular status: normal Respiratory status: normal Airway patency: baseline Mental status: baseline Post-Op hydration status: normal Vital Signs: Last Vital Signs Temp 36.5 C 12/27/23 14:20 Pulse 87 12/27/23 14:20 Resp 12 12/27/23 14:20 BP 112/56 L 12/27/23 14:20 Pulse Ox 97 12/27/23 14:20 O2 Del Method Room Air 12/27/23 08:00 Pain Score (VAS): 0 I/O: Intake & Output 12/27/23 12/27/23 12/27/23 07:59 15:59 23:59 Intake Total 965 Output Total 1550 450 Balance -1550 515 Laboratory Tests 12/27/23 05:13 12/27/23 05:13 12/27/23 05:13 WBC 8.2 RBC 4.02 L Hgb 10.5 L Hct 33.5 L MCV 83.3 MCH 26.1 MCHC 31.3 L RDW 16.5 H Plt Count 186 MPV 8.6 Sodium 134 L Potassium 3.5 Chloride 102 Carbon Dioxide 32 H Anion Gap 0 L BUN 8 L Creatinine 0.50 L Estim Creat Clear Calc 92 Estimated GFR > 60 Glucose 103 Calcium 8.1 L Phosphorus 2.6 Magnesium 2.3 Total Bilirubin 0.6 AST 42 ALT 26 Alkaline Phosphatase 103 Total Protein 5.0 L Albumin 2.6 L Post-procedural complaints: none Patient Feedback: Patient satisfied with anesthetic care.
[2023-12-27] MEDS: QUEtiapine FUMARATE 100 MG TABLET 400 MG PO (21:26)
[2023-12-27 21:29] VITALS: BP 135/73; PULSE 79; RESP 16; TEMP 37.6; O2SAT 95
[2023-12-28 04:54] VITALS: BP 117/72; PULSE 83; RESP 16; TEMP 36.3; O2SAT 96
[2023-12-28] MEDS: SODIUM CHLORIDE 0.9% IV 1,000 ML 100 ML IV CONT ×2 (05:42→15:58)
[2023-12-28] MEDS: CENTRAL LINE FLUSH 10 ML IV PUSH ×3 (05:43→22:00)
[2023-12-28 05:45] LABS: Hematocrit 31.9 % (42.0-52.0); Mean Corpuscular HGB Conc 31.3 g/dl (32-36); Mean Corpuscular Hemoglobin 26.3 pg (26-34); Mean Corpuscular Volume 83.9 fl (80-100); Mean Platelet Volume 9.2 fl (7.4-10.4); Platelet Count Result 177 k/mm3 (150-375); Red Cell Distribution Width 16.7 % (11.5-14.5); White Blood Count 8.3 K/mm3 (4.5-10.0)
[2023-12-28 05:55] LABS: Alanine Aminotransferase 20 U/L (6-50); Albumin Level 2.5 g/dL (3.5-5.1); Alkaline Phosphatase 108 U/L (38-126); Anion Gap -1 mmol/L (4-12); Aspartate Amino Transferase 25 U/L (17-59); Bilirubin,Total 0.5 mg/dL (0.2-1.3); Blood Urea Nitrogen 11 mg/dL (9-20); Carbon Dioxide 32 mmol/L (22-30); Chloride 102 mmol/L (98-107); Estimated CRCL calculation 122 ml/min; Estimated Glomerular Filt Rate > 60; Glucose 116 mg/dL (65-110); Potassium 3.3 mmol/L (3.4-5.0); Sodium 133 mmol/L (137-145)
[2023-12-28] MEDS: QUEtiapine FUMARATE 25 MG TABLET PO (09:23)
[2023-12-28] MEDS: THIAMINE HCL 200 MG/2 ML VIAL 100 MG IV PUSH (09:23)
[2023-12-28] MEDS: CITALOPRAM HYDROBROMIDE 10 MG TABLET PO (09:23)
[2023-12-28] MEDS: PRAVASTATIN SODIUM 20 MG TABLET PO (09:23)
[2023-12-28] MEDS: PANTOPRAZOLE SODIUM IV 40 MG VIAL IV PUSH (09:23)
[2023-12-28] MEDS: POTASSIUM CHLORIDE 20 MEQ ER TABLET 40 MEQ PO (09:23)
[2023-12-28] MEDS: POTASSIUM CHLORIDE 20 MEQ PACKET (FOR LIQUID) 40 MEQ PO (12:13)
[2023-12-28 13:55] VITALS: BP 128/65; PULSE 86; RESP 18; TEMP 36.5; O2SAT 96
--- NOTE | 2023-12-28 15:54 | PM.IMPN ---
Progress Note: A&P Assessment and Plan (1) Colonic mass: Code(s): K63.89 - Other specified diseases of intestine Status: Acute Assessment and Plan: Exploratory lap and resection planned for the week of 12/27 (2) Protein calorie malnutrition: Code(s): E46 - Unspecified protein-calorie malnutrition Status: Acute Assessment and Plan: 12/26 added Ensure Compact (3) Iron deficiency anemia: Code(s): D50.9 - Iron deficiency anemia, unspecified Status: Acute Assessment and Plan: 12/26 Hgb 10.5, 12/27 10.0 (4) Hypokalemia: Code(s): E87.6 - Hypokalemia Status: Acute Assessment and Plan: 12/27 3.3, PO KCl ordered (5) COPD (chronic obstructive pulmonary disease): Code(s): J44.9 - Chronic obstructive pulmonary disease, unspecified Status: Acute Assessment and Plan: Clinically stable (6) Chronic alcohol abuse: Code(s): F10.10 - Alcohol abuse, uncomplicated Status: Acute Assessment and Plan: Abstaining (7) Septic shock: Code(s): A41.9 - Sepsis, unspecified organism; R65.21 - Severe sepsis with septic shock Status: Acute Assessment and Plan: Presented 12/21 with hypothermia, hypotension, tachycardia, altered mental status, leukocytosis Resolved Subjective Date/time seen: 12/28/23 15:54 Interval history: Only complaint is left lower quadrant discomfort. Aching. Somewhat positional. Worse after eating. Denied chest pain or shortness of breath. Denied bleeding. Denied urinary difficulties. Appetite is improved. Understands that he has a large left colonic mass that will require resection sometime in the next week. Review of Systems Review of Systems: All systems reviewed & are unremarkable except as noted in HPI and below Exam Narrative: HEENT: PERRL, sclerae nonicteric, pharyngeal mucosa pink and intact NECK: No JVD. CHEST: Clear to auscultation. Normal effort. HEART: NL S1/S2, regular, no murmur ABDOMEN: BS+, soft, TENDER LEFT LOWER QUADRANT WITHOUT GUARDING OR REBOUND, LARGE LLQ MASS PALPABLE, no bruits. EXTREMITIES: No cyanosis, edema, or clubbing NEUROLOGIC: CN intact and symmetric to inspection. MUSCULOSKELETAL: Tone and strength symmetric. PSYCH: Alert. Oriented to person, place, and time. Objective Data Vital Signs Vital Signs: Vital Signs - 24 hr 12/27/23 21:29 12/28/23 04:54 12/28/23 08:00 Temperature 99.6 F 97.4 F L Pulse Rate 79 83 Respiratory Rate 16 16 Blood Pressure 135/73 117/72 Pulse Oximetry 95 96 Oxygen Delivery Room Air 12/28/23 13:55 Temperature 97.7 F Pulse Rate 86 Respiratory Rate 18 Blood Pressure 128/65 Pulse Oximetry 96 Oxygen Delivery Intake/Output Intake/Output: Intake & Output 12/25/23 12/26/23 12/27/23 12/28/23 23:59 23:59 23:59 23:59 Intake Total 3260 1850 1965 1036.7 Output Total 3000 2875 2700 1150 Balance 260 -1025 -735 -113.3 Meds/Results Medications: Active Medications Generic Name Dose Route Start Last Admin Trade Name Freq PRN Reason Stop Dose Admin Acetaminophen 650 mg 12/22/23 20:09 12/27/23 11:48 Acetaminophen 325 Mg Tablet PO 650 mg Q4H PRN Administration Mild Pain (1-3) or Fever Albuterol/Ipratropium 3 ml 12/23/23 08:49 Ipratropium 0.5 Mg/Albuterol Sulfate 2.5 Mg Ampul.Neb 3 Ml INHALATION Q6HRT PRN Wheezing or shortness of breath Citalopram Hydrobromide 10 mg 12/24/23 09:00 12/28/23 09:23 Citalopram Hydrobromide 10 Mg Tablet PO 10 mg QAM AQUILES Administration Sodium Chloride 1,000 mls @ 100 mls/hr 12/25/23 00:00 12/28/23 05:42 Normal Saline Iv IV CONT 100 mls/hr .Q10H AQUILES Administration Ondansetron HCl 4 mg 12/22/23 20:09 12/26/23 08:13 Ondansetron Inj 4 Mg/2 Ml Vial IV PUSH 4 mg Q4H PRN Administration Nausea Pantoprazole Sodium 40 mg 12/23/23 09:00 12/28/23 09:23 Pantoprazole Sodium Iv 40 Mg Vial IV PUSH 40 mg
[2023-12-28 20:11] VITALS: BP 124/68; PULSE 88; RESP 16; TEMP 36.8; O2SAT 96
[2023-12-28] MEDS: QUEtiapine FUMARATE 100 MG TABLET 400 MG PO (20:29)
[2023-12-29 04:17] VITALS: BP 122/66; PULSE 89; RESP 16; TEMP 36.2; O2SAT 93
[2023-12-29 06:14] LABS: Anion Gap 1 mmol/L (4-12); Blood Urea Nitrogen 11 mg/dL (9-20); Calcium 8.7 mg/dL (8.4-10.2); Carbon Dioxide 30 mmol/L (22-30); Chloride 100 mmol/L (98-107); Estimated CRCL calculation 97 ml/min; Estimated Glomerular Filt Rate > 60; Glucose 102 mg/dL (65-110); Potassium 4.1 mmol/L (3.4-5.0); Sodium 131 mmol/L (137-145)
[2023-12-29 06:23] LABS: Prealbumin 5.8 mg/dL (17.6-36.0)
[2023-12-29 08:31] LABS: Transferrin < 80 mg/dL (206-381)
[2023-12-29] MEDS: CENTRAL LINE FLUSH 10 ML IV PUSH ×3 (09:11→22:00)
[2023-12-29] MEDS: CITALOPRAM HYDROBROMIDE 10 MG TABLET PO (09:11)
[2023-12-29] MEDS: PRAVASTATIN SODIUM 20 MG TABLET PO (09:11)
[2023-12-29] MEDS: QUEtiapine FUMARATE 25 MG TABLET PO (09:11)
[2023-12-29] MEDS: PANTOPRAZOLE SODIUM IV 40 MG VIAL IV PUSH (09:12)
[2023-12-29] MEDS: THIAMINE HCL 200 MG/2 ML VIAL 100 MG IV PUSH (10:10)
--- NOTE | 2023-12-29 11:46 | PCNFU ---
Nutrition Follow-Up Complete: Severe Protein Calorie Malnutrition as related to inadequate protein energy intake with increased protein-energy needs in setting of chronic disease (cancer) as evidenced by minimal oral intake for > 1-2 months, significant weight loss of 28% (49 ibs) in 2 months: severe muscle wasting (temporalis, clavicle region) and severe subcutaneous fat loss (orbital fat pads, ribs) Goal:Meet estimated nutritional needs Pt current nutrition is Low fiber, Ensue Enlive BID. Nutrition recommendation: continue with current plan of care Last recorded weight is 65.3 kg. Bowel Motility: +BM 4/6 Labs Reviewed: Hgb:10.0, HCt:31.9, NA:131, Cr:0.5 Meds Noted: heparin, protonix Skin: no skin issues noted Additional Notes: Pt continues on a low fiber diet, intake 50-100% of meals. Ensure Enlive BID in place. Encourage po intake of meals and supplements Will monitor weight, labs, skin, meds, oral intake every 5 days.
[2023-12-29 14:00] VITALS: BP 120/77; PULSE 88; RESP 22; TEMP 36.7; O2SAT 98
--- NOTE | 2023-12-29 14:01 | PM.PNGS ---
Progress Note: A&P Assessment and Plan (1) Colonic mass: Code(s): K63.89 - Other specified diseases of intestine Status: Acute Assessment and Plan: Still no obstructive symptoms. Biopsies showed adenocarcinoma. Nutritional markers are all extremely low. Given his poor protein nutritional status, the patient remains a overall very poor surgical candidate with a high risk for healing complications including anastomotic leak. Will order CT chest for further workup of any metastatic disease. Consult oncology. Plan I have discussed the patient's case and plan of care with Dr. Sher. Subjective Subjective Date/Time Seen: 12/29/23 14:01 Patient reports: no new complaints, tolerating a regular diet, flatus and bowel movement Interval history: No acute changes over the weekend. Denies any nausea or vomiting. Bowels are moving. Has some mild LUQ pain but unchanged. Exam Const: General: cachectic; No acute distress Orientation/consciousness: patient oriented x3 GI: Inspection: non-distended GI Palp: Yes Soft to palpation, Yes Tenderness to palpation present (GI) (mild TTP in LUQ over the mass), No Guarding due to palpation present (GI), Yes Palpable mass present (palpable mass in LUQ unchanged) and No Rebound tenderness present Auscultation: normal bowel sounds Objective Data Vital Signs Vital Signs: Vital Signs - 24 hr 12/28/23 20:11 12/29/23 04:17 12/29/23 08:00 Temperature 98.2 F 97.1 F L Pulse Rate 88 89 Respiratory Rate 16 16 Blood Pressure 124/68 122/66 Pulse Oximetry 96 93 Oxygen Delivery Room Air Intake/Output Intake/Output: Intake & Output 12/26/23 12/27/23 12/28/23 12/29/23 23:59 23:59 23:59 23:59 Intake Total 1850 1965 2396.7 238 Output Total 2875 2700 3350 1500 Balance -1025 -735 -953.3 -1262 Meds/Results Medications: Active Medications Generic Name Dose Route Start Last Admin Trade Name Freq PRN Reason Stop Dose Admin Acetaminophen 650 mg 12/22/23 20:09 12/27/23 11:48 Acetaminophen 325 Mg Tablet PO 650 mg Q4H PRN Administration Mild Pain (1-3) or Fever Albuterol/Ipratropium 3 ml 12/23/23 08:49 Ipratropium 0.5 Mg/Albuterol Sulfate 2.5 Mg Ampul.Neb 3 Ml INHALATION Q6HRT PRN Wheezing or shortness of breath Citalopram Hydrobromide 10 mg 12/24/23 09:00 12/29/23 09:11 Citalopram Hydrobromide 10 Mg Tablet PO 10 mg QAM AQUILES Administration Sodium Chloride 1,000 mls @ 100 mls/hr 12/25/23 00:00 12/28/23 15:58 Normal Saline Iv IV CONT 100 mls/hr .Q10H AQUILES Administration Ondansetron HCl 4 mg 12/22/23 20:09 12/26/23 08:13 Ondansetron Inj 4 Mg/2 Ml Vial IV PUSH 4 mg Q4H PRN Administration Nausea Pantoprazole Sodium 40 mg 12/23/23 09:00 12/29/23 09:12 Pantoprazole Sodium Iv 40 Mg Vial IV PUSH 40 mg QAM AQUILES Administration Pravastatin Sodium 20 mg 12/24/23 09:00 12/29/23 09:11 Pravastatin Sodium 20 Mg Tablet PO 20 mg DAILY AQUILES Administration Quetiapine Fumarate 25 mg 12/24/23 09:00 12/29/23 09:11 Quetiapine Fumarate 25 Mg Tablet PO 25 mg QAM AQUILES Administration Quetiapine Fumarate 400 mg 12/24/23 21:00 12/28/23 20:29 Quetiapine Fumarate 100 Mg Tablet PO 400 mg HS AQUILES Administration Sodium Chloride 10 ml 12/24/23 14:00 12/29/23 09:11 Central Line Flush IV PUSH 10 ml Q8HR AQUILES Administration Sodium Chloride 20 ml 12/24/23 07:53 Central Line Flush IV PUSH PRN PRN after blood draws Thiamine HCl 100 mg 12/23/23 09:00 12/29/23 10:10 Thiamine Hcl 200 Mg/2 Ml Vial IV PUSH 100 mg DAILY AQUILES Administration Radiology Results: ITS Impressions Head CT 12/22/23 14:09 IMPRESSION: 1. Normal brain. Hip/Pelvis X-Ray 12/22/23 14:11 IMPRESSION: 1. Mild osteoarthritis of the hips. Abdomen/Pelvis CT 12/22/23 14:16 IMPRESSION: 1. 17.0 cm mass of the transverse colon, consistent with primary malignancy. Ch
[2023-12-29] MEDS: SODIUM CHLORIDE 0.9% IV 1,000 ML 100 ML IV CONT (17:05)
[2023-12-29 20:27] VITALS: BP 109/54; PULSE 88; RESP 16; TEMP 38; O2SAT 94
[2023-12-29 20:42] VITALS: TEMP 38
[2023-12-29] MEDS: QUEtiapine FUMARATE 100 MG TABLET 400 MG PO (20:42)
[2023-12-29] MEDS: ACETAMINOPHEN 325 MG TABLET 650 MG PO (20:42)
--- NOTE | 2023-12-29 21:08 | PM.IMPN ---
Progress Note: A&P Assessment and Plan (1) Hypokalemia: Code(s): E87.6 - Hypokalemia Status: Acute (2) Protein calorie malnutrition: Code(s): E46 - Unspecified protein-calorie malnutrition Status: Acute (3) Weight loss: Code(s): R63.4 - Abnormal weight loss Status: Acute (4) Iron deficiency anemia: Code(s): D50.9 - Iron deficiency anemia, unspecified Status: Acute Plan #primary adenocarcinoma of colon -biopsy diagnosis -consult to oncology for staging -general surgery consulted for possible resection: patient remains high risk with poor nutritional status, surgeon Dr. Sher #protein calorie malnutrition -ensure added to meals -weight loss -possibly starting TPN -IVF #septic shock on presentation -septic shock on 12/21, has resovled -completed ABx #Chronic conditions- non-essential home meds have been held -COPD -depression: celexa, seroquel -neuropathy: gabapentin -BPH? doxazosin -GERD: protonix -HLD: statin -insomnia: trazodone Diet: bland low fiber diet DVT ppx: if no surgery may need to start DVT ppx, currently not on any chemoprophylaxis, concern for bleeding carcinoma? GI ppx: protonix Code status: DNR Disposition: pending cancer work up and possible resection Subjective Date/time seen: 12/29/23 21:08 Interval history: Patient seen and examined. Patient has colon mass adenocarcinoma. Surgery team is considering oncology and further staging before resection. Patient appears to be doing ok. He denies fever, chills, n/v/d. He appears to still have bowel movements Review of Systems Review of Systems: 10 point ROS complete, negative other than what is specified in HPI. Exam Narrative: - GENERAL: Pleasant frail mail in no acute distress. muscle wasting present - EYES: EOMI. Anicteric. - HENT: Moist mucous membranes. - LUNGS: Clear to auscultation bilaterally, no wheezing, rhonchi, or rales. - CARDIOVASCULAR: Regular rate and rhythm. No murmur. No JVD. TLC right IJ - ABDOMEN: Soft, distended, not too tender, he does have LUQ pain on palpation - EXTREMITIES: No edema. Peripheral pulses 2+. Non-tender. - NEUROLOGIC: No focal neurological deficits. CN II-XII grossly intact. - PSYCHIATRIC: Awake, Alert and oriented x 3. Appropriate mood and affect. - SKIN: No rashes or lesions. Warm. mepelix dressing over sacrum - LYMPH: No cervical lymphadenopathy. Objective Data Vital Signs Vital Signs: Vital Signs - 24 hr 12/29/23 04:17 12/29/23 08:00 12/29/23 14:00 Temperature 36.2 C L 36.7 C Pulse Rate 89 88 Respiratory Rate 16 22 H Blood Pressure 122/66 120/77 Pulse Oximetry 93 98 Oxygen Delivery Room Air 12/29/23 20:42 12/29/23 20:27 Temperature 38.0 C H 38.0 C H Pulse Rate 88 Respiratory Rate 16 Blood Pressure 109/54 L Pulse Oximetry 94 Oxygen Delivery Intake/Output Intake/Output: Intake & Output 12/26/23 12/27/23 12/28/23 12/29/23 23:59 23:59 23:59 23:59 Intake Total 1850 1965 2396.7 1460 Output Total 2875 2700 3350 2450 Balance -1025 -735 -953.3 -990 Meds/Results Medications: Active Medications Generic Name Dose Route Start Last Admin Trade Name Freq PRN Reason Stop Dose Admin Acetaminophen 650 mg 12/22/23 20:09 12/29/23 20:42 Acetaminophen 325 Mg Tablet PO 650 mg Q4H PRN Administration Mild Pain (1-3) or Fever Albuterol/Ipratropium 3 ml 12/23/23 08:49 Ipratropium 0.5 Mg/Albuterol Sulfate 2.5 Mg Ampul.Neb 3 Ml INHALATION Q6HRT PRN Wheezing or shortness of breath Citalopram Hydrobromide 10 mg 12/24/23 09:00 12/29/23 09:11 Citalopram Hydrobromide 10 Mg Tablet PO 10 mg QAM AQUILES Administration Sodium Chloride 1,000 mls @ 100 mls/hr 12/25/23 00:00 12/29/23 17:05 Normal Saline Iv IV CONT 100 mls/hr .Q10H AQUILES Administration Ondansetron HCl 4 mg 12/22/23 20:09 12/26/23 08:13 Ondansetron Inj 4 Mg/2 Ml Vial IV PUSH 4 mg Q4H PRN Administration
[2023-12-30 04:40] VITALS: BP 129/64; PULSE 95; RESP 18; TEMP 37.8; O2SAT 91
[2023-12-30 06:09] VITALS: TEMP 37.8
[2023-12-30] MEDS: ACETAMINOPHEN 325 MG TABLET 650 MG PO (06:09)
[2023-12-30] MEDS: SODIUM CHLORIDE 0.9% IV 1,000 ML 100 ML IV CONT ×2 (06:10→20:30)
[2023-12-30] MEDS: CENTRAL LINE FLUSH 10 ML IV PUSH ×3 (06:11→20:54)
[2023-12-30 06:41] LABS: Hematocrit 30.1 % (42.0-52.0); Hemoglobin 9.4 g/dL (14.0-18.0); Mean Corpuscular HGB Conc 31.2 g/dl (32-36); Mean Corpuscular Hemoglobin 26.5 pg (26-34); Mean Corpuscular Volume 84.8 fl (80-100); Mean Platelet Volume 8.8 fl (7.4-10.4); Platelet Count Result 215 k/mm3 (150-375); Red Blood Count 3.55 M/mm3 (4.6-6.20); Red Cell Distribution Width 17.5 % (11.5-14.5); White Blood Count 9.2 K/mm3 (4.5-10.0)
[2023-12-30 06:56] LABS: Alanine Aminotransferase 20 U/L (6-50); Albumin Level 2.7 g/dL (3.5-5.1); Alkaline Phosphatase 142 U/L (38-126); Anion Gap 2 mmol/L (4-12); Aspartate Amino Transferase 33 U/L (17-59); Bilirubin,Total 0.8 mg/dL (0.2-1.3); Blood Urea Nitrogen 10 mg/dL (9-20); Calcium 8.5 mg/dL (8.4-10.2); Carbon Dioxide 30 mmol/L (22-30); Chloride 101 mmol/L (98-107); Estimated CRCL calculation 120 ml/min; Estimated Glomerular Filt Rate > 60; Glucose 102 mg/dL (65-110); Potassium 3.9 mmol/L (3.4-5.0); Sodium 133 mmol/L (137-145)
[2023-12-30 07:05] VITALS: TEMP 37.2
[2023-12-30] MEDS: CITALOPRAM HYDROBROMIDE 10 MG TABLET PO (09:08)
[2023-12-30] MEDS: PANTOPRAZOLE SODIUM IV 40 MG VIAL IV PUSH (09:08)
[2023-12-30] MEDS: QUEtiapine FUMARATE 25 MG TABLET PO (09:08)
[2023-12-30] MEDS: THIAMINE HCL 200 MG/2 ML VIAL 100 MG IV PUSH (09:08)
[2023-12-30] MEDS: PRAVASTATIN SODIUM 20 MG TABLET PO (09:08)
--- NOTE | 2023-12-30 10:58 | PCPTNOTE ---
Patient declined PT stating he is not feeling well. Patient states he is having stomach problems. Patient requests PT return and attempt later today. PT will continue to follow per plan of care.
--- NOTE | 2023-12-30 12:40 | PC.NURSE ---
spoke to hospitalist about pt having fevers overnight. this rn inquired on removing galindo and/or IJ catheter with hospitalist. hospitalist stated that he will order blood cultures and to not pull galindo/IJ until he is able to speak to surgery. Hospitalist stated to look out for orders after blood cultures taken and he speaks with surgery to determine if they want him to pull any lines.
--- NOTE | 2023-12-30 12:55 | PDONCCN ---
HPI - Date of Consult Date/Time: 12/30/23 12:55 Requesting Physician: Zainab Greenberg DO Primary Care Provider: Helio Cheng, - Consult Narrative Reason for consult: Colon cancer Narrative: Mario Gomez Jr. is a 78 year old male with history of psychiatric disorder, COPD, GERD, BPH and history of smoking and drinking alcohol brought in from the [facility]. According to patient he has been seeing some blood in the stool for last 1 week duration prior to the admission. He has lost almost 30-40 lb weight in last several months duration. He denies any diarrhea and constipation. Patient mother also had colon cancer. Patient had CT scan abdomen and pelvis done that showed 17 cm mass of the transverse colon consistent with primary malignancy. Sigmoidoscopy done by Dr. Del Real showed malignant appearing transverse colon mass and biopsies were taken. Pathology came back positive for adenocarcinoma fallen. CT chest was performed that showed moderate bilateral pleural effusion with no evidence of metastatic disease. Labs showed hemoglobin of 7.7 now up to 9.4 after blood transfusion. CEA was elevated at 1070. Iron saturation was 13% serum iron was 19. B12 was 953. He remains tired and fatigued. Review of Systems - Review of Systems All systems reviewed & are unremarkable except as noted in HPI and bel - Neurologic Reports hearing normal [facility] Medical History: Medical History (Last Updated 12/24/23 @ 16:52 by Luis Eduardo Gloria MD) Alcohol abuse Arthritis COPD (chronic obstructive pulmonary disease) Iron deficiency anemia Major depressive disorder Tobacco abuse Weight loss Surgical History: Surgical History (Last Reviewed 12/23/23 @ 11:41 by FRED Garcia) No history of previous surgery Family History: Family History (Last Reviewed 12/23/23 @ 11:41 by FRED Garcia) Mother Cancer - Social History Social History: Social History (Last Reviewed 12/23/23 @ 11:41 by FRED Garcia) Alcohol Use: Alcohol intake: current Substance Use: Substance use: never Substance use type: does not use Others: Spiritual care concerns: No Smoking Status: Smoking status: Heavy tobacco smoker Tobacco type: cigarettes Smoking Pack-years: Smoking packs per day: 1 Smoking cigarettes per day: 20.0 Years smoked: 60 Smoking pack-years: 60.00 Social Determinants of Health: Do You Feel Safe in your Home?: Yes Has the Lack of Transportation Kept You From Medical Appointments or From Getting Medications?: No Within the Past 12 Months, Were You Worried Whether Your Food Would Run Out Before You Got Money to Buy More?: Never True What is Your Housing Situation Today?: I Do Not Have Housing Are You Worried That in the Next 2 Months, You May Not Have Your Own Housing to Live In?: No Do You Have Trouble Paying Your Heating Or Electricity Bill?: No Do You Have Trouble Paying For Medicines?: No Are You Currently Unemployed and Looking for Work?: No Highest Level of Education Completed: Grade School Do You Have Trouble With Childcare or the Care of a Family Member?: No Exam - Vital Signs Vital Signs - 24 hr 12/29/23 14:00 12/29/23 20:42 12/29/23 20:27 Temperature 36.7 C 38.0 C H 38.0 C H Pulse Rate 88 88 Respiratory Rate 22 H 16 Blood Pressure 120/77 109/54 L Pulse Oximetry 98 94 Oxygen Delivery 12/30/23 04:40 12/30/23 06:09 12/30/23 08:00 Temperature 37.8 C H 37.8 C H Pulse Rate 95 Respiratory Rate 18 Blood Pressure 129/64 Pulse Oximetry 91 Oxygen Delivery Room Air 12/30/23 07:05 Temperature 37.2 C Pulse Rate Respiratory Rate Blood Pressure Pulse Oximetry Oxygen Delivery - Exam HEENT: EOMI, PERRLA, mucous membranes moist and pink Neck: supple Lungs: clear to auscultation, normal air movement Heart:
[2023-12-30 14:00] VITALS: BP 127/73; PULSE 91; RESP 16; TEMP 36.9; O2SAT 97
--- NOTE | 2023-12-30 15:01 | PM.IMPN ---
Progress Note: A&P Assessment and Plan (1) Hypokalemia: Code(s): E87.6 - Hypokalemia Status: Acute (2) Protein calorie malnutrition: Code(s): E46 - Unspecified protein-calorie malnutrition Status: Acute (3) Iron deficiency anemia: Code(s): D50.9 - Iron deficiency anemia, unspecified Status: Acute (4) Weight loss: Code(s): R63.4 - Abnormal weight loss Status: Acute (5) Colonic mass: Code(s): K63.89 - Other specified diseases of intestine Status: Acute (6) Malnutrition related to chronic disease: Code(s): E46 - Unspecified protein-calorie malnutrition Status: Acute (7) Electrolyte abnormality: Code(s): E87.8 - Other disorders of electrolyte and fluid balance, not elsewhere classified Status: Acute Plan #primary adenocarcinoma of transverse colon -biopsy from sigmoidoscopy, tissue shows adenocarcinoma. CT abdomen pelvis inches does not show metastasis. primary lesion 17 cm mass -CEA 1070, will need outpatient PET scan -consult to oncology: likely localized cancer, no sign of metastasis on imaging -general surgery consulted for possible resection: patient remains high risk with poor nutritional status, likely would follow up outpatient for surgery #severe protein calorie malnutrition # normocytic anemia -ensure added to meals -weight loss, muscle wasting, appears cachectic - malnutrition secondary to cancer -possibly starting TPN -IVF - iron deficiency anemia: Giving IV iron, will likely need to discharge on 325mg BID Fe #septic shock on presentation -septic shock on 12/21, has resolved -completed ABx #Chronic conditions- non-essential home meds have been held -COPD -depression: celexa, seroquel -neuropathy: gabapentin -BPH? doxazosin -GERD: protonix -HLD: statin -insomnia: trazodone Diet:?bland low fiber diet DVT ppx:?lovenox GI ppx:?protonix Code status: DNR Disposition: pending cancer work up and possible resection, may need SNF in the interim? Subjective Date/time seen: 12/30/23 15:01 Interval history: Patient seen and examined. Patient had a fever overnight T-max 101?. Will obtain repeat blood cultures today. We have your having still minimal p.o. intake has concerning the surgical team. Oncologist was consulted who believes patient has localized colon cancer with the adenocarcinoma of transverse colon based on biopsy results. the imaging is not concerning for metastasis CT chest and abdomen. Recommendations for outpatient PET scan. oncologist is getting IV iron to help with anemia and recommending iron supplementation. patient denies fever, chills, nausea vomiting, diarrhea, chest pain, shortness of breath. Review of Systems Review of Systems: 10 point ROS complete, negative other than what is specified in HPI. Exam Narrative: - GENERAL: Pleasant frail male in no acute distress. muscle wasting present - EYES: EOMI. Anicteric. - HENT: Moist mucous membranes. - LUNGS: Clear to auscultation bilaterally, no wheezing, rhonchi, or rales. - CARDIOVASCULAR: Regular rate and rhythm. No murmur. No JVD. TLC right IJ - ABDOMEN: Soft, distended, he does have LUQ pain on palpation, Palpable masses - : galindo catheter - EXTREMITIES: No edema. Peripheral pulses 2+. Non-tender. - NEUROLOGIC: No focal neurological deficits. CN II-XII grossly intact. - PSYCHIATRIC: Awake, Alert and oriented x 3. Appropriate mood and affect. - SKIN: No rashes or lesions. Warm. mepelix dressing over sacrum - LYMPH: No cervical lymphadenopathy. Objective Data Vital Signs Vital Signs: Vital Signs - 24 hr 12/29/23 20:42 12/29/23 20:27 12/30/23 04:40 Temperature 38.0 C H 38.0 C H 37.8 C H Pulse Rate 88 95 Respiratory Rate 16 18 Blood Pressure 109/54 L 129/64 Pulse Oximetry 94 91 Oxygen Delivery 12/30/23 06:09 12/30/23 08:00 12/30/23 07:05 Temperature 37.8 C H 37.2 C Pulse Rate Respiratory Rate Blood
--- NOTE | 2023-12-30 15:57 | PCPTNOTE ---
Attempted to see patient this afternoon for PT and patient declined stating he continues to not feel well. PT will continue to follow per plan of care.
--- NOTE | 2023-12-30 16:02 | PM.PNGS ---
Progress Note: A&P Assessment and Plan (1) Colonic mass: Code(s): K63.89 - Other specified diseases of intestine Status: Acute Assessment and Plan: Large nonobstructing colon mass with biopsies showing adenocarcinoma. Workup has shown no evidence of distant metastasis. Oncology consulted and recommendations noted. Patient is cachectic with severe calorie malnutrition. He is an extremely poor surgical candidate with high risks for healing complications including anastomotic leak. Discussed the case with Dr. Sher and the patient is not a surgical candidate at this time. I discussed options with the patient of either trying to improve his nutritional status and we could consider a colon resection as an outpatient if his status becomes more stable versus considering Hospice/palliative care. There is a possibility that he may not reach a stable nutritional status in the near future, which would prolong his surgery and he could ultimately have progression of his cancer. Both options were discussed in detail. The patient is aware of his options and wishes to attempt improving his nutrition and working towards possible surgery. Care coordination is working on SNF placement for the patient and I discussed the case with them to see if he would be a candidate for outpatient TPN given his nutritional status. This would give him the best opportunity to improve, while also using dietary supplements. Surgery will not be done on this hospitalization, and he can be discharged from our standpoint when medically stable. Even if he is unable to have TPN, we would recommend at least weekly labs including a CMP, prealbumin, and transferrin to monitor his nutritional status. He can follow-up with Dr. Sher as an outpatient once his nutritional status improves. Plan I have discussed the patient's case and plan of care with Dr. Sher. Subjective Subjective Date/Time Seen: 12/30/23 16:02 Patient reports: no new complaints, tolerating a regular diet, flatus and bowel movement Interval history: Patient with no specific complaints on my exam. He is eating well today and taking Ensure compact supplements twice daily. He had a low grade fever early this morning. Blood cx drawn. Oncology also saw patient and started iron. Exam Const: General: ill appearing chronically and cachectic; No acute distress GI: Inspection: non-distended GI Palp: Yes Soft to palpation, No Guarding due to palpation present (GI), Yes Palpable mass present (large palpable LUQ mass that is mildly tender) and No Rebound tenderness present Auscultation: normal bowel sounds Objective Data Vital Signs Vital Signs: Vital Signs - 24 hr 12/29/23 20:42 12/29/23 20:27 12/30/23 04:40 Temperature 100.4 F H 100.4 F H 100.1 F H Pulse Rate 88 95 Respiratory Rate 16 18 Blood Pressure 109/54 L 129/64 Pulse Oximetry 94 91 Oxygen Delivery 12/30/23 06:09 12/30/23 08:00 12/30/23 07:05 Temperature 100.1 F H 99.0 F Pulse Rate Respiratory Rate Blood Pressure Pulse Oximetry Oxygen Delivery Room Air 12/30/23 14:00 Temperature 98.5 F Pulse Rate 91 Respiratory Rate 16 Blood Pressure 127/73 Pulse Oximetry 97 Oxygen Delivery Intake/Output Intake/Output: Intake & Output 12/27/23 12/28/23 12/29/23 12/30/23 23:59 23:59 23:59 23:59 Intake Total 1965 2396.7 1460 1460 Output Total 2700 3350 2450 1750 Balance -735 -953.3 -990 -290 Meds/Results Medications: Active Medications Generic Name Dose Route Start Last Admin Trade Name Freq PRN Reason Stop Dose Admin Acetaminophen 650 mg 12/22/23 20:09 12/30/23 06:09 Acetaminophen 325 Mg Tablet PO 650 mg Q4H PRN Administration Mild Pain (1-3) or Fever Albuterol/Ipratropium 3 ml 12/23/23 08:49 Ipratropium 0.5 Mg/Albuterol Sulfate 2.5 Mg Ampul.Neb 3 Ml INHALATION Q6HRT PRN Wheezing or shortness of breath Citalopram Hydrobromide 10 mg 12/24/23 09:00 12/30/23 09:08
[2023-12-30] MEDS: QUEtiapine FUMARATE 100 MG TABLET 400 MG PO (20:50)
[2023-12-30 21:14] VITALS: BP 126/66; PULSE 91; RESP 24; TEMP 36.7; O2SAT 93
[2023-12-31 06:00] VITALS: BP 117/64; PULSE 87; RESP 20; TEMP 37; O2SAT 93
[2023-12-31 06:41] LABS: Basophils Absolute Auto 0.1 K/mm3 (0.0-0.1); Basophils Percent Auto 0.7 % (0.2-1.2); Eosinophils Absolute Auto 0.1 K/mm3 (0-0.3); Eosinophils Percent Auto 1.4 % (0-4.4); Hematocrit 28.3 % (42.0-52.0); Hemoglobin 8.7 g/dL (14.0-18.0); Immature Granulocyte Absolute 0.06 K/mm3 (0.00-0.031); Immature Granulocyte Percent A 0.6 % (0-0.5); Lymphocytes Percent Auto 12.6 % (18.3-44.2); Mean Corpuscular HGB Conc 30.7 g/dl (32-36); Mean Corpuscular Hemoglobin 26.1 pg (26-34); Mean Platelet Volume 8.5 fl (7.4-10.4); Monocytes Absolute Auto 1.1 K/mm3 (0.1-0.6); Monocytes Percent Auto 10.4 % (2.6-8.5); Neutrophils Absolute Auto 7.7 K/mm3 (1.3-6.7); Neutrophils Percent Auto 74.3 % (45.5-73.1); Platelet Count Result 209 k/mm3 (150-375); Red Blood Count 3.33 M/mm3 (4.6-6.20); Red Cell Distribution Width 17.7 % (11.5-14.5); White Blood Count 10.3 K/mm3 (4.5-10.0)
[2023-12-31 06:50] LABS: Alanine Aminotransferase 28 U/L (6-50); Albumin Level 2.7 g/dL (3.5-5.1); Alkaline Phosphatase 168 U/L (38-126); Anion Gap 0 mmol/L (4-12); Aspartate Amino Transferase 50 U/L (17-59); Bilirubin,Total 0.8 mg/dL (0.2-1.3); Blood Urea Nitrogen 8 mg/dL (9-20); Calcium 8.3 mg/dL (8.4-10.2); Carbon Dioxide 30 mmol/L (22-30); Chloride 101 mmol/L (98-107); Estimated CRCL calculation 116 ml/min; Estimated Glomerular Filt Rate > 60; Glucose 94 mg/dL (65-110); Potassium 3.8 mmol/L (3.4-5.0); Sodium 131 mmol/L (137-145)
[2023-12-31] MEDS: CENTRAL LINE FLUSH 10 ML IV PUSH ×2 (06:54→14:32)
[2023-12-31 08:00] VITALS: PULSE 91; RESP 16; O2SAT 90
[2023-12-31] MEDS: PANTOPRAZOLE SODIUM IV 40 MG VIAL IV PUSH (09:11)
[2023-12-31] MEDS: THIAMINE HCL 200 MG/2 ML VIAL 100 MG IV PUSH (09:11)
[2023-12-31] MEDS: ENOXAPARIN 40 MG/0.4 ML SYRINGE SUB-Q (09:11)
[2023-12-31] MEDS: PRAVASTATIN SODIUM 20 MG TABLET PO (09:13)
[2023-12-31] MEDS: QUEtiapine FUMARATE 25 MG TABLET PO (09:13)
[2023-12-31] MEDS: CITALOPRAM HYDROBROMIDE 10 MG TABLET PO (09:14)
[2023-12-31] MEDS: IRON SUCROSE COMPLEX 500 MG in SODIUM CHLORIDE 0.9% IV 250 ML 79 MG IVPB (09:51)
--- NOTE | 2023-12-31 12:41 | PM.IMPN ---
Progress Note: A&P Assessment and Plan (1) Hypokalemia: Code(s): E87.6 - Hypokalemia Status: Acute (2) Protein calorie malnutrition: Code(s): E46 - Unspecified protein-calorie malnutrition Status: Acute (3) Iron deficiency anemia: Code(s): D50.9 - Iron deficiency anemia, unspecified Status: Acute (4) Weight loss: Code(s): R63.4 - Abnormal weight loss Status: Acute (5) Colonic mass: Code(s): K63.89 - Other specified diseases of intestine Status: Acute (6) Malnutrition related to chronic disease: Code(s): E46 - Unspecified protein-calorie malnutrition Status: Acute (7) Electrolyte abnormality: Code(s): E87.8 - Other disorders of electrolyte and fluid balance, not elsewhere classified Status: Acute Plan #primary adenocarcinoma of transverse colon -biopsy from sigmoidoscopy, tissue shows adenocarcinoma. CT abdomen pelvis inches does not show metastasis. primary lesion 17 cm mass -CEA 1070, will need outpatient PET scan -consult to oncology: likely localized cancer, no sign of metastasis on imaging -general surgery consulted for possible resection: patient remains high risk with poor nutritional status, likely would follow up outpatient for surgery - plan for continuing nutritional supplementation and outpatient follow-up with surgery for planned outpatient colectomy in next few weeks -removing TLC and galindo #severe protein calorie malnutrition # normocytic anemia -ensure added to meals -weight loss, muscle wasting, appears cachectic - malnutrition secondary to cancer -possibly starting TPN -IVF - iron deficiency anemia: Giving IV iron, will likely need to discharge on 325mg BID Fe #septic shock on presentation -septic shock on 12/21, has resolved -completed ABx #Chronic conditions - restarting home meds -COPD -depression: celexa, seroquel -neuropathy: gabapentin -BPH? doxazosin -GERD: protonix -HLD: statin -insomnia: trazodone Diet:?bland low fiber diet DVT ppx:?lovenox GI ppx:?protonix Code status: DNR Disposition: SNF, will need close outpatient follow up with surgery for colectomy Subjective Date/time seen: 12/31/23 12:41 Interval history: Patient seen and examined. Will remove central line Galindo catheter. Continue male supplements to improve nutritional status. Patient will likely need placement to [facility] facility for ongoing management protein calorie malnutrition and therapy for rehab. he will need to have a close outpatient follow-up with surgery for colectomy. patient denies fever, chills, nausea, vomiting, diarrhea , abdominal pain. Review of Systems Review of Systems: 10 point ROS complete, negative other than what is specified in HPI. Exam Narrative: - GENERAL: Pleasant frail male in no acute distress. muscle wasting present - EYES: EOMI. Anicteric. - HENT: Moist mucous membranes. - LUNGS: Clear to auscultation bilaterally, no wheezing, rhonchi, or rales. - CARDIOVASCULAR: Regular rate and rhythm. No murmur. No JVD. TLC right IJ - ABDOMEN: Soft, distended, he does have LUQ pain on palpation, Palpable masses - : galindo catheter in place, red tinged urine - EXTREMITIES: No edema. Peripheral pulses 2+. Non-tender. - NEUROLOGIC: No focal neurological deficits. CN II-XII grossly intact. - PSYCHIATRIC: Awake, Alert and oriented x 3. Appropriate mood and affect. - SKIN: No rashes or lesions. Warm. mepelix dressing over sacrum - LYMPH: No cervical lymphadenopathy. Objective Data Vital Signs Vital Signs: Vital Signs - 24 hr 12/30/23 14:00 12/30/23 21:14 12/31/23 06:00 Temperature 36.9 C 36.7 C 37.0 C Pulse Rate 91 91 87 Respiratory Rate 16 24 H 20 Blood Pressure 127/73 126/66 117/64 Pulse Oximetry 97 93 93 Intake/Output Intake/Output: Intake & Output 12/28/23 12/29/23 12/30/23 12/31/23 23:59 23:59 23:59 23:59 Intake Total 2396.7 1460 2580 240 Output Total 3350 2
[2023-12-31 13:55] VITALS: BP 111/59; PULSE 91; RESP 16; TEMP 37.2; O2SAT 90
--- NOTE | 2023-12-31 14:58 | PCPTNOTE ---
Patient refused treatment this session. Patient requests PT return tomorrow morning for treatment. PT will continue to follw per plan of care.
[2023-12-31] MEDS: DOXAZOSIN MESYLATE 4 MG TABLET PO (15:05)
[2023-12-31] MEDS: FERROUS SULFATE 325 MG TABLET DR PO (16:54)
[2023-12-31] MEDS: GABAPENTIN 300 MG CAPSULE PO (16:54)
[2023-12-31 20:44] VITALS: TEMP 38.2
[2023-12-31] MEDS: QUEtiapine FUMARATE XR 200 MG TAB.ER.24H 400 MG PO (20:44)
[2023-12-31] MEDS: ACETAMINOPHEN 325 MG TABLET 650 MG PO (20:44)
[2023-12-31 20:52] VITALS: BP 115/55; PULSE 100; RESP 24; TEMP 38.2; O2SAT 91
[2023-12-31 21:44] VITALS: TEMP 37.4
[2024-01-01 02:37] VITALS: BP 133/99; PULSE 112; TEMP 35.7; O2SAT 96
[2024-01-01 06:00] VITALS: BP 90/44; PULSE 102; RESP 24; TEMP 37.7; O2SAT 95
[2024-01-01 06:28] VITALS: BP 102/48
[2024-01-01 06:46] VITALS: TEMP 36.6
[2024-01-01] MEDS: DOXAZOSIN MESYLATE 4 MG TABLET PO (09:31)
[2024-01-01] MEDS: QUEtiapine FUMARATE 25 MG TABLET PO (09:32)
[2024-01-01] MEDS: FERROUS SULFATE 325 MG TABLET DR PO ×2 (09:33→17:06)
[2024-01-01] MEDS: CITALOPRAM HYDROBROMIDE 10 MG TABLET PO (09:33)
[2024-01-01] MEDS: PANTOPRAZOLE 40 MG TABLET PO (09:33)
[2024-01-01] MEDS: ROSUVASTATIN 10 MG TABLET 20 MG PO (09:34)
[2024-01-01] MEDS: IRON SUCROSE COMPLEX 500 MG in SODIUM CHLORIDE 0.9% IV 250 ML 79 MG IVPB (09:34)
[2024-01-01] MEDS: ENOXAPARIN 40 MG/0.4 ML SYRINGE SUB-Q (09:35)
[2024-01-01] MEDS: THIAMINE HCL 200 MG/2 ML VIAL 100 MG IV PUSH (09:35)
--- NOTE | 2024-01-01 11:47 | PCPTNOTE ---
Patient sleeping soundly and does not arouse to participate in PT at this time. RN aware. Continue PT per plan of care.
--- NOTE | 2024-01-01 13:19 | PM.IMPN ---
Progress Note: A&P Assessment and Plan (1) Hypokalemia: Code(s): E87.6 - Hypokalemia Status: Acute (2) Protein calorie malnutrition: Code(s): E46 - Unspecified protein-calorie malnutrition Status: Acute (3) Iron deficiency anemia: Code(s): D50.9 - Iron deficiency anemia, unspecified Status: Acute (4) Weight loss: Code(s): R63.4 - Abnormal weight loss Status: Acute (5) Colonic mass: Code(s): K63.89 - Other specified diseases of intestine Status: Acute (6) Malnutrition related to chronic disease: Code(s): E46 - Unspecified protein-calorie malnutrition Status: Acute (7) Electrolyte abnormality: Code(s): E87.8 - Other disorders of electrolyte and fluid balance, not elsewhere classified Status: Acute Plan #primary adenocarcinoma of transverse colon -biopsy from sigmoidoscopy, tissue shows adenocarcinoma. CT abdomen pelvis inches does not show metastasis. primary lesion 17 cm mass -consult to oncology: likely localized cancer, no sign of metastasis on imaging -CEA 1070, will need outpatient PET scan as per oncology - plan for continuing nutritional supplementation and outpatient follow-up with surgery for planned outpatient colectomy in next few weeks (this is to minimize surgical risk) - possible TPN if he can be arranged with correction insurance, holding off on PICC line until decision is made on TPN #severe protein calorie malnutrition # normocytic anemia -ensure to meals TID -weight loss, muscle wasting, appears cachectic - malnutrition secondary to cancer - iron deficiency anemia: Giving IV iron, will likely need to discharge on 325mg BID Fe #septic shock on presentation -septic shock on 12/21, has resolved -completed ABx #Chronic conditions - restarting home meds -COPD -depression: celexa, seroquel -neuropathy: gabapentin -BPH? doxazosin -GERD: protonix -HLD: statin -insomnia: trazodone Diet:?bland low fiber diet DVT ppx:?lovenox GI ppx:?protonix Code status: DNR Disposition: SNF, will need close outpatient follow up with surgery for colectomy Subjective Date/time seen: 01/01/24 13:19 Interval history: patient seen examined. He is doing well no new complaints. Apparently he completed his breakfast. will continue nutrition support with Ensure is encouraging p.o. intake. We are still trying to find out if correction and insurance will take TPN, holding off on PICC line until that is decided. we are deferring surgery for nutritional status. Patient denies fever, chills, nausea vomiting, diarrhea, chest pain, shortness of breath Review of Systems Review of Systems: 10 point ROS complete, negative other than what is specified in HPI. Exam Narrative: - GENERAL: Pleasant frail a cactus male in no acute distress. muscle wasting present - EYES: EOMI. Anicteric. - HENT: Moist mucous membranes. - LUNGS: Clear to auscultation bilaterally, no wheezing, rhonchi, or rales. - CARDIOVASCULAR: Regular rate and rhythm. No murmur. No JVD. TLC removed - ABDOMEN: Soft, distended, he does have LUQ pain on palpation, Palpable masses - EXTREMITIES: No edema. Peripheral pulses 2+. Non-tender. - NEUROLOGIC: No focal neurological deficits. CN II-XII grossly intact. - PSYCHIATRIC: Awake, Alert and oriented x 3. Appropriate mood and affect. - SKIN: No rashes or lesions. Warm. mepelix dressing over sacrum - LYMPH: No cervical lymphadenopathy. Objective Data Vital Signs Vital Signs: Vital Signs - 24 hr 12/31/23 13:55 12/31/23 20:44 12/31/23 20:52 Temperature 37.2 C 38.2 C H 38.2 C H Pulse Rate 91 100 Respiratory Rate 16 24 H Blood Pressure 111/59 L 115/55 L Pulse Oximetry 90 91 Oxygen Delivery 12/31/23 21:44 01/01/24 02:37 01/01/24 06:00 Temperature 37.4 C 35.7 C L 37.7 C H Pulse Rate 112 H 102 H Respiratory Rate 24 H Blood Pressure 133/99 H 90/44 L Pulse Oximetry 96 95 Oxygen Delivery
[2024-01-01 14:00] VITALS: BP 97/50; PULSE 90; RESP 18; TEMP 37.4; O2SAT 100
[2024-01-01] MEDS: GABAPENTIN 300 MG CAPSULE PO (17:07)
[2024-01-01] MEDS: QUEtiapine FUMARATE XR 200 MG TAB.ER.24H 400 MG PO (20:14)
[2024-01-01 22:00] VITALS: BP 105/57; PULSE 98; RESP 22; TEMP 37.7; O2SAT 91
[2024-01-02 06:00] VITALS: BP 90/60; PULSE 99; RESP 20; TEMP 38.2; O2SAT 91
--- NOTE | 2024-01-02 10:05 | PCNFU ---
Addendum entered by Natalia Mckeon RD, LDN 01/02/24 10:09: Add: MD notes state pt may need to be discharged on TPN, trying to find a SNF that takes TPN. Original Note: Nutrition Follow-Up Complete: Severe Protein Calorie Malnutrition as related to inadequate protein energy intake with increased protein-energy needs in setting of chronic disease (cancer) as evidenced by minimal oral intake for > 1-2 months, significant weight loss of 28% (49 ibs) in 2 months: severe muscle wasting (temporalis, clavicle region) and severe subcutaneous fat loss (orbital fat pads, ribs) Meet estimanted nutritional needs - Progressing Goal: Pt current nutrition is [place] diet. Ensure Enlive TID for additional 250 kcal and 20 g protein each. Nutrition recommendation: No new nutrition recommendations. Continue with current nutrition care plan. Last recorded weight is 65.2 kg. Bowel Motility: +2 BMs 01/01/24 Labs Reviewed: No new labs since 12/31/23: Hgb 8.7, Hct 28.3, Alb 2.7, Na 131, BUN 8, Cre 0.4 Meds Noted: Protonix, thiamine, vanco Skin: No pressure injuries Additional Notes: Diet advanced to bland. Tolerating some intake. Continue to advance per MD. Will monitor weight, labs, skin, meds, oral intake every 3 days.
[2024-01-02] MEDS: ROSUVASTATIN 10 MG TABLET 20 MG PO (10:13)
[2024-01-02] MEDS: THIAMINE HCL 200 MG/2 ML VIAL 100 MG IV PUSH (10:13)
[2024-01-02] MEDS: ENOXAPARIN 40 MG/0.4 ML SYRINGE SUB-Q (10:14)
[2024-01-02] MEDS: PANTOPRAZOLE 40 MG TABLET PO (10:14)
[2024-01-02] MEDS: CITALOPRAM HYDROBROMIDE 10 MG TABLET PO (10:14)
[2024-01-02] MEDS: QUEtiapine FUMARATE 25 MG TABLET PO (10:14)
[2024-01-02] MEDS: DOXAZOSIN MESYLATE 4 MG TABLET PO (10:14)
[2024-01-02] MEDS: FERROUS SULFATE 325 MG TABLET DR PO ×2 (10:14→17:49)
[2024-01-02 14:00] VITALS: BP 197/41; PULSE 100; RESP 16; TEMP 37.3; O2SAT 90
--- NOTE | 2024-01-02 14:32 | PM.IMPN ---
Progress Note: A&P Assessment and Plan (1) Hypokalemia: Code(s): E87.6 - Hypokalemia Status: Acute (2) Protein calorie malnutrition: Code(s): E46 - Unspecified protein-calorie malnutrition Status: Acute (3) Iron deficiency anemia: Code(s): D50.9 - Iron deficiency anemia, unspecified Status: Acute (4) Weight loss: Code(s): R63.4 - Abnormal weight loss Status: Acute (5) Colonic mass: Code(s): K63.89 - Other specified diseases of intestine Status: Acute (6) Malnutrition related to chronic disease: Code(s): E46 - Unspecified protein-calorie malnutrition Status: Acute (7) Electrolyte abnormality: Code(s): E87.8 - Other disorders of electrolyte and fluid balance, not elsewhere classified Status: Acute Plan #primary adenocarcinoma of transverse colon -biopsy from sigmoidoscopy, tissue shows adenocarcinoma. CT abdomen pelvis inches does not show metastasis. primary lesion 17 cm mass -consult to oncology: likely localized cancer, no sign of metastasis on imaging -CEA 1070, will need outpatient PET scan as per oncology - plan for continuing nutritional supplementation and outpatient follow-up with surgery for planned outpatient colectomy in next few weeks (this is to minimize surgical risk) - Patient will need weekly CMP, prealbumin and transferrin - patient is tolerating p.o. intake drinking Ensure, we will hold off on TPN as his p.o. intake has improved significantly - he will need outpatient follow up with surgery to arrange for colectomy and tumor resection # severe protein calorie malnutrition # normocytic anemia -ensure to meals TID -weight loss, muscle wasting, appears cachectic - malnutrition secondary to cancer - iron deficiency anemia: Giving IV iron, plan to discharge on 325mg BID Fe #septic shock on presentation -septic shock on 12/21, has resolved -completed ABx #Chronic conditions -COPD -depression: celexa, seroquel -neuropathy: gabapentin -BPH? doxazosin -GERD: protonix -HLD: statin -insomnia: trazodone Diet:?bland low fiber diet DVT ppx:?lovenox GI ppx:?protonix Code status: DNR Disposition: SNF tomorrow Subjective Date/time seen: 01/02/24 14:32 Interval history: Patient seen and examined. He is doing well with no new complaints. Patient is slightly hypotensive this morning but asymptomatic. Patient is tolerating p.o. intake and eating more than previously. He is completing his Breakfast and drinking home with his Ensure. will continue supportive care with encouraging p.o. intake and have outpatient follow-up with General surgery for tumor resection colectomy. surgery once weekly CMP, prealbumin, transferrin labs to monitor nutritional status. Likely discharge to SNF tomorrow. he denies fever, chills, nausea, vomiting, diarrhea, chest pain, shortness of breath. Review of Systems Review of Systems: 10 point ROS complete, negative other than what is specified in HPI. Exam Narrative: - GENERAL: Pleasant frail a cactus male in no acute distress. muscle wasting present - EYES: EOMI. Anicteric. - HENT: Moist mucous membranes. - LUNGS: Clear to auscultation bilaterally, no wheezing, rhonchi, or rales. - CARDIOVASCULAR: Regular rate and rhythm. No murmur. No JVD. TLC removed - ABDOMEN: Soft, distended, he does have LUQ pain on palpation, Palpable masses - EXTREMITIES: No edema. Peripheral pulses 2+. - NEUROLOGIC: No focal neurological deficits. CN II-XII grossly intact. - PSYCHIATRIC: Awake, Alert and oriented x 3. Appropriate mood and affect. - SKIN: No rashes or lesions. mepelix dressing over sacrum Objective Data Vital Signs Vital Signs: Vital Signs - 24 hr 01/01/24 20:00 01/01/24 22:00 01/02/24 06:00 Temperature 37.7 C H 38.2 C H Pulse Rate 98 99 Respiratory Rate 22 H 20 Blood Pressure 105/57 L 90/60 L Pulse Oximetry 91 91 Oxygen Delivery Room Air 01/02/24 08:00 Temperat
[2024-01-02] MEDS: GABAPENTIN 300 MG CAPSULE PO (17:49)
[2024-01-02 20:00] VITALS: O2SAT 92
[2024-01-02] MEDS: QUEtiapine FUMARATE XR 200 MG TAB.ER.24H 400 MG PO (20:43)
[2024-01-02 22:00] VITALS: BP 114/54; PULSE 103; RESP 20; TEMP 37.1; O2SAT 92
[2024-01-03 05:55] VITALS: BP 121/57; PULSE 97; RESP 20; TEMP 36.5; O2SAT 91
[2024-01-03 06:38] LABS: Hematocrit 27.5 % (42.0-52.0); Hemoglobin 8.2 g/dL (14.0-18.0); Mean Corpuscular HGB Conc 29.8 g/dl (32-36); Mean Corpuscular Hemoglobin 26.1 pg (26-34); Mean Corpuscular Volume 87.6 fl (80-100); Mean Platelet Volume 8.8 fl (7.4-10.4); Platelet Count Result 313 k/mm3 (150-375); Red Blood Count 3.14 M/mm3 (4.6-6.20); Red Cell Distribution Width 17.8 % (11.5-14.5); White Blood Count 11.7 K/mm3 (4.5-10.0)
[2024-01-03 06:56] LABS: Anion Gap 3 mmol/L (4-12); Blood Urea Nitrogen 12 mg/dL (9-20); Calcium 8.3 mg/dL (8.4-10.2); Carbon Dioxide 27 mmol/L (22-30); Chloride 99 mmol/L (98-107); Estimated CRCL calculation 97 ml/min; Estimated Glomerular Filt Rate > 60; Glucose 102 mg/dL (65-110); Magnesium 2.1 mg/dL (1.6-2.3); Potassium 3.9 mmol/L (3.4-5.0); Sodium 129 mmol/L (137-145)
[2024-01-03 08:55] VITALS: BP 78/45
[2024-01-03] MEDS: CITALOPRAM HYDROBROMIDE 10 MG TABLET PO (09:06)
[2024-01-03] MEDS: THIAMINE HCL 200 MG/2 ML VIAL 100 MG IV PUSH (09:07)
[2024-01-03] MEDS: FERROUS SULFATE 325 MG TABLET DR PO ×2 (09:07→17:32)
[2024-01-03] MEDS: PANTOPRAZOLE 40 MG TABLET PO (09:07)
[2024-01-03] MEDS: ROSUVASTATIN 10 MG TABLET 20 MG PO (09:07)
[2024-01-03] MEDS: QUEtiapine FUMARATE 25 MG TABLET PO (09:07)
[2024-01-03] MEDS: SODIUM CHLORIDE 0.9% IV 1,000 ML 125 ML IV CONT (09:12)
[2024-01-03 11:00] VITALS: BP 97/50
[2024-01-03 14:00] VITALS: BP 94/47; PULSE 103; RESP 14; TEMP 37.4; O2SAT 100
--- NOTE | 2024-01-03 15:12 | PM.IMPN ---
Progress Note: A&P Assessment and Plan (1) Hypokalemia: Code(s): E87.6 - Hypokalemia Status: Acute (2) Protein calorie malnutrition: Code(s): E46 - Unspecified protein-calorie malnutrition Status: Acute (3) Weight loss: Code(s): R63.4 - Abnormal weight loss Status: Acute (4) Iron deficiency anemia: Code(s): D50.9 - Iron deficiency anemia, unspecified Status: Acute (5) Electrolyte abnormality: Code(s): E87.8 - Other disorders of electrolyte and fluid balance, not elsewhere classified Status: Acute (6) Malnutrition related to chronic disease: Code(s): E46 - Unspecified protein-calorie malnutrition Status: Acute (7) COPD (chronic obstructive pulmonary disease): Code(s): J44.9 - Chronic obstructive pulmonary disease, unspecified Status: Acute (8) Colonic mass: Code(s): K63.89 - Other specified diseases of intestine Status: Acute (9) Septic shock: Code(s): A41.9 - Sepsis, unspecified organism; R65.21 - Severe sepsis with septic shock Status: Acute (10) Hypotension: Code(s): I95.9 - Hypotension, unspecified Status: Acute (11) Tobacco abuse: Code(s): Z72.0 - Tobacco use Status: Acute (12) Chronic alcohol abuse: Code(s): F10.10 - Alcohol abuse, uncomplicated Status: Acute (13) Hypoalbuminemia: Code(s): E88.09 - Other disorders of plasma-protein metabolism, not elsewhere classified Status: Acute Plan The patient has complaints to elucidate other than his loose stools this morning. Considering his chronic iron deficiency anemia and slowly decreasing hemoglobin by the day, will check a stool occult. Consider PRBC transfusion for hemoglobin less than 7. Continue recs per dietitian. His low blood pressures have been improving status post initiation of continuous normal saline infusion at 125 cc/hour since this morning. He has hypoalbuminemia with his cancer albumin infusion is a consideration as well. Considering his septic shock on admission without clear source and his increasing leukocytosis today will check a procalcitonin chest x-ray UA and repeat blood cultures. He is otherwise afebrile and does not have complaints to add to the symptomatology of sepsis. He has slightly worsened hyponatremia today at 129 millimole per L which may be related to hypovolemia. DNR. Lovenox. Discharge to SNF when more stable. Subjective Date/time seen: 01/03/24 15:12 Interval history: Low blood pressures this morning status post initiation of continuous infusion of normal saline at 125 cc/hour. Patient otherwise has no complaints and report his appetite is good. He reports a few loose stools this morning. Review of Systems Review of Systems: All systems reviewed & are unremarkable except as noted in HPI and below (Subjective) Exam Const: General: comfortable and no acute distress Other: A&O x3. Cachectic Eyes: Pupils: Equal, round and reactive pupils present Neck: Neck: supple Resp: Effort & Inspection: normal respiratory effort Auscultation: clear to auscultation bilaterally Cardio: Rate: regular rate Rhythm: regular rhythm GI: GI Palp: Yes Soft to palpation and No Tenderness to palpation present (GI) Extrem: General: no edema Objective Data Vital Signs Vital Signs: Vital Signs - 24 hr 01/02/24 20:00 01/02/24 22:00 01/03/24 05:55 Temperature 98.8 F 97.7 F Pulse Rate 103 H 97 Respiratory Rate 20 20 Blood Pressure 114/54 L 121/57 L Pulse Oximetry 92 92 91 Oxygen Delivery Room Air 01/03/24 08:00 01/03/24 08:55 01/03/24 11:00 Temperature Pulse Rate Respiratory Rate Blood Pressure 78/45 L 97/50 L Pulse Oximetry Oxygen Delivery Room Air Intake/Output Intake/Output: Intake & Output 12/31/23 01/01/24 01/02/24 01/03/24 23:59 23:59 23:59 23:59 Intake Total 975 822 530 220 Output Total 3250 Ayush
[2024-01-03 16:31] LABS: Appearance Urine Cloudy (Clear); Bacteria Urine 4+ /hpf; Bilirubin Urine 1+ (Negative); Blood Urine Negative (Negative); Color Urine Dark Yellow (Yellow); Glucose Urine UA Negative (Negative); Ketones Urine Negative (Negative); Leukocyte Esterase Ur Negative LEU/UL (Negative); Need Manual Microscopic Reviewed; Nitrate Urine Negative (Negative); Protein Urine 3+ mg/dL (Negative); Squamous Epithelial Cell Urine Few /hpf (Few); WBC Urine 0-5 /hpf (0-3); pH Urine 5.5 (5.0-9.0)
[2024-01-03 16:33] LABS: Add Urine Microscopic? YES
[2024-01-03 17:18] LABS: Influenza A QL RT-PCR Negative (Negative); Influenza B QL RT-PCR Negative (Negative); RSV RNA, RT-PCR Negative (Negative); SARS-CoV-2 RNA PCR Negative (Negative)
[2024-01-03] MEDS: GABAPENTIN 300 MG CAPSULE PO (17:32)
[2024-01-03] MEDS: QUEtiapine FUMARATE XR 200 MG TAB.ER.24H 400 MG PO (20:42)
[2024-01-03 22:00] VITALS: BP 94/43; PULSE 98; RESP 20; TEMP 37.2; O2SAT 94
[2024-01-04] MEDS: SODIUM CHLORIDE 0.9% IV 1,000 ML 125 ML IV CONT (00:44)
[2024-01-04 05:50] LABS: Basophils Absolute Auto 0.1 K/mm3 (0.0-0.1); Basophils Percent Auto 0.6 % (0.2-1.2); Eosinophils Absolute Auto 0.1 K/mm3 (0-0.3); Eosinophils Percent Auto 0.5 % (0-4.4); Hemoglobin 7.5 g/dL (14.0-18.0); Immature Granulocyte Percent A 1.1 % (0-0.5); Lymphocytes Absolute Auto 1.26 K/mm3 (0.9-3.2); Lymphocytes Percent Auto 13.3 % (18.3-44.2); Mean Corpuscular Hemoglobin 26.3 pg (26-34); Mean Corpuscular Volume 87.7 fl (80-100); Mean Platelet Volume 8.6 fl (7.4-10.4); Monocytes Absolute Auto 1.2 K/mm3 (0.1-0.6); Monocytes Percent Auto 13.1 % (2.6-8.5); Neutrophils Absolute Auto 6.8 K/mm3 (1.3-6.7); Neutrophils Percent Auto 71.4 % (45.5-73.1); Platelet Count Result 325 k/mm3 (150-375); Red Blood Count 2.85 M/mm3 (4.6-6.20); Red Cell Distribution Width 17.5 % (11.5-14.5); White Blood Count 9.5 K/mm3 (4.5-10.0)
[2024-01-04 06:00] VITALS: BP 105/41; PULSE 103; RESP 22; TEMP 37.1; O2SAT 92
[2024-01-04 06:04] LABS: Alanine Aminotransferase 21 U/L (6-50); Albumin Level 2.5 g/dL (3.5-5.1); Alkaline Phosphatase 180 U/L (38-126); Anion Gap 3 mmol/L (4-12); Aspartate Amino Transferase 36 U/L (17-59); Blood Urea Nitrogen 12 mg/dL (9-20); Calcium 8.3 mg/dL (8.4-10.2); Carbon Dioxide 26 mmol/L (22-30); Chloride 104 mmol/L (98-107); Estimated CRCL calculation 73 ml/min; Estimated Glomerular Filt Rate > 60; Glucose 115 mg/dL (65-110); Magnesium 1.9 mg/dL (1.6-2.3); Potassium 3.6 mmol/L (3.4-5.0); Sodium 133 mmol/L (137-145)
[2024-01-04 06:31] LABS: Procalcitonin 0.6 ng/mL
[2024-01-04 08:00] VITALS: BP 94/52; PULSE 103; RESP 22; TEMP 37.1; O2SAT 92
--- NOTE | 2024-01-04 08:30 | PM.IMPN ---
Progress Note: A&P Assessment and Plan (1) Hypokalemia: Code(s): E87.6 - Hypokalemia Status: Acute (2) Protein calorie malnutrition: Code(s): E46 - Unspecified protein-calorie malnutrition Status: Acute (3) Weight loss: Code(s): R63.4 - Abnormal weight loss Status: Acute (4) Iron deficiency anemia: Code(s): D50.9 - Iron deficiency anemia, unspecified Status: Acute (5) Electrolyte abnormality: Code(s): E87.8 - Other disorders of electrolyte and fluid balance, not elsewhere classified Status: Acute (6) Malnutrition related to chronic disease: Code(s): E46 - Unspecified protein-calorie malnutrition Status: Acute (7) COPD (chronic obstructive pulmonary disease): Code(s): J44.9 - Chronic obstructive pulmonary disease, unspecified Status: Acute (8) Colonic mass: Code(s): K63.89 - Other specified diseases of intestine Status: Acute (9) Septic shock: Code(s): A41.9 - Sepsis, unspecified organism; R65.21 - Severe sepsis with septic shock Status: Acute (10) Hypotension: Code(s): I95.9 - Hypotension, unspecified Status: Acute (11) Tobacco abuse: Code(s): Z72.0 - Tobacco use Status: Acute (12) Chronic alcohol abuse: Code(s): F10.10 - Alcohol abuse, uncomplicated Status: Acute (13) Hypoalbuminemia: Code(s): E88.09 - Other disorders of plasma-protein metabolism, not elsewhere classified Status: Acute Plan Today his blood pressure still soft but consistent. Discontinue fluids and start q.6 albumin infusion. Very malnourished with hypoalbuminemia. Trend albumin level. If improvement is not obtained then TPN is again a consideration. His hemoglobin has also trended down. However, he has not had any more loose stools and no stool occult has been obtained. Discontinue Lovenox. Continue to trend hemoglobin. RBC transfusion is a consideration. He has received 2 units PRBCs earlier in this admission. SCDs only. DNR. Subjective Date/time seen: 01/04/24 08:30 Interval history: No acute overnight events. Patient rests comfortably lying flat in bed this morning. He has no complaints. Review of Systems Review of Systems: All systems reviewed & are unremarkable except as noted in HPI and below (Subjective) Exam Const: General: comfortable and no acute distress Other: Cachectic Eyes: Pupils: Equal, round and reactive pupils present Neck: Neck: supple Resp: Effort & Inspection: normal respiratory effort Auscultation: clear to auscultation bilaterally Cardio: Rate: regular rate Rhythm: regular rhythm GI: GI Palp: Yes Soft to palpation and No Tenderness to palpation present (GI) Extrem: General: no edema Objective Data Vital Signs Vital Signs: Vital Signs - 24 hr 01/03/24 08:55 01/03/24 11:00 01/03/24 14:00 Temperature 99.3 F Pulse Rate 103 H Respiratory Rate 14 Blood Pressure 78/45 L 97/50 L 94/47 L Pulse Oximetry 100 Oxygen Delivery 01/03/24 20:45 01/03/24 22:00 01/04/24 06:00 Temperature 98.9 F 98.7 F Pulse Rate 98 103 H Respiratory Rate 20 22 H Blood Pressure 94/43 L 105/41 L Pulse Oximetry 94 92 Oxygen Delivery Room Air Intake/Output Intake/Output: Intake & Output 01/01/24 01/02/24 01/03/24 01/04/24 23:59 23:59 23:59 23:59 Intake Total 674 399 4958 100 Balance 717 557 8476 100 Meds/Results Medications: Active Medications Generic Name Dose Route Start Last Admin Trade Name Freq PRN Reason Stop Dose Admin Acetaminophen 650 mg 12/22/23 20:09 12/31/23 20:44 Acetaminophen 325 Mg Tablet PO 650 mg Q4H PRN Administration Mild Pain (1-3) or Fever Albuterol/Ipratropium 3 ml 12/23/23 08:49 Ipratropium 0.5 Mg/Albuterol Sulfate 2.5 Mg Ampul.Neb 3 Ml INHALATION Q6HRT PRN Wheezing or shortness of breath Citalopram Hydrobromide 10 mg 01/01/24 09:00 0
[2024-01-04 08:55] VITALS: BP 94/52
[2024-01-04] MEDS: FERROUS SULFATE 325 MG TABLET DR PO ×2 (08:57→17:49)
[2024-01-04] MEDS: PANTOPRAZOLE 40 MG TABLET PO (08:57)
[2024-01-04] MEDS: CITALOPRAM HYDROBROMIDE 10 MG TABLET PO (08:57)
[2024-01-04] MEDS: QUEtiapine FUMARATE 25 MG TABLET PO (08:57)
[2024-01-04] MEDS: ROSUVASTATIN 10 MG TABLET 20 MG PO (08:57)
[2024-01-04] MEDS: THIAMINE HCL 200 MG/2 ML VIAL 100 MG IV PUSH (08:58)
[2024-01-04 14:00] VITALS: BP 105/49; PULSE 106; RESP 14; TEMP 36.7; O2SAT 94
--- NOTE | 2024-01-04 15:00 | PCOTNOTE ---
Attempted to see patient for OT treatment. Patient declining any/all activity at this time. Will continue to attempt.
[2024-01-04] MEDS: ALBUMIN HUMAN 25% 25 GM/100 ML 100 ML IVPB ×2 (17:49→23:31)
[2024-01-04] MEDS: GABAPENTIN 300 MG CAPSULE PO (17:49)
[2024-01-04 19:06] LABS: Hematocrit 24.5 % (42.0-52.0); Hemoglobin 7.5 g/dL (14.0-18.0)
[2024-01-04] MEDS: QUEtiapine FUMARATE XR 200 MG TAB.ER.24H 400 MG PO (20:58)
[2024-01-04] MEDS: SALINE LOCK FLUSH 10 ML IV PUSH (20:59)
[2024-01-04 22:00] VITALS: BP 110/48; PULSE 109; RESP 18; TEMP 37.3; O2SAT 91
[2024-01-05] VITALS (8 sets, daily range): BP systolic 96–130; BP diastolic 39–73; PULSE 107–118; RESP 16–20; TEMP 36.1–37.6; O2SAT 91–96
[2024-01-05] MEDS: ALBUMIN HUMAN 25% 25 GM/100 ML 100 ML IVPB ×3 (05:34→17:52)
[2024-01-05] MEDS: SALINE LOCK FLUSH 10 ML IV PUSH ×3 (05:35→21:24)
[2024-01-05 06:02] LABS: Basophils Absolute Auto 0.1 K/mm3 (0.0-0.1); Basophils Percent Auto 0.6 % (0.2-1.2); Eosinophils Absolute Auto 0.1 K/mm3 (0-0.3); Eosinophils Percent Auto 0.5 % (0-4.4); Hematocrit 27.2 % (42.0-52.0); Immature Granulocyte Absolute 0.11 K/mm3 (0.00-0.031); Immature Granulocyte Percent A 1.1 % (0-0.5); Lymphocytes Absolute Auto 0.79 K/mm3 (0.9-3.2); Lymphocytes Percent Auto 8.2 % (18.3-44.2); Mean Corpuscular HGB Conc 29.4 g/dl (32-36); Mean Corpuscular Hemoglobin 26.3 pg (26-34); Mean Corpuscular Volume 89.5 fl (80-100); Mean Platelet Volume 8.7 fl (7.4-10.4); Monocytes Absolute Auto 1.2 K/mm3 (0.1-0.6); Neutrophils Absolute Auto 7.5 K/mm3 (1.3-6.7); Neutrophils Percent Auto 77.6 % (45.5-73.1); Platelet Count Result 373 k/mm3 (150-375); Red Blood Count 3.04 M/mm3 (4.6-6.20); Red Cell Distribution Width 17.9 % (11.5-14.5); White Blood Count 9.6 K/mm3 (4.5-10.0)
[2024-01-05 06:11] LABS: Alanine Aminotransferase 22 U/L (6-50); Albumin Level 3.3 g/dL (3.5-5.1); Alkaline Phosphatase 174 U/L (38-126); Anion Gap 8 mmol/L (4-12); Aspartate Amino Transferase 37 U/L (17-59); Bilirubin,Total 1.6 mg/dL (0.2-1.3); Blood Urea Nitrogen 11 mg/dL (9-20); Calcium 8.9 mg/dL (8.4-10.2); Carbon Dioxide 25 mmol/L (22-30); Chloride 102 mmol/L (98-107); Estimated CRCL calculation 73 ml/min; Estimated Glomerular Filt Rate > 60; Glucose 127 mg/dL (65-110); Magnesium 2.1 mg/dL (1.6-2.3); Phosphorus 2.9 mg/dL (2.5-4.5); Potassium 3.5 mmol/L (3.4-5.0); Sodium 135 mmol/L (137-145)
[2024-01-05 08:05] LABS: Hypochromasia 1+; Platelet Estimate Adequate (Adequate); Schistocytes None Seen
[2024-01-05] MEDS: FERROUS SULFATE 325 MG TABLET DR PO ×2 (09:03→17:52)
[2024-01-05] MEDS: PANTOPRAZOLE 40 MG TABLET PO (09:03)
[2024-01-05] MEDS: QUEtiapine FUMARATE 25 MG TABLET PO (09:03)
[2024-01-05] MEDS: ROSUVASTATIN 10 MG TABLET 20 MG PO (09:03)
[2024-01-05] MEDS: CITALOPRAM HYDROBROMIDE 10 MG TABLET PO (09:03)
[2024-01-05] MEDS: THIAMINE HCL 200 MG/2 ML VIAL 100 MG IV PUSH (09:04)
--- NOTE | 2024-01-05 11:49 | PC.NURSE ---
RN spoke with Tasia from [facility] and gave update on patient via telephone.
[2024-01-05] MEDS: ACETAMINOPHEN 325 MG TABLET 650 MG PO (14:23)
--- NOTE | 2024-01-05 15:17 | PM.IMPN ---
Progress Note: A&P Assessment and Plan (1) Hypokalemia: Code(s): E87.6 - Hypokalemia Status: Acute (2) Protein calorie malnutrition: Code(s): E46 - Unspecified protein-calorie malnutrition Status: Acute (3) Weight loss: Code(s): R63.4 - Abnormal weight loss Status: Acute (4) Iron deficiency anemia: Code(s): D50.9 - Iron deficiency anemia, unspecified Status: Acute (5) Electrolyte abnormality: Code(s): E87.8 - Other disorders of electrolyte and fluid balance, not elsewhere classified Status: Acute (6) Malnutrition related to chronic disease: Code(s): E46 - Unspecified protein-calorie malnutrition Status: Acute (7) COPD (chronic obstructive pulmonary disease): Code(s): J44.9 - Chronic obstructive pulmonary disease, unspecified Status: Acute (8) Colonic mass: Code(s): K63.89 - Other specified diseases of intestine Status: Acute (9) Septic shock: Code(s): A41.9 - Sepsis, unspecified organism; R65.21 - Severe sepsis with septic shock Status: Acute (10) Hypotension: Code(s): I95.9 - Hypotension, unspecified Status: Acute (11) Tobacco abuse: Code(s): Z72.0 - Tobacco use Status: Acute (12) Chronic alcohol abuse: Code(s): F10.10 - Alcohol abuse, uncomplicated Status: Acute (13) Hypoalbuminemia: Code(s): E88.09 - Other disorders of plasma-protein metabolism, not elsewhere classified Status: Acute Plan Today his blood pressure still soft but consistent. Discontinue fluids and start q.6 albumin infusion. Very malnourished with hypoalbuminemia. Trend albumin level. If improvement is not obtained then TPN is again a consideration. His hemoglobin has also trended down. However, he has not had any more loose stools and no stool occult has been obtained. Discontinue Lovenox. Continue to trend hemoglobin. RBC transfusion is a consideration. He has received 2 units PRBCs earlier in this admission. January 04 update: Blood pressure slowly improving. Seems albumin infusion has been helping. Hemoglobin has remained relatively stable as well. Hopefully discharge to SNF tomorrow for rehab. SCDs only. DNR. Subjective Date/time seen: 01/05/24 15:17 Interval history: No acute overnight events. The patient has no complaints. Denies cough or shortness of breath. Review of Systems Review of Systems: All systems reviewed & are unremarkable except as noted in HPI and below (Subjective) Exam Const: General: comfortable and no acute distress Other: Cachectic Eyes: Pupils: Equal, round and reactive pupils present Neck: Neck: supple Resp: Effort & Inspection: normal respiratory effort Auscultation: clear to auscultation bilaterally Cardio: Rate: regular rate Rhythm: regular rhythm GI: GI Palp: Yes Soft to palpation and No Tenderness to palpation present (GI) Extrem: General: no edema Objective Data Vital Signs Vital Signs: Vital Signs - 24 hr 01/04/24 20:00 01/04/24 22:00 01/05/24 06:00 Temperature 99.1 F 98.7 F Pulse Rate 109 H 107 H Respiratory Rate 18 18 Blood Pressure 110/48 L 104/50 L Pulse Oximetry 91 96 Oxygen Delivery Room Air Oxygen Flow Rate 01/05/24 08:00 01/05/24 09:00 01/05/24 14:07 Temperature Pulse Rate Respiratory Rate Blood Pressure 96/39 L Pulse Oximetry 96 91 Oxygen Delivery Nasal Cannula Nasal Cannula Oxygen Flow Rate 1 0.5 01/05/24 14:00 Temperature 99.6 F Pulse Rate 109 H Respiratory Rate 16 Blood Pressure 122/60 Pulse Oximetry 95 Oxygen Delivery Oxygen Flow Rate Intake/Output Intake/Output: Intake & Output 01/02/24 01/03/24 01/04/24 01/05/24 23:59 23:59 23:59 23:59 Intake Total 530 1340 920 368 Balance 530 1340 920 368 Meds/Results Medications: Active Medications Generic Name Dose Route Start Last Admin Trade Name Freq PRN Reason Stop
[2024-01-05] MEDS: GABAPENTIN 300 MG CAPSULE PO (17:52)
[2024-01-05] MEDS: QUEtiapine FUMARATE XR 200 MG TAB.ER.24H 400 MG PO (21:24)
[2024-01-06] VITALS (12 sets, daily range): BP systolic 99–140; BP diastolic 35–60; PULSE 95–122; RESP 22–32; TEMP 36.1–38; O2SAT 86–98
[2024-01-06] MEDS: ALBUMIN HUMAN 25% 25 GM/100 ML 100 ML IVPB ×2 (00:58→05:57)
[2024-01-06] MEDS: ACETAMINOPHEN 325 MG TABLET 650 MG PO (05:59)
[2024-01-06] MEDS: SALINE LOCK FLUSH 10 ML IV PUSH ×3 (06:09→21:00)
[2024-01-06 06:43] LABS: Basophils Absolute Auto 0.1 K/mm3 (0.0-0.1); Basophils Percent Auto 0.6 % (0.2-1.2); Eosinophils Absolute Auto 0.1 K/mm3 (0-0.3); Eosinophils Percent Auto 0.8 % (0-4.4); Hematocrit 22.6 % (42.0-52.0); Immature Granulocyte Absolute 0.11 K/mm3 (0.00-0.031); Immature Granulocyte Percent A 1.4 % (0-0.5); Lymphocytes Percent Auto 16.5 % (18.3-44.2); Mean Corpuscular HGB Conc 30.5 g/dl (32-36); Mean Corpuscular Hemoglobin 26.7 pg (26-34); Mean Corpuscular Volume 87.6 fl (80-100); Mean Platelet Volume 8.9 fl (7.4-10.4); Monocytes Absolute Auto 1.1 K/mm3 (0.1-0.6); Monocytes Percent Auto 13.6 % (2.6-8.5); Neutrophils Absolute Auto 5.3 K/mm3 (1.3-6.7); Neutrophils Percent Auto 67.1 % (45.5-73.1); Platelet Count Result 333 k/mm3 (150-375); Red Blood Count 2.58 M/mm3 (4.6-6.20); White Blood Count 7.9 K/mm3 (4.5-10.0)
[2024-01-06 06:54] LABS: Hemoglobin 6.9 g/dL (14.0-18.0)
[2024-01-06 06:56] LABS: Anion Gap 8 mmol/L (4-12); Blood Urea Nitrogen 12 mg/dL (9-20); Calcium 9.2 mg/dL (8.4-10.2); Carbon Dioxide 25 mmol/L (22-30); Chloride 105 mmol/L (98-107); Estimated CRCL calculation 74 ml/min; Estimated Glomerular Filt Rate > 60; Glucose 121 mg/dL (65-110); Magnesium 2.1 mg/dL (1.6-2.3); Phosphorus 1.9 mg/dL (2.5-4.5); Potassium 3.1 mmol/L (3.4-5.0); Sodium 138 mmol/L (137-145)
[2024-01-06] MEDS: SODIUM CHLORIDE 0.9% IV 250 ML 30 ML IV CONT (10:09)
[2024-01-06] MEDS: ROSUVASTATIN 10 MG TABLET 20 MG PO (10:44)
[2024-01-06] MEDS: PANTOPRAZOLE 40 MG TABLET PO (10:44)
[2024-01-06] MEDS: FERROUS SULFATE 325 MG TABLET DR PO ×2 (10:44→17:22)
[2024-01-06] MEDS: QUEtiapine FUMARATE 25 MG TABLET PO (10:45)
[2024-01-06] MEDS: DOXAZOSIN MESYLATE 4 MG TABLET PO (10:45)
[2024-01-06] MEDS: CITALOPRAM HYDROBROMIDE 10 MG TABLET PO (10:49)
--- NOTE | 2024-01-06 11:46 | PM.IMPN ---
Progress Note: A&P Assessment and Plan (1) Hypokalemia: Code(s): E87.6 - Hypokalemia Status: Acute (2) Protein calorie malnutrition: Code(s): E46 - Unspecified protein-calorie malnutrition Status: Acute (3) Weight loss: Code(s): R63.4 - Abnormal weight loss Status: Acute (4) Iron deficiency anemia: Code(s): D50.9 - Iron deficiency anemia, unspecified Status: Acute (5) Electrolyte abnormality: Code(s): E87.8 - Other disorders of electrolyte and fluid balance, not elsewhere classified Status: Acute (6) Malnutrition related to chronic disease: Code(s): E46 - Unspecified protein-calorie malnutrition Status: Acute (7) COPD (chronic obstructive pulmonary disease): Code(s): J44.9 - Chronic obstructive pulmonary disease, unspecified Status: Acute (8) Colonic mass: Code(s): K63.89 - Other specified diseases of intestine Status: Acute (9) Septic shock: Code(s): A41.9 - Sepsis, unspecified organism; R65.21 - Severe sepsis with septic shock Status: Acute (10) Hypotension: Code(s): I95.9 - Hypotension, unspecified Status: Acute (11) Tobacco abuse: Code(s): Z72.0 - Tobacco use Status: Acute (12) Chronic alcohol abuse: Code(s): F10.10 - Alcohol abuse, uncomplicated Status: Acute (13) Hypoalbuminemia: Code(s): E88.09 - Other disorders of plasma-protein metabolism, not elsewhere classified Status: Acute Plan 78-year-old male with a past medical history distant alcohol abuse, tobacco abuse BPH, GERD, COPD, psychiatric disorder, depression presents [facility] after being found down on the ground. He was treated for septic shock of unknown origin. Further evaluation reveals a severe protein calorie malnutrition with weight loss and cachexia. A sigmoidoscopy conducted demonstrating primary a dental carcinoma of the transverse colon primary lesion 17 cm mass #primary adenocarcinoma of transverse colon -biopsy from sigmoidoscopy, tissue shows adenocarcinoma.? CT abdomen pelvis inches does not show metastasis.? primary lesion 17 cm mass -consult to oncology:? likely localized cancer, no sign of metastasis on imaging -CEA 1070, will need outpatient PET scan as per oncology - plan for continuing nutritional supplementation and outpatient follow-up with surgery for planned outpatient colectomy in next few weeks (this is to minimize surgical risk) -? Patient will need weekly CMP, prealbumin and transferrin - patient is tolerating p.o. intake drinking Ensure, TPN is a consideration although have not had to institute this up to now. - he will need outpatient follow up with surgery to arrange for colectomy and tumor resection # severe protein calorie malnutrition -ensure to meals TID -weight loss,? muscle wasting, appears cachectic - malnutrition secondary to cancer #Multifactorial anemia -iron deficiency anemia: Received IV iron, plan to discharge on 325mg BID Fe -he has had borderline and wavering hypotension. He received q.6 albumin infusions which improved his blood pressure and his serum albumin improved. -on 01/05 hemoglobin 6.9. Transfuse 1 unit PRBC and recheck hemoglobin afterwards. Stool occult obtained and pending however is likely positive due to his colon mass. #septic shock on presentation -septic shock on 12/21, has resolved -completed ABx #Acute hypokalemia -likely due to inadequate oral intake. Place and recheck #Chronic conditions -COPD -depression: celexa, seroquel -neuropathy: gabapentin -BPH: doxazosin -GERD: protonix -HLD: statin -insomnia: trazodone Diet:?bland low fiber diet, saline lock IV DVT ppx:? Lovenox discontinued due to anemia. Continue SCDs. GI ppx:?protonix Code status:?DNR Disposition: Disposition to SNF for rehab strengthening to increase the likelihood of recovery from tumor resection. Discharge once blood pressure and anemia are stab
[2024-01-06 12:01] LABS: IFOB Positive Control Positive; Immunochemical Fecal Occult Bl Negative (N)
[2024-01-06] MEDS: POTASSIUM CHLORIDE 20 MEQ PACKET (FOR LIQUID) 40 MEQ PO (12:34)
[2024-01-06 12:38] LABS: Toxigenic C. Diff NEGATIVE (NEGATIVE)
[2024-01-06 14:28] LABS: Hematocrit 29.6 % (42.0-52.0); Hemoglobin 9.1 g/dL (14.0-18.0)
[2024-01-06] MEDS: GABAPENTIN 300 MG CAPSULE PO (17:22)
[2024-01-06] MEDS: THIAMINE HCL 200 MG/2 ML VIAL 100 MG IV PUSH (17:22)
[2024-01-06] MEDS: QUEtiapine FUMARATE XR 200 MG TAB.ER.24H 400 MG PO (20:59)
[2024-01-07 06:00] VITALS: BP 107/58; PULSE 104; RESP 18; TEMP 36.7; O2SAT 94
[2024-01-07 06:34] LABS: Basophils Absolute Auto 0.1 K/mm3 (0.0-0.1); Basophils Percent Auto 0.7 % (0.2-1.2); Eosinophils Absolute Auto 0.1 K/mm3 (0-0.3); Hematocrit 29.5 % (42.0-52.0); Hemoglobin 9.1 g/dL (14.0-18.0); Immature Granulocyte Absolute 0.08 K/mm3 (0.00-0.031); Lymphocytes Absolute Auto 0.95 K/mm3 (0.9-3.2); Lymphocytes Percent Auto 11.4 % (18.3-44.2); Mean Corpuscular HGB Conc 30.8 g/dl (32-36); Mean Corpuscular Hemoglobin 27.2 pg (26-34); Mean Corpuscular Volume 88.1 fl (80-100); Mean Platelet Volume 9.2 fl (7.4-10.4); Monocytes Absolute Auto 1.1 K/mm3 (0.1-0.6); Monocytes Percent Auto 13.3 % (2.6-8.5); Neutrophils Absolute Auto 6.1 K/mm3 (1.3-6.7); Neutrophils Percent Auto 72.6 % (45.5-73.1); Platelet Count Result 361 k/mm3 (150-375); Red Blood Count 3.35 M/mm3 (4.6-6.20); Red Cell Distribution Width 17.4 % (11.5-14.5); White Blood Count 8.3 K/mm3 (4.5-10.0)
[2024-01-07 06:48] LABS: Alanine Aminotransferase 15 U/L (6-50); Albumin Level 3.6 g/dL (3.5-5.1); Alkaline Phosphatase 146 U/L (38-126); Anion Gap 8 mmol/L (4-12); Aspartate Amino Transferase 23 U/L (17-59); Bilirubin,Total 1.6 mg/dL (0.2-1.3); Blood Urea Nitrogen 15 mg/dL (9-20); Calcium 9.4 mg/dL (8.4-10.2); Carbon Dioxide 24 mmol/L (22-30); Chloride 108 mmol/L (98-107); Estimated CRCL calculation 87 ml/min; Estimated Glomerular Filt Rate > 60; Glucose 101 mg/dL (65-110); Magnesium 2.3 mg/dL (1.6-2.3); Potassium 3.7 mmol/L (3.4-5.0); Sodium 140 mmol/L (137-145)
[2024-01-07 08:00] VITALS: BP 100/50; O2SAT 97
--- NOTE | 2024-01-07 08:46 | PM.IMPN ---
Progress Note: A&P Assessment and Plan (1) Hypokalemia: Code(s): E87.6 - Hypokalemia Status: Acute (2) Protein calorie malnutrition: Code(s): E46 - Unspecified protein-calorie malnutrition Status: Acute (3) Weight loss: Code(s): R63.4 - Abnormal weight loss Status: Acute (4) Iron deficiency anemia: Code(s): D50.9 - Iron deficiency anemia, unspecified Status: Acute (5) Electrolyte abnormality: Code(s): E87.8 - Other disorders of electrolyte and fluid balance, not elsewhere classified Status: Acute (6) Malnutrition related to chronic disease: Code(s): E46 - Unspecified protein-calorie malnutrition Status: Acute (7) COPD (chronic obstructive pulmonary disease): Code(s): J44.9 - Chronic obstructive pulmonary disease, unspecified Status: Acute (8) Colonic mass: Code(s): K63.89 - Other specified diseases of intestine Status: Acute (9) Septic shock: Code(s): A41.9 - Sepsis, unspecified organism; R65.21 - Severe sepsis with septic shock Status: Acute (10) Hypotension: Code(s): I95.9 - Hypotension, unspecified Status: Acute (11) Tobacco abuse: Code(s): Z72.0 - Tobacco use Status: Acute (12) Chronic alcohol abuse: Code(s): F10.10 - Alcohol abuse, uncomplicated Status: Acute (13) Hypoalbuminemia: Code(s): E88.09 - Other disorders of plasma-protein metabolism, not elsewhere classified Status: Acute Plan 78-year-old male with a past medical history distant alcohol abuse, tobacco abuse BPH, GERD, COPD, psychiatric disorder, depression presents from [facility] after being found down on the ground. He was treated for septic shock of unknown origin. Further evaluation reveals a severe protein calorie malnutrition with weight loss and cachexia. A sigmoidoscopy conducted demonstrating primary a dental carcinoma of the transverse colon primary lesion 17 cm mass #primary adenocarcinoma of transverse colon -biopsy from sigmoidoscopy, tissue shows adenocarcinoma.? CT abdomen pelvis inches does not show metastasis.? primary lesion 17 cm mass -consult to oncology:? likely localized cancer, no sign of metastasis on imaging -CEA 1070, will need outpatient PET scan as per oncology - plan for continuing nutritional supplementation and outpatient follow-up with surgery for planned outpatient colectomy in next few weeks (this is to minimize surgical risk) -? Patient will need weekly CMP, prealbumin and transferrin - patient is tolerating p.o. intake drinking Ensure, TPN is a consideration although have not had to institute this up to now. - he will need outpatient follow up with surgery to arrange for colectomy and tumor resection # severe protein calorie malnutrition -ensure to meals TID -weight loss,? muscle wasting, appears cachectic - malnutrition secondary to cancer #Multifactorial anemia -iron deficiency anemia: Received IV iron, plan to discharge on 325mg BID Fe -he has had borderline and wavering hypotension. He received q.6 albumin infusions which improved his blood pressure and his serum albumin improved. -on 01/05 hemoglobin 6.9. Transfuse 1 unit PRBC and recheck hemoglobin afterwards. Stool occult obtained and pending however is likely positive due to his colon mass. 01/06: occult blood negative, hemoglobin stable after blood transfusion #septic shock on presentation -septic shock on 12/21, has resolved -completed ABx #Acute hypokalemia -likely due to inadequate oral intake. Place and recheck corrected #Chronic conditions -COPD -depression: celexa, seroquel -neuropathy: gabapentin -BPH: doxazosin -GERD: protonix -HLD: statin -insomnia: trazodone Diet:?bland low fiber diet, saline lock IV DVT ppx:? Lovenox discontinued due to anemia. Continue SCDs. GI ppx:?protonix Code status:?DNR Disposition: Disposition to SNF for rehab strengthening to increase the likelihood
[2024-01-07] MEDS: THIAMINE HCL 200 MG/2 ML VIAL 100 MG IV PUSH (10:07)
[2024-01-07] MEDS: ROSUVASTATIN 10 MG TABLET 20 MG PO (10:07)
[2024-01-07] MEDS: FERROUS SULFATE 325 MG TABLET DR PO ×2 (10:07→18:15)
[2024-01-07] MEDS: PANTOPRAZOLE 40 MG TABLET PO (10:08)
[2024-01-07] MEDS: DOXAZOSIN MESYLATE 4 MG TABLET PO (10:08)
[2024-01-07] MEDS: QUEtiapine FUMARATE 25 MG TABLET PO (10:08)
[2024-01-07] MEDS: CITALOPRAM HYDROBROMIDE 10 MG TABLET PO (10:08)
[2024-01-07 11:29] VITALS: O2SAT 93
[2024-01-07] MEDS: SALINE LOCK FLUSH 10 ML IV PUSH (13:27)
[2024-01-07 13:57] VITALS: BP 100/50; PULSE 107; RESP 20; TEMP 36.9; O2SAT 95
[2024-01-07] MEDS: GABAPENTIN 300 MG CAPSULE PO (18:15)
[2024-01-07 20:00] VITALS: O2SAT 94
[2024-01-07] MEDS: QUEtiapine FUMARATE XR 200 MG TAB.ER.24H 400 MG PO (21:13)
[2024-01-07 22:00] VITALS: BP 124/78; PULSE 107; RESP 20; TEMP 36.4; O2SAT 94
[2024-01-08] VITALS (8 sets, daily range): BP systolic 95–123; BP diastolic 45–70; PULSE 110–135; RESP 20–32; TEMP 37.6–37.7; O2SAT 90–98
[2024-01-08 06:57] LABS: Prealbumin < 3.0 mg/dL (17.6-36.0); Transferrin < 80 mg/dL (206-381)
--- NOTE | 2024-01-08 08:02 | PM.IMPN ---
Progress Note: A&P Assessment and Plan (1) Hypokalemia: Code(s): E87.6 - Hypokalemia Status: Acute (2) Protein calorie malnutrition: Code(s): E46 - Unspecified protein-calorie malnutrition Status: Acute (3) Weight loss: Code(s): R63.4 - Abnormal weight loss Status: Acute (4) Iron deficiency anemia: Code(s): D50.9 - Iron deficiency anemia, unspecified Status: Acute (5) Electrolyte abnormality: Code(s): E87.8 - Other disorders of electrolyte and fluid balance, not elsewhere classified Status: Acute (6) Malnutrition related to chronic disease: Code(s): E46 - Unspecified protein-calorie malnutrition Status: Acute (7) COPD (chronic obstructive pulmonary disease): Code(s): J44.9 - Chronic obstructive pulmonary disease, unspecified Status: Acute (8) Colonic mass: Code(s): K63.89 - Other specified diseases of intestine Status: Acute (9) Septic shock: Code(s): A41.9 - Sepsis, unspecified organism; R65.21 - Severe sepsis with septic shock Status: Acute (10) Hypotension: Code(s): I95.9 - Hypotension, unspecified Status: Acute (11) Tobacco abuse: Code(s): Z72.0 - Tobacco use Status: Acute (12) Chronic alcohol abuse: Code(s): F10.10 - Alcohol abuse, uncomplicated Status: Acute (13) Hypoalbuminemia: Code(s): E88.09 - Other disorders of plasma-protein metabolism, not elsewhere classified Status: Acute Plan 78-year-old male with a past medical history distant alcohol abuse, tobacco abuse BPH, GERD, COPD, psychiatric disorder, depression presents from [facility] after being found down on the ground. He was treated for septic shock of unknown origin. Further evaluation reveals a severe protein calorie malnutrition with weight loss and cachexia. A sigmoidoscopy conducted demonstrating primary a dental carcinoma of the transverse colon primary lesion 17 cm mass #primary adenocarcinoma of transverse colon -biopsy from sigmoidoscopy, tissue shows adenocarcinoma.? CT abdomen pelvis inches does not show metastasis.? primary lesion 17 cm mass -consult to oncology:? likely localized cancer, no sign of metastasis on imaging -CEA 1070, will need outpatient PET scan as per oncology - plan for continuing nutritional supplementation and outpatient follow-up with surgery for planned outpatient colectomy in next few weeks (this is to minimize surgical risk) -? Patient will need weekly CMP, prealbumin and transferrin - patient is tolerating p.o. intake drinking Ensure, TPN is a consideration although have not had to institute this up to now. - he will need outpatient follow up with surgery to arrange for colectomy and tumor resection dehydration Blood pressure low, tachycardia tachypnea Normal saline 500 mL bolus, start normal saline IV blood pressure stable now # severe protein calorie malnutrition -ensure to meals TID -weight loss,? muscle wasting, appears cachectic - malnutrition secondary to cancer #Multifactorial anemia -iron deficiency anemia: Received IV iron, plan to discharge on 325mg BID Fe -he has had borderline and wavering hypotension. He received q.6 albumin infusions which improved his blood pressure and his serum albumin improved. -on 01/05 hemoglobin 6.9. Transfuse 1 unit PRBC and recheck hemoglobin afterwards. Stool occult obtained and pending however is likely positive due to his colon mass. 01/06: occult blood negative, hemoglobin stable after blood transfusion #septic shock on presentation -septic shock on 12/21, has resolved -completed ABx #Acute hypokalemia -likely due to inadequate oral intake. Place and recheck corrected #Chronic conditions -COPD -depression: celexa, seroquel -neuropathy: gabapentin -BPH: doxazosin -GERD: protonix -HLD: statin -insomnia: trazodone Diet:?bland low fiber diet, saline lock IV DVT ppx:? Lovenox discontinued due to ane
[2024-01-08 08:12] LABS: Hematocrit 31.3 % (42.0-52.0); Hemoglobin 9.4 g/dL (14.0-18.0); Mean Corpuscular Hemoglobin 26.8 pg (26-34); Mean Corpuscular Volume 89.2 fl (80-100); Mean Platelet Volume 10.2 fl (7.4-10.4); Platelet Count Result 324 k/mm3 (150-375); Red Blood Count 3.51 M/mm3 (4.6-6.20); Red Cell Distribution Width 17.7 % (11.5-14.5); White Blood Count 10.7 K/mm3 (4.5-10.0)
[2024-01-08 08:44] LABS: Alanine Aminotransferase 14 U/L (6-50); Albumin Level 3.3 g/dL (3.5-5.1); Alkaline Phosphatase 162 U/L (38-126); Anion Gap 9 mmol/L (4-12); Aspartate Amino Transferase 25 U/L (17-59); Bilirubin,Total 1.6 mg/dL (0.2-1.3); Blood Urea Nitrogen 23 mg/dL (9-20); Calcium 9.4 mg/dL (8.4-10.2); Carbon Dioxide 23 mmol/L (22-30); Chloride 108 mmol/L (98-107); Estimated CRCL calculation 64 ml/min; Estimated Glomerular Filt Rate > 60; Glucose 117 mg/dL (65-110); Potassium 3.6 mmol/L (3.4-5.0); Sodium 140 mmol/L (137-145)
--- NOTE | 2024-01-08 08:52 | PM.PNGS ---
Progress Note: A&P Assessment and Plan (1) Malnutrition related to chronic disease: Code(s): E46 - Unspecified protein-calorie malnutrition Status: Acute Assessment and Plan: Pre-albumin and transferrin levels no better. Patient is not a good surgical candidate as he would have a high likelihood of mortality. Hospice should be considered. (2) Colon cancer: Qualifiers: Colon location: transverse Qualified Code(s): C18.4 - Malignant neoplasm of transverse colon Code(s): C18.9 - Malignant neoplasm of colon, unspecified Status: Acute Subjective Subjective Date/Time Seen: 01/08/24 08:52 Objective Data Vital Signs Vital Signs: Vital Signs - 24 hr 01/07/24 09:34 01/07/24 11:29 01/07/24 13:57 Temperature 36.9 C Pulse Rate 107 H Respiratory Rate 20 Blood Pressure 100/50 L Pulse Oximetry 93 95 Oxygen Delivery Nasal Cannula Nasal Cannula Oxygen Flow Rate 2 1 Fraction of Inspired Oxygen 01/07/24 22:00 01/07/24 20:00 01/08/24 06:00 Temperature 36.4 C 37.7 C H Pulse Rate 107 H 114 H Respiratory Rate 20 30 H Blood Pressure 124/78 102/52 L Pulse Oximetry 94 94 92 Oxygen Delivery Nasal Cannula Oxygen Flow Rate 1 Fraction of Inspired Oxygen 01/08/24 08:40 Temperature Pulse Rate Respiratory Rate Blood Pressure Pulse Oximetry 90 Oxygen Delivery Room Air Oxygen Flow Rate Fraction of Inspired Oxygen 21 Intake/Output Intake/Output: Intake & Output 01/05/24 01/06/24 01/07/24 01/08/24 23:59 23:59 23:59 23:59 Intake Total 908 1540 636 450 Output Total 400 300 Balance 908 1540 236 150 Meds/Results Medications: Active Medications Generic Name Dose Route Start Last Admin Trade Name Freq PRN Reason Stop Dose Admin Acetaminophen 650 mg 12/22/23 20:09 01/06/24 05:59 Acetaminophen 325 Mg Tablet PO 650 mg Q4H PRN Administration Mild Pain (1-3) or Fever Albuterol/Ipratropium 3 ml 12/23/23 08:49 Ipratropium 0.5 Mg/Albuterol Sulfate 2.5 Mg Ampul.Neb 3 Ml INHALATION Q6HRT PRN Wheezing or shortness of breath Citalopram Hydrobromide 10 mg 01/01/24 09:00 01/07/24 10:08 Citalopram Hydrobromide 10 Mg Tablet PO 10 mg DAILY AQUILES Administration Doxazosin Mesylate 4 mg 12/31/23 12:50 01/07/24 10:08 Doxazosin Mesylate 4 Mg Tablet PO 4 mg DAILY AQUILES Administration Ferrous Sulfate 325 mg 12/31/23 17:00 01/07/24 18:15 Ferrous Sulfate [address] PO 325 mg BID AQUILES Administration Gabapentin 300 mg 12/31/23 18:00 01/07/24 18:15 Gabapentin 300 Mg Capsule PO 01/30/24 17:59 300 mg QPM AQUILES Administration Ondansetron HCl 4 mg 12/22/23 20:09 12/26/23 08:13 Ondansetron Inj 4 Mg/2 Ml Vial IV PUSH 4 mg Q4H PRN Administration Nausea Pantoprazole Sodium 40 mg 01/01/24 09:00 01/07/24 10:08 Pantoprazole 40 Mg Tablet PO 40 mg QAM AQUILES Administration Quetiapine Fumarate 25 mg 01/01/24 09:00 01/07/24 10:08 Quetiapine Fumarate 25 Mg Tablet PO 25 mg QAM AQUILES Administration Quetiapine Fumarate 400 mg 12/31/23 21:00 01/07/24 21:13 Quetiapine Fumarate Xr 200 Mg Tab.Er.24h PO 400 mg HS AQUILES Administration Rosuvastatin Calcium 20 mg 01/01/24 09:00 01/07/24 10:07 Rosuvastatin 10 Mg Tablet PO 20 mg DAILY AQUILES Administration Sodium Chloride 10 ml 01/04/24 22:00 01/08/24 05:55 Saline Lock Flush IV PUSH Not Given Q8HR AQUILES Sodium Chloride 10 ml 01/04/24 18:41 Saline Lock Flush IV PUSH PRN PRN Flush Sodium Chloride 20 ml 01/04/24 18:41 Saline Lock Flush IV PUSH PRN PRN after blood draws Thiamine HCl 100 mg 12/23/23 09:00 01/07/24 10:07 Thiamine Hcl 200 Mg/2 Ml Vial IV PUSH 100 mg DAILY AQUILES Administration Trazodone HCl 100 mg 12/31/23 12:44 Trazodone Hcl 50 Mg Tablet PO HS PRN Insomnia Radiology Results: ITS Impressions Hip/Pelvis X-Ray 12/22/23 14:1
[2024-01-08] MEDS: QUEtiapine FUMARATE 25 MG TABLET PO (09:14)
[2024-01-08] MEDS: ROSUVASTATIN 10 MG TABLET 20 MG PO (09:14)
[2024-01-08] MEDS: CITALOPRAM HYDROBROMIDE 10 MG TABLET PO (09:14)
[2024-01-08] MEDS: THIAMINE HCL 200 MG/2 ML VIAL 100 MG IV PUSH (09:15)
[2024-01-08] MEDS: FERROUS SULFATE 325 MG TABLET DR PO ×2 (09:15→18:35)
[2024-01-08] MEDS: PANTOPRAZOLE 40 MG TABLET PO (09:15)
[2024-01-08] MEDS: SODIUM CHLORIDE 0.9% IV 500 ML IV CONT (10:31)
[2024-01-08] MEDS: SODIUM CHLORIDE 0.9% IV 1,000 ML 125 ML IV CONT ×2 (11:35→20:55)
--- NOTE | 2024-01-08 15:35 | PCOTNOTE ---
Attempted to see pt. for occupational therapy reevaluation. Pt. is minimally responsive at this time. Nursing present and in agreement to allow pt. to rest. Following
[2024-01-08 16:00] LABS: Appearance Urine Turbid (Clear); Bacteria Urine None Seen /hpf; Bilirubin Urine Negative (Negative); Blood Urine Trace (Negative); Color Urine Dark Yellow (Yellow); Glucose Urine UA Negative (Negative); Ketones Urine Negative (Negative); Leukocyte Esterase Ur 1+ LEU/UL (Negative); Mucus Urine Present /lpf; Need Manual Microscopic Reviewed; Nitrate Urine Negative (Negative); Non Pathogenic Casts >20; Protein Urine 1+ mg/dL (Negative); RBC Urine 0-2 /hpf (0-2); Specific Grav Ur 1.017 (1.001-1.035); Squamous Epithelial Cell Urine Few /hpf (Few)
[2024-01-08 16:03] LABS: Add Urine Microscopic? YES
[2024-01-08] MEDS: GABAPENTIN 300 MG CAPSULE PO (18:35)
[2024-01-08] MEDS: QUEtiapine FUMARATE XR 200 MG TAB.ER.24H 400 MG PO (20:55)
[2024-01-09] MEDS: SODIUM CHLORIDE 0.9% IV 1,000 ML 125 ML IV CONT ×3 (05:24→21:08)
[2024-01-09 05:35] VITALS: BP 129/55; PULSE 110; RESP 36; TEMP 37.6; O2SAT 93
--- NOTE | 2024-01-09 08:33 | PM.IMPN ---
Progress Note: A&P Assessment and Plan (1) Hypokalemia: Code(s): E87.6 - Hypokalemia Status: Acute (2) Protein calorie malnutrition: Code(s): E46 - Unspecified protein-calorie malnutrition Status: Acute (3) Weight loss: Code(s): R63.4 - Abnormal weight loss Status: Acute (4) Iron deficiency anemia: Code(s): D50.9 - Iron deficiency anemia, unspecified Status: Acute (5) Electrolyte abnormality: Code(s): E87.8 - Other disorders of electrolyte and fluid balance, not elsewhere classified Status: Acute (6) Malnutrition related to chronic disease: Code(s): E46 - Unspecified protein-calorie malnutrition Status: Acute (7) COPD (chronic obstructive pulmonary disease): Code(s): J44.9 - Chronic obstructive pulmonary disease, unspecified Status: Acute (8) Colonic mass: Code(s): K63.89 - Other specified diseases of intestine Status: Acute (9) Septic shock: Code(s): A41.9 - Sepsis, unspecified organism; R65.21 - Severe sepsis with septic shock Status: Acute (10) Hypotension: Code(s): I95.9 - Hypotension, unspecified Status: Acute (11) Tobacco abuse: Code(s): Z72.0 - Tobacco use Status: Acute (12) Chronic alcohol abuse: Code(s): F10.10 - Alcohol abuse, uncomplicated Status: Acute (13) Hypoalbuminemia: Code(s): E88.09 - Other disorders of plasma-protein metabolism, not elsewhere classified Status: Acute Plan 78-year-old male with a past medical history distant alcohol abuse, tobacco abuse BPH, GERD, COPD, psychiatric disorder, depression presents from [facility] after being found down on the ground. He was treated for septic shock of unknown origin. Further evaluation reveals a severe protein calorie malnutrition with weight loss and cachexia. A sigmoidoscopy conducted demonstrating primary a dental carcinoma of the transverse colon primary lesion 17 cm mass #primary adenocarcinoma of transverse colon -biopsy from sigmoidoscopy, tissue shows adenocarcinoma.? CT abdomen pelvis inches does not show metastasis.? primary lesion 17 cm mass -consult to oncology:? likely localized cancer, no sign of metastasis on imaging -CEA 1070, will need outpatient PET scan as per oncology - plan for continuing nutritional supplementation and outpatient follow-up with surgery for planned outpatient colectomy in next few weeks (this is to minimize surgical risk) -? Patient will need weekly CMP, prealbumin and transferrin - patient is tolerating p.o. intake drinking Ensure, TPN is a consideration although have not had to institute this up to now. - he will need outpatient follow up with surgery to arrange for colectomy and tumor resection dehydration Blood pressure low, tachycardia tachypnea Normal saline 500 mL bolus, start normal saline IV blood pressure stable now UTI and sepsis 01/08 patient has low-grade fever 99.9 over the night, leukocytosis leukocytosis, tachycardia tachypnea, suspecting sepsis due to UTI UA shows cloudy urine, pyuria chest x-ray shows no acute cardiopulmonary issues s/w ceftriaxone IV 1 g daily Follow urine culture, blood culture # severe protein calorie malnutrition -ensure to meals TID -weight loss,? muscle wasting, appears cachectic - malnutrition secondary to cancer #Multifactorial anemia -iron deficiency anemia: Received IV iron, plan to discharge on 325mg BID Fe -he has had borderline and wavering hypotension. He received q.6 albumin infusions which improved his blood pressure and his serum albumin improved. -on 01/05 hemoglobin 6.9. Transfuse 1 unit PRBC and recheck hemoglobin afterwards. Stool occult obtained and pending however is likely positive due to his colon mass. 01/06: occult blood negative, hemoglobin stable after blood transfusion #septic shock on presentation -septic shock on 12/21, has resolved -completed ABx #Acute hypokalemia -like
[2024-01-09 09:10] VITALS: O2SAT 96
[2024-01-09] MEDS: FERROUS SULFATE 325 MG TABLET DR PO ×2 (09:14→17:06)
[2024-01-09] MEDS: ROSUVASTATIN 10 MG TABLET 20 MG PO (09:14)
[2024-01-09] MEDS: DOXAZOSIN MESYLATE 4 MG TABLET PO (09:14)
[2024-01-09] MEDS: CITALOPRAM HYDROBROMIDE 10 MG TABLET PO (09:14)
[2024-01-09] MEDS: PANTOPRAZOLE 40 MG TABLET PO (09:14)
[2024-01-09] MEDS: QUEtiapine FUMARATE 25 MG TABLET PO (09:14)
[2024-01-09 09:34] LABS: Hematocrit 28.1 % (42.0-52.0); Hemoglobin 8.5 g/dL (14.0-18.0); Mean Corpuscular HGB Conc 30.2 g/dl (32-36); Mean Corpuscular Hemoglobin 26.7 pg (26-34); Mean Corpuscular Volume 88.4 fl (80-100); Mean Platelet Volume 9.3 fl (7.4-10.4); Platelet Count Result 329 k/mm3 (150-375); Red Blood Count 3.18 M/mm3 (4.6-6.20); Red Cell Distribution Width 17.2 % (11.5-14.5); White Blood Count 12.4 K/mm3 (4.5-10.0)
[2024-01-09 09:46] LABS: Alanine Aminotransferase 13 U/L (6-50); Alkaline Phosphatase 174 U/L (38-126); Anion Gap 7 mmol/L (4-12); Aspartate Amino Transferase 26 U/L (17-59); Bilirubin,Total 1.8 mg/dL (0.2-1.3); Blood Urea Nitrogen 20 mg/dL (9-20); Calcium 8.8 mg/dL (8.4-10.2); Carbon Dioxide 23 mmol/L (22-30); Chloride 113 mmol/L (98-107); Estimated CRCL calculation 62 ml/min; Estimated Glomerular Filt Rate > 60; Glucose 112 mg/dL (65-110); Potassium 3.2 mmol/L (3.4-5.0); Sodium 143 mmol/L (137-145)
[2024-01-09] MEDS: THIAMINE HCL 200 MG/2 ML VIAL 100 MG IV PUSH (10:08)
--- NOTE | 2024-01-09 10:21 | PCNFU ---
Nutrition Follow-Up Complete: Severe Protein Calorie Malnutrition as related to inadequate protein energy intake with increased protein-energy needs in setting of chronic disease (cancer) as evidenced by minimal oral intake for > 1-2 months, significant weight loss of 28% (49 ibs) in 2 months: severe muscle wasting (temporalis, clavicle region) and severe subcutaneous fat loss (orbital fat pads, ribs) Meet estimanted nutritional needs - Goal is not being met with intakes 10-40%. Goal: Pt current nutrition is Alpine diet. Ensure Enlive TID for additional 350 kcal and 20 g protein each. Nutrition recommendation: No new nutrition recommendations. Continue current care plan. Consult if family decides on nutrition support. Last recorded weight is 56.6 kg. Bowel Motility: +1 BM 01/09/24 Labs Reviewed: Alb 3.0, K+ 3.2, Glu 112 Meds Noted: Heparin, thiamine, protonix Skin: No pressure Additional Notes: Per GI, pt not a surgical candidate and recommends hospice consult. Intakes are poor to fair. Continue current care plan and orders Will monitor weight, labs, skin, meds, oral intake every 3 days.
[2024-01-09 10:38] LABS: Band Neutrophils Percent 10 % (0-6); Eosinophils Absolute Manual 0.12 K/mm3 (0.02-0.50); Eosinophils Percent Manual 1 % (0-4); Lymphocytes Absolute Manual 1.86 K/mm3 (1.1-4.5); Monocytes Absolute Manual 1.36 K/mm3 (0.1-0.90); Monocytes Percent Manual 11 % (3-9); Neutrophils Absolute Manual 9.05 K/mm3 (1.3-6.7); Neutrophils Percent Manual 63 % (46-73); Platelet Estimate Adequate (Adequate); Total Cells Counted 100
[2024-01-09 10:42] LABS: Hypochromasia 2+; Schistocytes Rare; Target Cells 1+
[2024-01-09 10:43] LABS: Anisocytosis 1+
[2024-01-09 14:00] VITALS: BP 103/46; PULSE 54; RESP 18; TEMP 36.6; O2SAT 96
[2024-01-09] MEDS: GABAPENTIN 300 MG CAPSULE PO (17:07)
[2024-01-09] MEDS: QUEtiapine FUMARATE XR 200 MG TAB.ER.24H 400 MG PO (21:00)
[2024-01-09] MEDS: traZODone HCL 50 MG TABLET 100 MG PO (21:07)
[2024-01-09] MEDS: SALINE LOCK FLUSH 10 ML IV PUSH (21:07)
[2024-01-09 21:15] VITALS: BP 115/78; PULSE 102; RESP 20; TEMP 37.4; O2SAT 94
[2024-01-10 05:00] VITALS: BP 126/73; PULSE 101; RESP 22; TEMP 37; O2SAT 96
[2024-01-10 08:30] VITALS: PULSE 101; RESP 22; O2SAT 96
[2024-01-10] MEDS: SODIUM CHLORIDE 0.9% IV 1,000 ML 125 ML IV CONT ×2 (08:45→17:19)
--- NOTE | 2024-01-10 08:54 | PC.NURSE ---
pt very sleepy this morning, not waking up for breakfast, OT to room to attempt to work with him, IV meds administered will give PO meds after he is able to eat a little bit
[2024-01-10] MEDS: ROSUVASTATIN 10 MG TABLET 20 MG PO (09:48)
[2024-01-10] MEDS: FERROUS SULFATE 325 MG TABLET DR PO ×2 (09:48→17:21)
[2024-01-10] MEDS: PANTOPRAZOLE 40 MG TABLET PO (09:48)
[2024-01-10] MEDS: CITALOPRAM HYDROBROMIDE 10 MG TABLET PO (09:48)
[2024-01-10] MEDS: DOXAZOSIN MESYLATE 4 MG TABLET PO (09:48)
[2024-01-10] MEDS: THIAMINE HCL 200 MG/2 ML VIAL 100 MG IV PUSH (09:50)
[2024-01-10 09:54] LABS: Basophils Absolute Auto 0.1 K/mm3 (0.0-0.1); Basophils Percent Auto 0.6 % (0.2-1.2); Eosinophils Absolute Auto 0.1 K/mm3 (0-0.3); Eosinophils Percent Auto 0.9 % (0-4.4); Hemoglobin 8.4 g/dL (14.0-18.0); Immature Granulocyte Absolute 0.18 K/mm3 (0.00-0.031); Immature Granulocyte Percent A 1.4 % (0-0.5); Lymphocytes Absolute Auto 1.27 K/mm3 (0.9-3.2); Mean Corpuscular Hemoglobin 26.8 pg (26-34); Mean Corpuscular Volume 89.5 fl (80-100); Mean Platelet Volume 9.6 fl (7.4-10.4); Monocytes Absolute Auto 1.3 K/mm3 (0.1-0.6); Monocytes Percent Auto 10.3 % (2.6-8.5); Neutrophils Absolute Auto 9.8 K/mm3 (1.3-6.7); Neutrophils Percent Auto 76.8 % (45.5-73.1); Platelet Count Result 299 k/mm3 (150-375); Red Blood Count 3.13 M/mm3 (4.6-6.20); Red Cell Distribution Width 17.4 % (11.5-14.5); White Blood Count 12.8 K/mm3 (4.5-10.0)
[2024-01-10 14:00] VITALS: BP 116/67; PULSE 100; RESP 36; TEMP 36.5; O2SAT 94
--- NOTE | 2024-01-10 16:49 | PM.IMPN ---
Progress Note: A&P Assessment and Plan (1) Hypokalemia: Code(s): E87.6 - Hypokalemia Status: Acute (2) Protein calorie malnutrition: Code(s): E46 - Unspecified protein-calorie malnutrition Status: Acute (3) Weight loss: Code(s): R63.4 - Abnormal weight loss Status: Acute (4) Iron deficiency anemia: Code(s): D50.9 - Iron deficiency anemia, unspecified Status: Acute (5) Electrolyte abnormality: Code(s): E87.8 - Other disorders of electrolyte and fluid balance, not elsewhere classified Status: Acute (6) Malnutrition related to chronic disease: Code(s): E46 - Unspecified protein-calorie malnutrition Status: Acute (7) COPD (chronic obstructive pulmonary disease): Code(s): J44.9 - Chronic obstructive pulmonary disease, unspecified Status: Acute (8) Colonic mass: Code(s): K63.89 - Other specified diseases of intestine Status: Acute (9) Septic shock: Code(s): A41.9 - Sepsis, unspecified organism; R65.21 - Severe sepsis with septic shock Status: Acute (10) Hypotension: Code(s): I95.9 - Hypotension, unspecified Status: Acute (11) Tobacco abuse: Code(s): Z72.0 - Tobacco use Status: Acute (12) Chronic alcohol abuse: Code(s): F10.10 - Alcohol abuse, uncomplicated Status: Acute (13) Hypoalbuminemia: Code(s): E88.09 - Other disorders of plasma-protein metabolism, not elsewhere classified Status: Acute Plan 78-year-old male with a past medical history distant alcohol abuse, tobacco abuse BPH, GERD, COPD, psychiatric disorder, depression presents from [facility] after being found down on the ground. He was treated for septic shock of unknown origin. Further evaluation reveals a severe protein calorie malnutrition with weight loss and cachexia. A sigmoidoscopy conducted demonstrating primary a dental carcinoma of the transverse colon primary lesion 17 cm mass #primary adenocarcinoma of transverse colon -biopsy from sigmoidoscopy, tissue shows adenocarcinoma.? CT abdomen pelvis inches does not show metastasis.? primary lesion 17 cm mass -consult to oncology:? likely localized cancer, no sign of metastasis on imaging -CEA 1070, will need outpatient PET scan as per oncology - plan for continuing nutritional supplementation and outpatient follow-up with surgery for planned outpatient colectomy in next few weeks (this is to minimize surgical risk) -? Patient will need weekly CMP, prealbumin and transferrin - patient is tolerating p.o. intake drinking Ensure, TPN is a consideration although have not had to institute this up to now. - he will need outpatient follow up with surgery to arrange for colectomy and tumor resection On 01/09 hospice consult placed. dehydration Blood pressure low, tachycardia tachypnea Normal saline 500 mL bolus, start normal saline IV blood pressure stable now continue fluids for now. He is still tachycardic. UTI and sepsis 01/08 patient has low-grade fever 99.9 over the night, leukocytosis leukocytosis, tachycardia tachypnea, suspecting sepsis due to UTI UA shows cloudy urine, pyuria chest x-ray shows no acute cardiopulmonary issues s/w ceftriaxone IV 1 g daily Follow urine culture, blood culture. Urine culture added on 01/09. Check procalcitonin in the morning. # severe protein calorie malnutrition -ensure to meals TID -weight loss,? muscle wasting, appears cachectic - malnutrition secondary to cancer #Multifactorial anemia -iron deficiency anemia: Received IV iron, plan to discharge on 325mg BID Fe -he has had borderline and wavering hypotension. He received q.6 albumin infusions which improved his blood pressure and his serum albumin improved. -on 01/05 hemoglobin 6.9. Transfuse 1 unit PRBC and recheck hemoglobin afterwards. Stool occult obtained and pending however is likely positive due to his colon mass. 01/06: occult blood negative, h
[2024-01-10] MEDS: GABAPENTIN 300 MG CAPSULE PO (17:21)
[2024-01-10 17:22] LABS: Basophils Absolute Auto 0.1 K/mm3 (0.0-0.1); Basophils Percent Auto 0.5 % (0.2-1.2); Eosinophils Absolute Auto 0.1 K/mm3 (0-0.3); Eosinophils Percent Auto 0.7 % (0-4.4); Hematocrit 27.3 % (42.0-52.0); Hemoglobin 8.2 g/dL (14.0-18.0); Immature Granulocyte Absolute 0.22 K/mm3 (0.00-0.031); Immature Granulocyte Percent A 1.7 % (0-0.5); Lymphocytes Absolute Auto 0.92 K/mm3 (0.9-3.2); Lymphocytes Percent Auto 7.2 % (18.3-44.2); Mean Corpuscular Volume 89.8 fl (80-100); Mean Platelet Volume 9.4 fl (7.4-10.4); Monocytes Absolute Auto 1.2 K/mm3 (0.1-0.6); Monocytes Percent Auto 9.5 % (2.6-8.5); Neutrophils Absolute Auto 10.3 K/mm3 (1.3-6.7); Neutrophils Percent Auto 80.4 % (45.5-73.1); Platelet Count Result 284 k/mm3 (150-375); Red Blood Count 3.04 M/mm3 (4.6-6.20); Red Cell Distribution Width 17.2 % (11.5-14.5); White Blood Count 12.8 K/mm3 (4.5-10.0)
[2024-01-10 17:35] LABS: Anion Gap 6 mmol/L (4-12); Blood Urea Nitrogen 13 mg/dL (9-20); Calcium 8.4 mg/dL (8.4-10.2); Carbon Dioxide 24 mmol/L (22-30); Chloride 111 mmol/L (98-107); Estimated CRCL calculation 91 ml/min; Estimated Glomerular Filt Rate > 60; Glucose 144 mg/dL (65-110); Magnesium 2.1 mg/dL (1.6-2.3); Potassium 2.8 mmol/L (3.4-5.0); Sodium 141 mmol/L (137-145)
[2024-01-10] MEDS: POTASSIUM CHLORIDE 20 MEQ ER TABLET 40 MEQ PO (18:29)
[2024-01-10] MEDS: POTASSIUM CHLORIDE INJ 40 MEQ in SODIUM CHLORIDE 0.9% IV 500 ML 130 MEQ IVPB (18:29)
[2024-01-10 20:00] VITALS: O2SAT 94
[2024-01-10] MEDS: QUEtiapine FUMARATE XR 200 MG TAB.ER.24H 400 MG PO (20:27)
[2024-01-10 20:51] VITALS: O2SAT 94
[2024-01-10 22:00] VITALS: BP 114/58; PULSE 105; RESP 22; TEMP 36.6; O2SAT 96
[2024-01-11 06:00] VITALS: BP 131/66; PULSE 88; RESP 18; TEMP 36.8; O2SAT 97
[2024-01-11 06:19] LABS: Basophils Absolute Auto 0.1 K/mm3 (0.0-0.1); Basophils Percent Auto 0.8 % (0.2-1.2); Eosinophils Absolute Auto 0.1 K/mm3 (0-0.3); Eosinophils Percent Auto 0.7 % (0-4.4); Hematocrit 28.7 % (42.0-52.0); Hemoglobin 8.2 g/dL (14.0-18.0); Immature Granulocyte Absolute 0.19 K/mm3 (0.00-0.031); Immature Granulocyte Percent A 1.6 % (0-0.5); Lymphocytes Absolute Auto 0.97 K/mm3 (0.9-3.2); Mean Corpuscular HGB Conc 28.6 g/dl (32-36); Mean Corpuscular Hemoglobin 26.6 pg (26-34); Mean Corpuscular Volume 93.2 fl (80-100); Mean Platelet Volume 10.9 fl (7.4-10.4); Monocytes Absolute Auto 1.2 K/mm3 (0.1-0.6); Monocytes Percent Auto 9.6 % (2.6-8.5); Neutrophils Absolute Auto 9.6 K/mm3 (1.3-6.7); Neutrophils Percent Auto 79.3 % (45.5-73.1); Platelet Count Result 165 k/mm3 (150-375); Red Blood Count 3.08 M/mm3 (4.6-6.20); Red Cell Distribution Width 17.4 % (11.5-14.5); White Blood Count 12.1 K/mm3 (4.5-10.0)
[2024-01-11 06:31] LABS: Anion Gap 3 mmol/L (4-12); Blood Urea Nitrogen 10 mg/dL (9-20); Calcium 8.3 mg/dL (8.4-10.2); Carbon Dioxide 24 mmol/L (22-30); Chloride 113 mmol/L (98-107); Estimated CRCL calculation 91 ml/min; Estimated Glomerular Filt Rate > 60; Glucose 130 mg/dL (65-110); Magnesium 2.3 mg/dL (1.6-2.3); Potassium 3.4 mmol/L (3.4-5.0); Sodium 140 mmol/L (137-145)
[2024-01-11 06:48] LABS: Procalcitonin 1.3 ng/mL
[2024-01-11 06:56] LABS: Anisocytosis 1+; Hypochromasia 1+; Platelet Estimate Adequate (Adequate); Schistocytes None Seen
[2024-01-11] MEDS: DOXAZOSIN MESYLATE 4 MG TABLET PO (09:00)
[2024-01-11] MEDS: QUEtiapine FUMARATE 25 MG TABLET PO (09:00)
[2024-01-11] MEDS: PANTOPRAZOLE 40 MG TABLET PO (09:00)
[2024-01-11] MEDS: ROSUVASTATIN 10 MG TABLET 20 MG PO (09:00)
[2024-01-11] MEDS: FERROUS SULFATE 325 MG TABLET DR PO ×2 (09:00→17:05)
[2024-01-11] MEDS: CITALOPRAM HYDROBROMIDE 10 MG TABLET PO (09:00)
[2024-01-11] MEDS: THIAMINE HCL 200 MG/2 ML VIAL 100 MG IV PUSH (09:07)
[2024-01-11 14:00] VITALS: BP 101/70; PULSE 105; RESP 20; TEMP 36.7; O2SAT 93
--- NOTE | 2024-01-11 15:23 | PM.IMPN ---
Progress Note: A&P Assessment and Plan (1) Hypokalemia: Code(s): E87.6 - Hypokalemia Status: Acute (2) Protein calorie malnutrition: Code(s): E46 - Unspecified protein-calorie malnutrition Status: Acute (3) Weight loss: Code(s): R63.4 - Abnormal weight loss Status: Acute (4) Iron deficiency anemia: Code(s): D50.9 - Iron deficiency anemia, unspecified Status: Acute (5) Electrolyte abnormality: Code(s): E87.8 - Other disorders of electrolyte and fluid balance, not elsewhere classified Status: Acute (6) Malnutrition related to chronic disease: Code(s): E46 - Unspecified protein-calorie malnutrition Status: Acute (7) COPD (chronic obstructive pulmonary disease): Code(s): J44.9 - Chronic obstructive pulmonary disease, unspecified Status: Acute (8) Colonic mass: Code(s): K63.89 - Other specified diseases of intestine Status: Acute (9) Septic shock: Code(s): A41.9 - Sepsis, unspecified organism; R65.21 - Severe sepsis with septic shock Status: Acute (10) Hypotension: Code(s): I95.9 - Hypotension, unspecified Status: Acute (11) Tobacco abuse: Code(s): Z72.0 - Tobacco use Status: Acute (12) Chronic alcohol abuse: Code(s): F10.10 - Alcohol abuse, uncomplicated Status: Acute (13) Hypoalbuminemia: Code(s): E88.09 - Other disorders of plasma-protein metabolism, not elsewhere classified Status: Acute Plan 78-year-old male with a past medical history distant alcohol abuse, tobacco abuse, BPH, GERD, COPD, psychiatric disorder, depression presents from [facility] after being found down on the ground. He was treated for septic shock of unknown origin. Further evaluation reveals a severe protein calorie malnutrition with weight loss and cachexia. A sigmoidoscopy conducted demonstrating primary a dental carcinoma of the transverse colon primary lesion 17 cm mass January 10: Pre albumin and transferrin levels low. Hospice referral made. Patient has persistent although mild leukocytosis. Analysis not remarkable although urine culture pending. Repeat chest x-ray unremarkable except for some mild pulmonary edema. Pending quad screen. He is currently on ceftriaxone. Will discontinue fluids and avoid diuresis as he is severely malnourished. In regards to that, prealbumin and transferrin is low and surgery has commended hospice care which a consultation has been placed. He is likely losing blood via the colon tumor continue to monitor hemoglobin. #primary adenocarcinoma of transverse colon -biopsy from sigmoidoscopy, tissue shows adenocarcinoma.? CT abdomen pelvis inches does not show metastasis.? primary lesion 17 cm mass -consult to oncology:? likely localized cancer, no sign of metastasis on imaging -CEA 1070, will need outpatient PET scan as per oncology -plan for continuing nutritional supplementation and outpatient follow-up with surgery for planned outpatient colectomy in next few weeks (this is to minimize surgical risk) -Patient will need weekly CMP, prealbumin and transferrin -patient is tolerating p.o. intake drinking Ensure, TPN is a consideration although have not had to institute this up to now. -he will need outpatient follow up with surgery to arrange for colectomy and tumor resection On 01/09 hospice consult placed. dehydration Blood pressure low, tachycardia tachypnea Normal saline 500 mL bolus, start normal saline IV blood pressure stable now continue fluids for now. He is still tachycardic. UTI and sepsis 01/08 patient has low-grade fever 99.9 over the night, leukocytosis leukocytosis, tachycardia tachypnea, suspecting sepsis due to UTI UA shows cloudy urine, pyuria chest x-ray shows no acute cardiopulmonary issues s/w ceftriaxone IV 1 g daily Follow urine culture, blood culture. Urine culture added on 01/09. Check procalcitonin in the morning. #
[2024-01-11 15:43] LABS: Influenza A QL RT-PCR Negative (Negative); Influenza B QL RT-PCR Negative (Negative); RSV RNA, RT-PCR Negative (Negative); SARS-CoV-2 RNA PCR Negative (Negative)
[2024-01-11] MEDS: GABAPENTIN 300 MG CAPSULE PO (17:05)
[2024-01-11 20:54] VITALS: BP 133/72; PULSE 87; RESP 16; TEMP 36.4; O2SAT 96
[2024-01-11] MEDS: traZODone HCL 50 MG TABLET 100 MG PO (21:11)
[2024-01-11] MEDS: QUEtiapine FUMARATE XR 200 MG TAB.ER.24H 400 MG PO (21:12)
[2024-01-11] MEDS: SALINE LOCK FLUSH 10 ML IV PUSH (21:12)
[2024-01-12] VITALS (8 sets, daily range): BP systolic 90–137; BP diastolic 50–76; PULSE 89–108; RESP 16–26; TEMP 36.2–37.4; O2SAT 92–97
[2024-01-12 06:15] LABS: Basophils Absolute Auto 0.1 K/mm3 (0.0-0.1); Basophils Percent Auto 0.7 % (0.2-1.2); Eosinophils Absolute Auto 0.1 K/mm3 (0-0.3); Eosinophils Percent Auto 0.8 % (0-4.4); Hematocrit 32.7 % (42.0-52.0); Hemoglobin 9.2 g/dL (14.0-18.0); Immature Granulocyte Percent A 1.5 % (0-0.5); Lymphocytes Absolute Auto 0.99 K/mm3 (0.9-3.2); Lymphocytes Percent Auto 7.4 % (18.3-44.2); Mean Corpuscular HGB Conc 28.1 g/dl (32-36); Mean Corpuscular Hemoglobin 26.8 pg (26-34); Mean Corpuscular Volume 95.3 fl (80-100); Mean Platelet Volume 10.2 fl (7.4-10.4); Monocytes Absolute Auto 1.1 K/mm3 (0.1-0.6); Monocytes Percent Auto 8.4 % (2.6-8.5); Neutrophils Absolute Auto 10.9 K/mm3 (1.3-6.7); Neutrophils Percent Auto 81.2 % (45.5-73.1); Platelet Count Result 238 k/mm3 (150-375); Red Blood Count 3.43 M/mm3 (4.6-6.20); Red Cell Distribution Width 17.6 % (11.5-14.5); White Blood Count 13.4 K/mm3 (4.5-10.0)
[2024-01-12 06:56] LABS: Procalcitonin 0.8 ng/mL
[2024-01-12 07:08] LABS: Alanine Aminotransferase 22 U/L (6-50); Albumin Level 2.3 g/dL (3.5-5.1); Alkaline Phosphatase 327 U/L (38-126); Anion Gap 4 mmol/L (4-12); Aspartate Amino Transferase 58 U/L (17-59); Bilirubin,Total 0.8 mg/dL (0.2-1.3); Blood Urea Nitrogen 8 mg/dL (9-20); Calcium 8.3 mg/dL (8.4-10.2); Carbon Dioxide 25 mmol/L (22-30); Chloride 112 mmol/L (98-107); Estimated CRCL calculation 105 ml/min; Estimated Glomerular Filt Rate > 60; Glucose 116 mg/dL (65-110); Magnesium 2.1 mg/dL (1.6-2.3); Potassium 3.3 mmol/L (3.4-5.0); Sodium 141 mmol/L (137-145)
[2024-01-12] MEDS: ROSUVASTATIN 10 MG TABLET 20 MG PO (09:19)
[2024-01-12] MEDS: THIAMINE HCL 200 MG/2 ML VIAL 100 MG IV PUSH (09:19)
[2024-01-12] MEDS: FERROUS SULFATE 325 MG TABLET DR PO (09:19)
[2024-01-12] MEDS: PANTOPRAZOLE 40 MG TABLET PO (09:19)
[2024-01-12] MEDS: CITALOPRAM HYDROBROMIDE 10 MG TABLET PO (09:19)
[2024-01-12] MEDS: QUEtiapine FUMARATE 25 MG TABLET PO (09:21)
[2024-01-12] MEDS: DOXAZOSIN MESYLATE 4 MG TABLET PO (09:21)
[2024-01-12 09:54] LABS: Anisocytosis 1+; Hypochromasia 1+; Platelet Estimate Adequate (Adequate); Schistocytes None Seen
--- NOTE | 2024-01-12 11:06 | PM.IMPN ---
Progress Note: A&P Assessment and Plan (1) Hypokalemia: Code(s): E87.6 - Hypokalemia Status: Acute (2) Protein calorie malnutrition: Code(s): E46 - Unspecified protein-calorie malnutrition Status: Acute (3) Weight loss: Code(s): R63.4 - Abnormal weight loss Status: Acute (4) Iron deficiency anemia: Code(s): D50.9 - Iron deficiency anemia, unspecified Status: Acute (5) Electrolyte abnormality: Code(s): E87.8 - Other disorders of electrolyte and fluid balance, not elsewhere classified Status: Acute (6) Malnutrition related to chronic disease: Code(s): E46 - Unspecified protein-calorie malnutrition Status: Acute (7) COPD (chronic obstructive pulmonary disease): Code(s): J44.9 - Chronic obstructive pulmonary disease, unspecified Status: Acute (8) Colonic mass: Code(s): K63.89 - Other specified diseases of intestine Status: Acute (9) Septic shock: Code(s): A41.9 - Sepsis, unspecified organism; R65.21 - Severe sepsis with septic shock Status: Acute (10) Hypotension: Code(s): I95.9 - Hypotension, unspecified Status: Acute (11) Tobacco abuse: Code(s): Z72.0 - Tobacco use Status: Acute (12) Chronic alcohol abuse: Code(s): F10.10 - Alcohol abuse, uncomplicated Status: Acute (13) Hypoalbuminemia: Code(s): E88.09 - Other disorders of plasma-protein metabolism, not elsewhere classified Status: Acute Plan 78-year-old male with a past medical history distant alcohol abuse, tobacco abuse, BPH, GERD, COPD, psychiatric disorder, depression presents from [facility] after being found down on the ground. He was treated for septic shock of unknown origin. Further evaluation reveals a severe protein calorie malnutrition with weight loss and cachexia. A sigmoidoscopy conducted demonstrating primary a dental carcinoma of the transverse colon primary lesion 17 cm mass January 10: Pre albumin and transferrin levels low. Hospice referral made. Patient has persistent although mild leukocytosis. Analysis not remarkable although urine culture pending. Repeat chest x-ray unremarkable except for some mild pulmonary edema. Pending quad screen. He is currently on ceftriaxone. Will discontinue fluids and avoid diuresis as he is severely malnourished. In regards to that, prealbumin and transferrin is low and surgery has commended hospice care which a consultation has been placed. He is likely losing blood via the colon tumor continue to monitor hemoglobin. #primary adenocarcinoma of transverse colon -biopsy from sigmoidoscopy, tissue shows adenocarcinoma.? CT abdomen pelvis inches does not show metastasis.? primary lesion 17 cm mass -consult to oncology:? likely localized cancer, no sign of metastasis on imaging -CEA 1070, will need outpatient PET scan as per oncology -plan for continuing nutritional supplementation and outpatient follow-up with surgery for planned outpatient colectomy in next few weeks (this is to minimize surgical risk) -Patient will need weekly CMP, prealbumin and transferrin -patient is tolerating p.o. intake drinking Ensure, TPN is a consideration although have not had to institute this up to now. -he will need outpatient follow up with surgery to arrange for colectomy and tumor resection On 01/09 hospice consult placed. dehydration Blood pressure low, tachycardia tachypnea Normal saline 500 mL bolus, start normal saline IV blood pressure stable now continue fluids for now. He is still tachycardic. 01/11: BP dropped again. restart NS 100 ml/h and ns 500ml bolus UTI and sepsis 01/08 patient has low-grade fever 99.9 over the night, leukocytosis leukocytosis, tachycardia tachypnea, suspecting sepsis due to UTI UA shows cloudy urine, pyuria chest x-ray shows no acute cardiopulmonary issues s/w ceftriaxone IV 1 g daily Follow urine culture, blood culture. Urine
[2024-01-12] MEDS: SODIUM CHLORIDE 0.9% IV 500 ML 100 ML IV CONT (14:53)
[2024-01-12] MEDS: CEFEPIME 2 GM/NS 50 ML 2 GM/50 ML BAG IVPB ×2 (14:54→20:17)
[2024-01-12] MEDS: metroNIDAZOLE 500 MG/ISO 100ML 500 MG/100 ML BAG 100 MG IVPB ×2 (15:24→20:17)
[2024-01-12] MEDS: QUEtiapine FUMARATE XR 200 MG TAB.ER.24H 400 MG PO (20:17)
[2024-01-13] VITALS (7 sets, daily range): BP systolic 94–133; BP diastolic 57–70; PULSE 80–107; RESP 17–22; TEMP 36.7–37.6; O2SAT 95–97
[2024-01-13] MEDS: metroNIDAZOLE 500 MG/ISO 100ML 500 MG/100 ML BAG 100 MG IVPB ×3 (05:10→23:38)
[2024-01-13 05:27] LABS: Toxigenic C. Diff NEGATIVE (NEGATIVE)
--- NOTE | 2024-01-13 08:20 | P.PNIM_ITS ---
Progress Note: A&P Assessment and Plan (1) Hypokalemia: Code(s): E87.6 - Hypokalemia Status: Acute (2) Protein calorie malnutrition: Code(s): E46 - Unspecified protein-calorie malnutrition Status: Acute (3) Weight loss: Code(s): R63.4 - Abnormal weight loss Status: Acute (4) Iron deficiency anemia: Code(s): D50.9 - Iron deficiency anemia, unspecified Status: Acute (5) Electrolyte abnormality: Code(s): E87.8 - Other disorders of electrolyte and fluid balance, not elsewhere classified Status: Acute (6) Malnutrition related to chronic disease: Code(s): E46 - Unspecified protein-calorie malnutrition Status: Acute (7) COPD (chronic obstructive pulmonary disease): Code(s): J44.9 - Chronic obstructive pulmonary disease, unspecified Status: Acute (8) Colonic mass: Code(s): K63.89 - Other specified diseases of intestine Status: Acute (9) Septic shock: Code(s): A41.9 - Sepsis, unspecified organism; R65.21 - Severe sepsis with septic shock Status: Acute (10) Hypotension: Code(s): I95.9 - Hypotension, unspecified Status: Acute (11) Tobacco abuse: Code(s): Z72.0 - Tobacco use Status: Acute (12) Chronic alcohol abuse: Code(s): F10.10 - Alcohol abuse, uncomplicated Status: Acute (13) Hypoalbuminemia: Code(s): E88.09 - Other disorders of plasma-protein metabolism, not elsewhere classified Status: Acute Plan 78-year-old male with a past medical history distant alcohol abuse, tobacco abuse, BPH, GERD, COPD, psychiatric disorder, depression presents from [facility] after being found down on the ground. He was treated for septic shock of unknown origin. Further evaluation reveals a severe protein calorie malnutrition with weight loss and cachexia. A sigmoidoscopy conducted demonstrating primary a dental carcinoma of the transverse colon primary lesion 17 cm mass January 10: Pre albumin and transferrin levels low. Hospice referral made. Patient has persistent although mild leukocytosis. Analysis not remarkable although urine culture pending. Repeat chest x-ray unremarkable except for some mild pulmonary edema. Pending quad screen. He is currently on ceftriaxone. Will discontinue fluids and avoid diuresis as he is severely malnourished. In regards to that, prealbumin and transferrin is low and surgery has commended hospice care which a consultation has been placed. He is likely losing blood via the colon tumor continue to monitor hemoglobin. #primary adenocarcinoma of transverse colon -biopsy from sigmoidoscopy, tissue shows adenocarcinoma.? CT abdomen pelvis inches does not show metastasis.? primary lesion 17 cm mass -consult to oncology:? likely localized cancer, no sign of metastasis on imaging -CEA 1070, will need outpatient PET scan as per oncology -plan for continuing nutritional supplementation and outpatient follow-up with surgery for planned outpatient colectomy in next few weeks (this is to minimize surgical risk) -Patient will need weekly CMP, prealbumin and transferrin -patient is tolerating p.o. intake drinking Ensure, TPN is a consideration alth ough have not had to institute this up to now. -he will need outpatient follow up with surgery to arrange for colectomy and tumor resection On 01/09 hospice consult placed. dehydration Blood pressure low, tachycardia tachypnea Normal saline 500 mL bolus, start normal saline IV blood pressure stable now continue fluids for now. He is still tachycardic. 01/11: BP dropped
[2024-01-13] MEDS: CEFEPIME 2 GM/NS 50 ML 2 GM/50 ML BAG IVPB ×2 (09:00→21:08)
[2024-01-13 09:48] LABS: Alanine Aminotransferase 22 U/L (6-50); Albumin Level 2.5 g/dL (3.5-5.1); Alkaline Phosphatase 306 U/L (38-126); Anion Gap 4 mmol/L (4-12); Aspartate Amino Transferase 41 U/L (17-59); Blood Urea Nitrogen 10 mg/dL (9-20); Calcium 8.3 mg/dL (8.4-10.2); Carbon Dioxide 28 mmol/L (22-30); Chloride 107 mmol/L (98-107); Estimated CRCL calculation 90 ml/min; Estimated Glomerular Filt Rate > 60; Glucose 107 mg/dL (65-110); Potassium 2.9 mmol/L (3.4-5.0); Sodium 139 mmol/L (137-145)
[2024-01-13 09:55] LABS: Procalcitonin 0.6 ng/mL
[2024-01-13] MEDS: THIAMINE HCL 200 MG/2 ML VIAL 100 MG IV PUSH (11:00)
[2024-01-13] MEDS: ALBUMIN HUMAN 25% 25 GM/100 ML 200 ML IVPB (11:01)
[2024-01-13 15:33] LABS: Basophils Percent Auto 0.3 % (0.2-1.2); Eosinophils Absolute Auto 0.1 K/mm3 (0-0.3); Eosinophils Percent Auto 0.6 % (0-4.4); Hematocrit 25.8 % (42.0-52.0); Hemoglobin 7.8 g/dL (14.0-18.0); Immature Granulocyte Absolute 0.09 K/mm3 (0.00-0.031); Immature Granulocyte Percent A 0.9 % (0-0.5); Lymphocytes Absolute Auto 1.05 K/mm3 (0.9-3.2); Lymphocytes Percent Auto 10.1 % (18.3-44.2); Mean Corpuscular HGB Conc 30.2 g/dl (32-36); Mean Corpuscular Hemoglobin 26.8 pg (26-34); Mean Corpuscular Volume 88.7 fl (80-100); Mean Platelet Volume 9.4 fl (7.4-10.4); Monocytes Absolute Auto 0.8 K/mm3 (0.1-0.6); Neutrophils Absolute Auto 8.4 K/mm3 (1.3-6.7); Neutrophils Percent Auto 80.1 % (45.5-73.1); Platelet Count Result 261 k/mm3 (150-375); Red Blood Count 2.91 M/mm3 (4.6-6.20); Red Cell Distribution Width 17.3 % (11.5-14.5); White Blood Count 10.4 K/mm3 (4.5-10.0)
[2024-01-13 15:53] LABS: Anion Gap 2 mmol/L (4-12); Blood Urea Nitrogen 9 mg/dL (9-20); Calcium 8.2 mg/dL (8.4-10.2); Carbon Dioxide 30 mmol/L (22-30); Chloride 106 mmol/L (98-107); Estimated CRCL calculation 90 ml/min; Estimated Glomerular Filt Rate > 60; Glucose 99 mg/dL (65-110); Potassium 2.6 mmol/L (3.4-5.0); Sodium 138 mmol/L (137-145)
--- NOTE | 2024-01-13 16:03 | PCSTNOTE ---
Please refer to the Bedside Swallow Evaluation in the EMR. Please note, silent aspiration cannot be ruled out at bedside.
[2024-01-13] MEDS: POTASSIUM CHLORIDE INJ 40 MEQ in SODIUM CHLORIDE 0.9% IV 500 ML 130 MEQ IVPB (16:29)
--- NOTE | 2024-01-13 19:53 | PC.NURSE ---
Pt choked on water during AM assessment. Provider notified. Received NPO order as well as MBS. Pt temp elevated. Pt remained A/Ox1 all day.
[2024-01-13] MEDS: QUEtiapine FUMARATE XR 200 MG TAB.ER.24H 400 MG PO (21:07)
[2024-01-14] VITALS (7 sets, daily range): BP systolic 95–139; BP diastolic 50–85; PULSE 81–108; RESP 18–20; TEMP 36.1–36.7; O2SAT 92–100
[2024-01-14 00:45] LABS: Anion Gap 2 mmol/L (4-12); Blood Urea Nitrogen 8 mg/dL (9-20); Calcium 8.2 mg/dL (8.4-10.2); Carbon Dioxide 27 mmol/L (22-30); Chloride 108 mmol/L (98-107); Estimated CRCL calculation 90 ml/min; Estimated Glomerular Filt Rate > 60; Glucose 138 mg/dL (65-110); Sodium 137 mmol/L (137-145)
[2024-01-14] MEDS: POTASSIUM CHLORIDE 20 MEQ ER TABLET 40 MEQ PO (01:17)
[2024-01-14] MEDS: metroNIDAZOLE 500 MG/ISO 100ML 500 MG/100 ML BAG 100 MG IVPB ×3 (05:53→21:33)
[2024-01-14 07:05] LABS: Anion Gap 3 mmol/L (4-12); Blood Urea Nitrogen 8 mg/dL (9-20); Calcium 8.2 mg/dL (8.4-10.2); Carbon Dioxide 25 mmol/L (22-30); Chloride 109 mmol/L (98-107); Estimated CRCL calculation 110 ml/min; Estimated Glomerular Filt Rate > 60; Glucose 111 mg/dL (65-110); Potassium 3.6 mmol/L (3.4-5.0); Sodium 137 mmol/L (137-145)
[2024-01-14 07:28] LABS: Procalcitonin 0.5 ng/mL
[2024-01-14] MEDS: CEFEPIME 2 GM/NS 50 ML 2 GM/50 ML BAG IVPB ×2 (09:02→21:33)
[2024-01-14] MEDS: THIAMINE HCL 200 MG/2 ML VIAL 100 MG IV PUSH (09:02)
[2024-01-14] MEDS: FERROUS SULFATE 325 MG TABLET DR PO ×2 (09:03→18:02)
[2024-01-14] MEDS: DOXAZOSIN MESYLATE 4 MG TABLET PO (09:03)
[2024-01-14] MEDS: QUEtiapine FUMARATE 25 MG TABLET PO (09:03)
[2024-01-14] MEDS: CITALOPRAM HYDROBROMIDE 10 MG TABLET PO (09:03)
[2024-01-14] MEDS: PANTOPRAZOLE 40 MG TABLET PO (09:03)
--- NOTE | 2024-01-14 09:56 | PCNFU ---
Nutrition Follow-Up Complete: Severe Protein Calorie Malnutrition as related to inadequate protein energy intake with increased protein-energy needs in setting of chronic disease (cancer) as evidenced by minimal oral intake for > 1-2 months, significant weight loss of 28% (49 ibs) in 2 months: severe muscle wasting (temporalis, clavicle region) and severe subcutaneous fat loss (orbital fat pads, ribs) Meet estimanted nutritional needs -not meeting goal Goal: Pt current nutrition is Puree diet, moderately thick liquids. Giles diet. Ensure Compact TID for additional 220 kcal and 9 g protein each. Nutrition recommendation: No new nutrition recommendations. Continue current diet /feeding recommendations per speech. Last recorded weight is 60.9 kg. Bowel Motility: +4 BM 01/14/24 Labs Reviewed: Hgb 7.8, Hct 25.8, BUN 8, Cre 0.4 Meds Noted: Protonix Skin: No pressure injury Additional Notes: MBSS yesterday, pt cleared for puree diet and moderately thick liquids. Intakes poor. Supplements are on board. Feeding assistance as needed. Will monitor weight, labs, skin, meds, oral intake every 3 days.
[2024-01-14 10:19] LABS: Basophils Absolute Auto 0.1 K/mm3 (0.0-0.1); Basophils Percent Auto 0.5 % (0.2-1.2); Eosinophils Absolute Auto 0.1 K/mm3 (0-0.3); Eosinophils Percent Auto 1.1 % (0-4.4); Hematocrit 30.9 % (42.0-52.0); Hemoglobin 8.5 g/dL (14.0-18.0); Immature Granulocyte Absolute 0.07 K/mm3 (0.00-0.031); Immature Granulocyte Percent A 0.7 % (0-0.5); Lymphocytes Absolute Auto 1.08 K/mm3 (0.9-3.2); Lymphocytes Percent Auto 10.7 % (18.3-44.2); Mean Corpuscular HGB Conc 27.5 g/dl (32-36); Mean Corpuscular Hemoglobin 26.4 pg (26-34); Mean Platelet Volume 10.6 fl (7.4-10.4); Monocytes Absolute Auto 0.9 K/mm3 (0.1-0.6); Neutrophils Absolute Auto 7.9 K/mm3 (1.3-6.7); Platelet Count Result 259 k/mm3 (150-375); Red Blood Count 3.22 M/mm3 (4.6-6.20); Red Cell Distribution Width 17.8 % (11.5-14.5); White Blood Count 10.1 K/mm3 (4.5-10.0)
[2024-01-14 10:59] LABS: Alanine Aminotransferase 16 U/L (6-50); Albumin Level 2.5 g/dL (3.5-5.1); Alkaline Phosphatase 223 U/L (38-126); Aspartate Amino Transferase 29 U/L (17-59)
[2024-01-14 11:09] LABS: Anisocytosis 1+
[2024-01-14 11:10] LABS: Hyperchromasia 1+; Target Cells 1+
[2024-01-14 11:11] LABS: Platelet Estimate Adequate (Adequate); Schistocytes Rare
[2024-01-14] MEDS: ROSUVASTATIN 20 MG TABLET PO (12:35)
[2024-01-14] MEDS: ALBUMIN HUMAN 25% 25 GM/100 ML 200 ML IVPB (12:35)
[2024-01-14 15:10] LABS: Basophils Absolute Auto 0.1 K/mm3 (0.0-0.1); Basophils Percent Auto 0.4 % (0.2-1.2); Eosinophils Absolute Auto 0.1 K/mm3 (0-0.3); Eosinophils Percent Auto 0.5 % (0-4.4); Hematocrit 29.9 % (42.0-52.0); Hemoglobin 8.7 g/dL (14.0-18.0); Immature Granulocyte Absolute 0.11 K/mm3 (0.00-0.031); Immature Granulocyte Percent A 0.9 % (0-0.5); Lymphocytes Absolute Auto 1.27 K/mm3 (0.9-3.2); Lymphocytes Percent Auto 9.8 % (18.3-44.2); Mean Corpuscular HGB Conc 29.1 g/dl (32-36); Mean Corpuscular Hemoglobin 26.9 pg (26-34); Mean Corpuscular Volume 92.3 fl (80-100); Mean Platelet Volume 9.8 fl (7.4-10.4); Monocytes Absolute Auto 1.1 K/mm3 (0.1-0.6); Monocytes Percent Auto 8.3 % (2.6-8.5); Neutrophils Absolute Auto 10.4 K/mm3 (1.3-6.7); Neutrophils Percent Auto 80.1 % (45.5-73.1); Platelet Count Result 304 k/mm3 (150-375); Red Blood Count 3.24 M/mm3 (4.6-6.20); Red Cell Distribution Width 17.7 % (11.5-14.5); White Blood Count 12.9 K/mm3 (4.5-10.0)
[2024-01-14 15:13] LABS: Anion Gap 7 mmol/L (4-12); Blood Urea Nitrogen 8 mg/dL (9-20); Calcium 8.6 mg/dL (8.4-10.2); Carbon Dioxide 24 mmol/L (22-30); Chloride 107 mmol/L (98-107); Estimated CRCL calculation 90 ml/min; Estimated Glomerular Filt Rate > 60; Glucose 155 mg/dL (65-110); Magnesium 2.3 mg/dL (1.6-2.3); Potassium 3.3 mmol/L (3.4-5.0); Sodium 138 mmol/L (137-145)
[2024-01-14] MEDS: GABAPENTIN 300 MG CAPSULE PO (18:02)
[2024-01-14] MEDS: QUEtiapine FUMARATE XR 200 MG TAB.ER.24H 400 MG PO (21:34)
[2024-01-15] VITALS: PULSE 84
[2024-01-15 04:00] VITALS: PULSE 85
[2024-01-15 06:00] VITALS: BP 144/81; PULSE 88; RESP 20; TEMP 37.1; O2SAT 95
[2024-01-15 06:15] LABS: Basophils Absolute Auto 0.1 K/mm3 (0.0-0.1); Basophils Percent Auto 0.5 % (0.2-1.2); Eosinophils Absolute Auto 0.1 K/mm3 (0-0.3); Eosinophils Percent Auto 0.8 % (0-4.4); Hematocrit 27.7 % (42.0-52.0); Hemoglobin 8.4 g/dL (14.0-18.0); Immature Granulocyte Absolute 0.07 K/mm3 (0.00-0.031); Immature Granulocyte Percent A 0.7 % (0-0.5); Lymphocytes Absolute Auto 1.11 K/mm3 (0.9-3.2); Lymphocytes Percent Auto 11.7 % (18.3-44.2); Mean Corpuscular HGB Conc 30.3 g/dl (32-36); Mean Corpuscular Hemoglobin 26.9 pg (26-34); Mean Corpuscular Volume 88.8 fl (80-100); Mean Platelet Volume 9.6 fl (7.4-10.4); Monocytes Absolute Auto 0.8 K/mm3 (0.1-0.6); Monocytes Percent Auto 8.9 % (2.6-8.5); Neutrophils Absolute Auto 7.3 K/mm3 (1.3-6.7); Neutrophils Percent Auto 77.4 % (45.5-73.1); Platelet Count Result 286 k/mm3 (150-375); Red Blood Count 3.12 M/mm3 (4.6-6.20); Red Cell Distribution Width 17.6 % (11.5-14.5); White Blood Count 9.5 K/mm3 (4.5-10.0)
[2024-01-15] MEDS: metroNIDAZOLE 500 MG/ISO 100ML 500 MG/100 ML BAG 100 MG IVPB ×2 (06:18→13:32)
[2024-01-15 06:35] LABS: Anion Gap 5 mmol/L (4-12); Blood Urea Nitrogen 6 mg/dL (9-20); Calcium 8.4 mg/dL (8.4-10.2); Carbon Dioxide 25 mmol/L (22-30); Chloride 109 mmol/L (98-107); Estimated CRCL calculation 105 ml/min; Estimated Glomerular Filt Rate > 60; Glucose 103 mg/dL (65-110); Sodium 139 mmol/L (137-145)
[2024-01-15 07:07] LABS: Procalcitonin 0.5 ng/mL
[2024-01-15] MEDS: CEFEPIME 2 GM/NS 50 ML 2 GM/50 ML BAG IVPB (07:50)
[2024-01-15] MEDS: FERROUS SULFATE 325 MG TABLET DR PO (07:51)
[2024-01-15] MEDS: QUEtiapine FUMARATE 25 MG TABLET PO (07:51)
[2024-01-15] MEDS: ROSUVASTATIN 20 MG TABLET PO (07:51)
[2024-01-15] MEDS: CITALOPRAM HYDROBROMIDE 10 MG TABLET PO (07:51)
[2024-01-15] MEDS: PANTOPRAZOLE 40 MG TABLET PO (07:51)
[2024-01-15] MEDS: DOXAZOSIN MESYLATE 4 MG TABLET PO (07:51)
[2024-01-15] MEDS: THIAMINE HCL 200 MG/2 ML VIAL 100 MG IV PUSH (07:51)
[2024-01-15 08:00] VITALS: PULSE 82
[2024-01-15 08:45] LABS: Glucose Point of Care 101 mg/dl (65-105)
--- NOTE | 2024-01-15 09:48 | PM.IMPN ---
Progress Note: A&P Assessment and Plan (1) Hypokalemia: Code(s): E87.6 - Hypokalemia Status: Acute (2) Protein calorie malnutrition: Code(s): E46 - Unspecified protein-calorie malnutrition Status: Acute (3) Weight loss: Code(s): R63.4 - Abnormal weight loss Status: Acute (4) Iron deficiency anemia: Code(s): D50.9 - Iron deficiency anemia, unspecified Status: Acute (5) Electrolyte abnormality: Code(s): E87.8 - Other disorders of electrolyte and fluid balance, not elsewhere classified Status: Acute (6) Malnutrition related to chronic disease: Code(s): E46 - Unspecified protein-calorie malnutrition Status: Acute (7) COPD (chronic obstructive pulmonary disease): Code(s): J44.9 - Chronic obstructive pulmonary disease, unspecified Status: Acute (8) Colonic mass: Code(s): K63.89 - Other specified diseases of intestine Status: Acute (9) Septic shock: Code(s): A41.9 - Sepsis, unspecified organism; R65.21 - Severe sepsis with septic shock Status: Acute (10) Hypotension: Code(s): I95.9 - Hypotension, unspecified Status: Acute (11) Tobacco abuse: Code(s): Z72.0 - Tobacco use Status: Acute (12) Chronic alcohol abuse: Code(s): F10.10 - Alcohol abuse, uncomplicated Status: Acute (13) Hypoalbuminemia: Code(s): E88.09 - Other disorders of plasma-protein metabolism, not elsewhere classified Status: Acute Plan 78-year-old male with a past medical history distant alcohol abuse, tobacco abuse, BPH, GERD, COPD, psychiatric disorder, depression presents from [facility] after being found down on the ground. He was treated for septic shock of unknown origin. Further evaluation reveals a severe protein calorie malnutrition with weight loss and cachexia. A sigmoidoscopy conducted demonstrating primary a dental carcinoma of the transverse colon primary lesion 17 cm mass January 10: Pre albumin and transferrin levels low. Hospice referral made. Patient has persistent although mild leukocytosis. Analysis not remarkable although urine culture pending. Repeat chest x-ray unremarkable except for some mild pulmonary edema. Pending quad screen. He is currently on ceftriaxone. Will discontinue fluids and avoid diuresis as he is severely malnourished. In regards to that, prealbumin and transferrin is low and surgery has commended hospice care which a consultation has been placed. He is likely losing blood via the colon tumor continue to monitor hemoglobin. #primary adenocarcinoma of transverse colon -biopsy from sigmoidoscopy, tissue shows adenocarcinoma.? CT abdomen pelvis inches does not show metastasis.? primary lesion 17 cm mass -consult to oncology:? likely localized cancer, no sign of metastasis on imaging -CEA 1070, will need outpatient PET scan as per oncology -plan for continuing nutritional supplementation and outpatient follow-up with surgery for planned outpatient colectomy in next few weeks (this is to minimize surgical risk) -Patient will need weekly CMP, prealbumin and transferrin -patient is tolerating p.o. intake drinking Ensure, TPN is a consideration although have not had to institute this up to now. -he will need outpatient follow up with surgery to arrange for colectomy and tumor resection On 01/09 hospice consult placed. dehydration Blood pressure low, tachycardia tachypnea Normal saline 500 mL bolus, start normal saline IV blood pressure stable now continue fluids for now. He is still tachycardic. 01/11: BP dropped again. restart NS 100 ml/h and ns 500ml bolus 01/12: patient has hypoalbuminemia, albumin 2.3, likely resulting from man nutrition, provide albumin 25% 50 g once 01/13 proved albumin 25% 50 g once now BP stable #septic shock on presentation -septic shock on 12/21, has resolved on 01/08 UTI and sepsis patient has low-grade fever 99.9 over the
--- NOTE | 2024-01-15 09:56 | PM.DS ---
DS: Admitting Diagnosis Discharge Date 01/14 Admitting Diagnosis (1) Hypokalemia: ?Code(s): E87.6 - Hypokalemia ?Status:?Acute (2) Protein calorie malnutrition: ?Code(s): E46 - Unspecified protein-calorie malnutrition ?Status:?Acute (3) Weight loss: ?Code(s): R63.4 - Abnormal weight loss ?Status:?Acute (4) Iron deficiency anemia: ?Code(s): D50.9 - Iron deficiency anemia, unspecified ?Status:?Acute (5) Electrolyte abnormality: ?Code(s): E87.8 - Other disorders of electrolyte and fluid balance, not elsewhere classified ?Status:?Acute (6) Malnutrition related to chronic disease: ?Code(s): E46 - Unspecified protein-calorie malnutrition ?Status:?Acute (7) COPD (chronic obstructive pulmonary disease): ?Code(s): J44.9 - Chronic obstructive pulmonary disease, unspecified ?Status:?Acute (8) Colonic mass: ?Code(s): K63.89 - Other specified diseases of intestine ?Status:?Acute (9) Septic shock: ?Code(s): A41.9 - Sepsis, unspecified organism; R65.21 - Severe sepsis with septic shock ?Status:?Acute (10) Hypotension: ?Code(s): I95.9 - Hypotension, unspecified ?Status:?Acute (11) Tobacco abuse: ?Code(s): Z72.0 - Tobacco use ?Status:?Acute (12) Chronic alcohol abuse: ?Code(s): F10.10 - Alcohol abuse, uncomplicated ?Status:?Acute (13) Hypoalbuminemia: ?Code(s): E88.09 - Other disorders of plasma-protein metabolism, not elsewhere classified ?Status:?Acute DS: Discharge Diagnosis Discharge Diagnosis (1) Hypokalemia: Code(s): E87.6 - Hypokalemia Status: Acute (2) Protein calorie malnutrition: Code(s): E46 - Unspecified protein-calorie malnutrition Status: Acute (3) Weight loss: Code(s): R63.4 - Abnormal weight loss Status: Acute (4) Iron deficiency anemia: Code(s): D50.9 - Iron deficiency anemia, unspecified Status: Acute (5) Electrolyte abnormality: Code(s): E87.8 - Other disorders of electrolyte and fluid balance, not elsewhere classified Status: Acute (6) Malnutrition related to chronic disease: Code(s): E46 - Unspecified protein-calorie malnutrition Status: Acute (7) COPD (chronic obstructive pulmonary disease): Code(s): J44.9 - Chronic obstructive pulmonary disease, unspecified Status: Acute (8) Colonic mass: Code(s): K63.89 - Other specified diseases of intestine Status: Acute (9) Septic shock: Code(s): A41.9 - Sepsis, unspecified organism; R65.21 - Severe sepsis with septic shock Status: Acute (10) Hypotension: Code(s): I95.9 - Hypotension, unspecified Status: Acute (11) Tobacco abuse: Code(s): Z72.0 - Tobacco use Status: Acute (12) Chronic alcohol abuse: Code(s): F10.10 - Alcohol abuse, uncomplicated Status: Acute (13) Hypoalbuminemia: Code(s): E88.09 - Other disorders of plasma-protein metabolism, not elsewhere classified Status: Acute DS: Summary Hospital Course Hospital Course: 78-year-old male with a past medical history distant alcohol abuse, tobacco abuse, BPH, GERD, COPD, psychiatric disorder, depression presents from [facility] after being found down on the ground. He was treated for septic shock of unknown origin. Further evaluation reveals a severe protein calorie malnutrition with weight loss and cachexia. A sigmoidoscopy conducted demonstrating primary a dental carcinoma of the transverse colon primary lesion 17 cm mass January 10: Pre albumin and transferrin levels low. Hospice referral made. Patient has persistent although mild leukocytosis. Analysis not remarkable although urine culture pending. Repeat chest x-ray unremarkable except for some mild pulmonary edema. Pending quad screen. He is currently on ceftriaxone. Will discontinue fluids and avoid diuresis as he is severely malnouri
[2024-01-15] MEDS: POTASSIUM CHLORIDE 20 MEQ PACKET (FOR LIQUID) 40 MEQ PO (09:57)
[2024-01-15] MEDS: KCL 20 MEQ/SW 100 ML 100 ML 50 MEQ IVPB (10:27)
[2024-01-15 10:56] LABS: SARS-CoV-2 RNA PCR Negative (Negative)
[2024-01-15 12:00] VITALS: PULSE 96
== END 2024-01-15 14:30 | DRG 871 ==
LOC: ANHED 14:30 → ANHICU 22:03 → ANH3MEDSUR 12-25 13:14
PROVIDERS: Family Medicine; General Practice; Internal Medicine; Internal Medicine Gastroenterology; Student in an Organized Health Care Education/Training Program; Surgery; Admitting Provider Internal Medicine; Emergency Provider Student in an Organized Health Care Education/Training Program; PCP Internal Medicine; Visit Provider Hospitalist
PROC: 0DJD8ZZ Inspection of Lower Intestinal Tract, Via Natural or Artificial Opening Endoscopic (ICD-10-PCS; CPT 45378; principal; 2023-12-26 15:00)
DX: A41.9 Sepsis, unspecified organism (principal); E43 Unspecified severe protein-calorie malnutrition; R65.21 Severe sepsis with septic shock; C18.4 Malignant neoplasm of transverse colon; E87.1 Hypo-osmolality and hyponatremia; Z68.1 Body mass index [BMI] 19.9 or less, adult; N39.0 Urinary tract infection, site not specified; J44.9 Chronic obstructive pulmonary disease, unspecified; E88.09 Other disorders of plasma-protein metabolism, not elsewhere classified; D50.9 Iron deficiency anemia, unspecified; E87.6 Hypokalemia; E86.0 Dehydration; K21.9 Gastro-esophageal reflux disease without esophagitis; N40.0 Benign prostatic hyperplasia without lower urinary tract symptoms; F10.10 Alcohol abuse, uncomplicated; M19.90 Unspecified osteoarthritis, unspecified site; F32.9 Major depressive disorder, single episode, unspecified; F03.90 Unspecified dementia, unspecified severity, without behavioral disturbance, psychotic disturbance, mood disturbance, and anxiety; F17.210 Nicotine dependence, cigarettes, uncomplicated; T68.XXXA Hypothermia, initial encounter; W19.XXXA Unspecified fall, initial encounter; Z20.822 Contact with and (suspected) exposure to COVID-19; Z11.52 Encounter for screening for COVID-19; Z80.0 Family history of malignant neoplasm of digestive organs
CPT/HCPCS: 36415; 36430; 36556; 36569; 70450; 71045; 71046; 71260; 73502; 74177; 80048; 80053; 80076; 80202; 80307; 81001; 82274; 82378; 82533; 82607; 82728; 82746; 82948; 83540; 83550; 83605; 83735; 84100; 84134; 84145; 84443; 84466; 85014; 85018; 85025; 85027; 85610; 85730; 86850; 86900; 86901; 86923; 87040; 87086; 87493; 87635; 87637; 87641; 88305; 92611; 93005; 96360; 96361; 97110; 97116; 97162; 97164; 97165; 97530; 97535; 99285; A9270; C1751; C8929; C9113; J0692; J0696; J1644; J1650; J1720; J1756; J1836; J2405; J2704; J3370; J3411; J3480; J7030; J7040; J7050; J7120; P9016; P9047; Q9957; Q9967

== ENCOUNTER 2024-01-30 13:53 | Inpatient (IN) | payer MEDICARE, MEDICAID, SELFPAY ==
[2024-01-30] VITALS (8 sets, daily range): BP systolic 73–95; BP diastolic 46–58; PULSE 90–102; RESP 16–22; TEMP 36.6–36.7; O2SAT 97–100; BMI 15.9
--- NOTE | ~2024-01-30 | XR_ITS ---
EXAMINATION: XR chest 2V DATE: 01/30/2024 15:11 INDICATION: Weakness TECHNIQUE: frontal and lateral views of the chest were obtained. COMPARISON: Chest radiograph dated 01/13/2024 FINDINGS: Biapical pleural-parenchymal scarring. No other airspace opacities, pulmonary edema, pleural effusion or pneumothorax. The cardiomediastinal silhouette is normal. Mild thoracic kyphosis with mild spondy losis and chronic mild anterior wedging of a few mid thoracic vertebral bodies. IMPRESSION: 1. Chronic biapical pleural-parenchymal scarring. Reviewed, dictated and finalized at location A.
--- NOTE | ~2024-01-30 | CT_ITS ---
EXAMINATION: CT abdomen pelvis w con DATE: 01/30/2024 15:03 INDICATION: Bowel obstruction. Weakness. TECHNIQUE: Computed tomography (CT) of the abdomen and pelvis was performed with 100 mL Omnipaque 350 intravenous contrast. Automated exposure control and iterative reconstruction technique were employe d. The dose-length product was 248.76 mGy-cm. COMPARISON: CT abdomen and pelvis 12/22/2023 FINDINGS: The visualized portions of the lung bases are clear without pneumonia or pleural effusion. The heart size is normal. No pericardial effusion. There is a 6 mm cyst in the liver. The gallbladder , spleen, pancreas, adrenal glands, and kidneys are normal. There is a 15.7 x 9.2 x 19.4 cm mass invo lving the descending colon and transverse colon. There are no dilated loops of bowel. The appendix is not visualized. There are no pathologically enlarged lymph nodes. There is no free intraperitoneal f luid. There is calcified atherosclerosis of the aorta and many of the other arteries. There is geotechnical intern al fixation of right femur. There is mild lumbar spondylosis. IMPRESSION: 1. 19.4 cm mass involving the descending and transverse colon, consistent with primary malignancy. Reviewed, dictated and finalized at location A.
--- NOTE | 2024-01-30 14:00 | ECG_ITS ---
SEE SCANNED COPY FOR CONFIRMED REPORT MTDD
[2024-01-30 14:28] LABS: Basophils Percent Auto 0.3 % (0.2-1.2); Eosinophils Percent Auto 0.2 % (0-4.4); Hematocrit 28.5 % (42.0-52.0); Hemoglobin 8.6 g/dL (14.0-18.0); Immature Granulocyte Absolute 0.09 K/mm3 (0.00-0.031); Immature Granulocyte Percent A 0.7 % (0-0.5); Lymphocytes Percent Auto 10.3 % (18.3-44.2); Mean Corpuscular HGB Conc 30.2 g/dl (32-36); Mean Corpuscular Hemoglobin 28.6 pg (26-34); Mean Corpuscular Volume 94.7 fl (80-100); Mean Platelet Volume 8.9 fl (7.4-10.4); Monocytes Absolute Auto 1.3 K/mm3 (0.1-0.6); Monocytes Percent Auto 10.2 % (2.6-8.5); Neutrophils Absolute Auto 9.9 K/mm3 (1.3-6.7); Neutrophils Percent Auto 78.3 % (45.5-73.1); Platelet Count Result 355 k/mm3 (150-375); Red Blood Count 3.01 M/mm3 (4.6-6.20); Red Cell Distribution Width 19.1 % (11.5-14.5); White Blood Count 12.6 K/mm3 (4.5-10.0)
[2024-01-30 14:40] LABS: Alanine Aminotransferase 11 U/L (6-50); Albumin Level 2.6 g/dL (3.5-5.1); Alkaline Phosphatase 168 U/L (38-126); Anion Gap 2 mmol/L (4-12); Aspartate Amino Transferase 17 U/L (17-59); Bilirubin,Total 0.7 mg/dL (0.2-1.3); Blood Urea Nitrogen 17 mg/dL (9-20); Calcium 8.3 mg/dL (8.4-10.2); Carbon Dioxide 30 mmol/L (22-30); Chloride 101 mmol/L (98-107); Estimated CRCL calculation 66 ml/min; Estimated Glomerular Filt Rate > 60; Glucose 100 mg/dL (65-110); Potassium 4.2 mmol/L (3.4-5.0); Sodium 133 mmol/L (137-145)
--- NOTE | 2024-01-30 14:58 | PC.NURSE ---
Patient declines straight at this time. Patient will attempt to give urine sample after fluids
--- NOTE | 2024-01-30 15:21 | ED.GENADULT ---
HPI - General Adult General Chief complaint: Weakness Stated complaint: AMS Time Seen by Provider: 01/30/24 14:02 History of Present Illness HPI narrative: Patient is a 78-year-old male who presents ER from his snf with reports of low blood pressure and new confusion. They report he is oriented x1 at baseline. Patient currently resides December of 2023 and he knows that he is at a hospital. He reports that he has low blood pressure. He has no pain at this time. Patient is however a poor historian. He is unable to communicate that he has a large colonic mass. It appears he has no power of family law attorney listed. The facility states there is no next of kin or family contact. He is not currently a bro of the [facility]. Related Data Home Medications Medication Instructions Recorded Confirmed citalopram 10 mg tablet 10 mg PO DAILY 12/22/23 12/22/23 doxazosin 4 mg tablet 4 mg PO DAILY 12/22/23 12/22/23 gabapentin 300 mg tablet,extended 300 mg PO QPM 12/22/23 12/22/23 release 24 hr hydroxyzine HCl 50 mg tablet 50 mg PO QID PRN Itching 12/22/23 12/22/23 pantoprazole 40 mg tablet,delayed 40 mg PO QAM 12/22/23 12/22/23 release quetiapine 25 mg tablet 25 mg PO QAM 12/22/23 12/22/23 quetiapine 400 mg tablet,extended 400 mg PO HS 12/22/23 12/22/23 release 24 hr rosuvastatin 20 mg tablet 20 mg PO DAILY 12/22/23 12/22/23 trazodone 100 mg tablet 100 mg PO HS PRN Insomnia 12/22/23 12/22/23 Allergies Allergy/AdvReac Type Severity Reaction Status Date / Time Penicillins Allergy Rash Verified 01/12/24 13:35 Review of Systems Review of Systems: ROS unobtainable: Yes unobtainable due to mental status PMFSH Past Medical History Medical History (Updated 01/30/24 @ 21:23 by Lisandro Zapata MD) Alcohol abuse Arthritis Colonic mass COPD (chronic obstructive pulmonary disease) Iron deficiency anemia Major depressive disorder Tobacco abuse Weight loss Surgical History Surgical History (Updated 12/30/23 @ 13:01 by Juan Miguel Christianson MD) No history of previous surgery Family History Family History Mother Cancer Social History Social History Social History: Patient lives in his own home and is never been . He does not have any pets. He reports that he has not had any contact with his extended family members. He went drinks to excess but will not give me a specific amount that he drinks. He does new enjoys south flavored vodka. He has smoked a pack of cigarettes per day since he was 30 years old. The patient is evasive when discussing illicit substances but urine drug screen was negative in the ER. Code status: DNR/DNI per patient request He does not have a surrogate decision maker in does not have a family member that he is in contact that he would wish to a point as a decision maker. He states to ask the people at [facility] or the staff at the hospital what they would want done. Smoking packs per day: 1 Smoking cigarettes per day: 20.0 Years smoked: 60 Smoking pack-years: 60.00 Smoking status: Heavy tobacco smoker Tobacco type: cigarettes Alcohol intake: current Substance use: never Substance use type: does not use Do You Feel Safe in your Home?: Yes Lack of Transportation: No Lack of Food: Never True Current Housing: I Do Not Have Housing Concerned About Future Housing: No Difficulty Paying Gas/Electric Bills: No Difficulty Paying for Meds: No Currently Unemployed: No Education: Grade School Difficulty w/ Childcare or Family Care: No Additional living arrangements comments: Resides at [place] since 11/21/2011 Spiritual care concerns: No Exam Narrative: GENERAL: Chronically ill-appearing, thin and malnourished in appearance, and in no acute distress. HEAD: Normocephalic, atraumatic. EYES: PERRL and EOMI. ENT: Mucous membranes moist.
--- NOTE | 2024-01-30 17:54 | PCCCNOTE ---
NEVAEH in to see pt. After evaluating pt NEVAEH nurse and NEVAEH doctor did not feel pt has mental capacity to make hospice decision on own. Dr Zapata notified and pt to be admitted for treatment and to start process for State to take POA or have an ethics panel review.
[2024-01-30 18:31] LABS: Appearance Urine Clear (Clear); Bacteria Urine 4+ /hpf; Bilirubin Urine 1+ (Negative); Blood Urine Negative (Negative); Color Urine Dark Yellow (Yellow); Glucose Urine UA Negative (Negative); Ketones Urine Negative (Negative); Leukocyte Esterase Ur Trace LEU/UL (Negative); Nitrate Urine Positive (Negative); Non Pathogenic Casts 0-2; Protein Urine Trace mg/dL (Negative); RBC Urine 0-2 /hpf (0-2); Specific Grav Ur 1.019 (1.001-1.035); Squamous Epithelial Cell Urine None Seen /hpf (Few); WBC Urine 0-5 /hpf (0-3); pH Urine 5.5 (5.0-9.0)
[2024-01-30 18:33] LABS: Add Urine Microscopic? YES
[2024-01-30] MEDS: SODIUM CHLORIDE 0.9% IV 1,000 ML 999 ML IV CONT (18:53)
--- NOTE | 2024-01-30 22:18 | ADMGEN ---
This patient, Mario Gomez Jr., was admitted to [facility] Surg Room 330-02. Patient/family oriented to hospital policies and general routines including ID bracelet, bed and alarms, visiting hours, pain management, procedures, bathroom and other care routines, personal items, smoking policy, room service/diet, and visiting hours. Information on how to activate the Rapid Response Team has been discussed. Patient/Family are encouraged to report perceived risks to care and to ask questions if they do not understand what they are told or what they should do.
[2024-01-31] MEDS: SODIUM CHLORIDE 0.9% IV 1,000 ML 125 ML IV CONT ×2 (02:34→15:00)
[2024-01-31 05:20] VITALS: BP 95/48; PULSE 92; RESP 16; TEMP 36.2; O2SAT 96
[2024-01-31 08:00] VITALS: PULSE 96; RESP 18; O2SAT 100
[2024-01-31] MEDS: GABAPENTIN 100 MG CAPSULE PO ×3 (08:44→16:59)
[2024-01-31] MEDS: ROSUVASTATIN 20 MG TABLET BY MOUTH (08:44)
[2024-01-31] MEDS: POTASSIUM CHLORIDE 20 MEQ ER TABLET PO (08:44)
[2024-01-31] MEDS: CITALOPRAM HYDROBROMIDE 10 MG TABLET PO (08:44)
[2024-01-31] MEDS: PANTOPRAZOLE 40 MG TABLET PO (08:44)
[2024-01-31] MEDS: QUEtiapine FUMARATE 25 MG TABLET PO (08:44)
[2024-01-31] MEDS: DOXAZOSIN MESYLATE 4 MG TABLET PO (08:44)
--- NOTE | 2024-01-31 10:24 | PM.IMHP ---
H&P: HPI History of Present Illness Date/Time: 01/31/24 10:24 Chief Complaint: Confusion and low blood pressure Narrative: This is a 78-year-old male patient resides at local nursing facility and is his own guardian with no appointed POA brought to the emergency department yesterday for reports of low blood pressure and new onset confusion beyond his normal orientation x1. Patient was found to be hypotensive with UA findings consistent with acute urinary tract infection. Patient started on IV antibiotics and admitted to the floor. CT scan abdomen pelvis shows a 19 cm suspected colon cancer mass. Patient reports some abdominal tenderness to palpation but no pain at rest. Patient states that he is feeling much better. Unable to fully answer orientation questions and unable to provide much guidance when questioned about treatment for such a presumed cancer is mass. Last known to be a DNR so this code status will be continued. No current POA or state appointed guardian. I asked the patient who would make decisions if he was not able to and he stated he would make decisions for himself. Surgery has been consulted to evaluate large colonic mass. Patient denies chest pain nausea vomiting bowel or bladder problems difficulty breathing chills or any other symptoms. Review of Systems Review of Systems: All systems reviewed & are unremarkable except as noted in HPI and below PMFSH Past Medical History Medical History Alcohol abuse Arthritis Colonic mass COPD (chronic obstructive pulmonary disease) Iron deficiency anemia Major depressive disorder Tobacco abuse Weight loss Surgical History Surgical History No history of previous surgery Family History Family History Mother Cancer Social History Social History (Updated 01/31/24 @ 14:03 by Mickey Bronson APRN) Social History: Currently: Patient resides in long-term care facility as he has no extended family or assistance to maintain a home and has not been able to do so for himself recently. Previously: Patient lives in his own home and is never been . He does not have any pets. He reports that he has not had any contact with his extended family members. He went drinks to excess but will not give me a specific amount that he drinks. He does new enjoys south flavored vodka. He has smoked a pack of cigarettes per day since he was 30 years old. The patient is evasive when discussing illicit substances but urine drug screen was negative in the ER. Code status: DNR/DNI per patient request He does not have a surrogate decision maker in does not have a family member that he is in contact that he would wish to a point as a decision maker. He states to ask the people at [facility] or the staff at the hospital what they would want done. Smoking packs per day: 1 Smoking cigarettes per day: 20.0 Years smoked: 60 Smoking pack-years: 60.00 Smoking status: Unknown if ever smoked Tobacco type: cigarettes Alcohol intake: former Substance use: unknown Substance use type: does not use Do You Feel Safe in your Home?: Yes Lack of Transportation: No Lack of Food: Never True Current Housing: I Have Housing Concerned About Future Housing: No Difficulty Paying Gas/Electric Bills: No Difficulty Paying for Meds: No Currently Unemployed: No Education: Don't Know Difficulty w/ Childcare or Family Care: No Additional living arrangements comments: Resides at [facility] since 11/21/2011 Spiritual care concerns: No Meds Home Medications and Allergies Home Medications Medication Instructions Recorded Confirmed Type citalopram 10 mg tablet 10 mg PO DAILY 12/22/23 01/30/24 History doxazosin 4 mg tablet 4 mg PO DAILY 12/22/23 01/30/24 History gabapentin 300 mg tabl
[2024-01-31 14:00] VITALS: BP 90/56; PULSE 96; RESP 18; TEMP 36.8; O2SAT 100
--- NOTE | 2024-01-31 17:30 | PM.CNGS ---
Assessment and Plan Assessment and plan (1) Colon cancer: Qualifiers: Colon location: descending Qualified Code(s): C18.6 - Malignant neoplasm of descending colon Code(s): C18.9 - Malignant neoplasm of colon, unspecified Status: Chronic Assessment and Plan: Extremely large colon mass that no doubt involves small bowel and probably other structures in the abdomen. This has been present for quite some time and patient has no wish to have it removed. If any treatment were to be rendered, I would recommend Medical Oncology. I do not think he would survive the surgery due to his medical comorbidities as well as his malnutrition. He is not a surgical candidate in my opinion. We will go ahead and sign off. If he will accept hospice referral, I would advocate that strongly. (2) Altered mental status: Qualifiers: Altered mental status type: stupor Qualified Code(s): R40.1 - Stupor Code(s): R41.82 - Altered mental status, unspecified Status: Acute Assessment and Plan: Apparently now back to baseline (3) Acute UTI: Code(s): N39.0 - Urinary tract infection, site not specified Status: Acute Assessment and Plan: Being treated, cultures pending (4) Protein calorie malnutrition: Qualifiers: Protein-calorie malnutrition severity: severe Qualified Code(s): E43 - Unspecified severe protein-calorie malnutrition Code(s): E46 - Unspecified protein-calorie malnutrition Status: Acute Assessment and Plan: Recommend Ensure or other nutritional supplements. History of Present Illness Consult details Consult date: 01/31/24 Reason for consult: other (Colon cancer) Requesting physician: Rula Thompson APRN Narrative: Patient is an unfortunate 78-year-old man who resides at [facility]. He has do not resuscitate status. He has a history of mental illness and memory impairment. He was just admitted here in December and discharged 15 days ago. During that admission, he had a sigmoidoscopy which showed a very large colon cancer. Patient is is own power of tax attorney although there was some discussion as he will be a bro of the state. In talking with the patient today, he denies any pain associated with the mass. He tells me he has known about that for a long time. He does not want to have surgery. He denied wanting to have surgery at his last admission as well. He is not vomiting or showing signs of bowel obstruction. He is seen now in consultation. He may have a urinary tract infection. He is being treated with antibiotics. He was sent to the emergency room because he was found on the floor, seemed to have less mental status than baseline and had low blood pressure. Review of Systems Review of Systems: ROS unobtainable: Yes unobtainable due to medical condition PMFSH Past Medical History Medical History Alcohol abuse Arthritis Colonic mass COPD (chronic obstructive pulmonary disease) Iron deficiency anemia Major depressive disorder Tobacco abuse Weight loss Surgical History Surgical History No history of previous surgery Family History Family History Mother Cancer Social History Social History Social History: Currently: Patient resides in long-term care facility as he has no extended family or assistance to maintain a home and has not been able to do so for himself recently. Previously: Patient lives in his own home and is never been . He does not have any pets. He reports that he has not had any contact with his extended family members. He went drinks to excess but will not give me a specific amount that he drinks. He does new enjoys south flavored vodka. He has smoked a pack of cigarettes
[2024-01-31 20:22] VITALS: BP 109/63; PULSE 90; RESP 18; TEMP 36.3; O2SAT 96
[2024-01-31] MEDS: QUEtiapine FUMARATE XR 200 MG TAB.ER.24H 400 MG PO (20:43)
[2024-02-01] MEDS: SODIUM CHLORIDE 0.9% IV 1,000 ML 125 ML IV CONT (03:42)
[2024-02-01 04:13] VITALS: BP 114/56; PULSE 92; RESP 16; TEMP 36.7; O2SAT 97
[2024-02-01 06:00] LABS: Basophils Percent Auto 0.4 % (0.2-1.2); Eosinophils Percent Auto 0.4 % (0-4.4); Hemoglobin 7.9 g/dL (14.0-18.0); Immature Granulocyte Absolute 0.08 K/mm3 (0.00-0.031); Immature Granulocyte Percent A 0.8 % (0-0.5); Lymphocytes Absolute Auto 1.08 K/mm3 (0.9-3.2); Lymphocytes Percent Auto 11.2 % (18.3-44.2); Mean Corpuscular HGB Conc 30.4 g/dl (32-36); Mean Corpuscular Hemoglobin 28.9 pg (26-34); Mean Corpuscular Volume 95.2 fl (80-100); Mean Platelet Volume 9.1 fl (7.4-10.4); Monocytes Percent Auto 10.2 % (2.6-8.5); Neutrophils Absolute Auto 7.4 K/mm3 (1.3-6.7); Platelet Count Result 333 k/mm3 (150-375); Red Blood Count 2.73 M/mm3 (4.6-6.20); Red Cell Distribution Width 18.8 % (11.5-14.5); White Blood Count 9.6 K/mm3 (4.5-10.0)
[2024-02-01 06:17] LABS: Alanine Aminotransferase 8 U/L (6-50); Albumin Level 2.1 g/dL (3.5-5.1); Alkaline Phosphatase 141 U/L (38-126); Anion Gap 3 mmol/L (4-12); Aspartate Amino Transferase 18 U/L (17-59); Bilirubin,Total 0.6 mg/dL (0.2-1.3); Blood Urea Nitrogen 9 mg/dL (9-20); Calcium 7.6 mg/dL (8.4-10.2); Carbon Dioxide 22 mmol/L (22-30); Chloride 107 mmol/L (98-107); Estimated CRCL calculation 96 ml/min; Estimated Glomerular Filt Rate > 60; Glucose 101 mg/dL (65-110); Magnesium 1.9 mg/dL (1.6-2.3); Potassium 3.6 mmol/L (3.4-5.0); Sodium 132 mmol/L (137-145)
[2024-02-01 08:00] VITALS: PULSE 92; RESP 16; O2SAT 94
[2024-02-01 08:33] VITALS: O2SAT 94
[2024-02-01] MEDS: GABAPENTIN 100 MG CAPSULE PO ×3 (08:46→16:36)
[2024-02-01] MEDS: CITALOPRAM HYDROBROMIDE 10 MG TABLET PO (08:46)
[2024-02-01] MEDS: DOXAZOSIN MESYLATE 4 MG TABLET PO (08:46)
[2024-02-01] MEDS: ENOXAPARIN 40 MG/0.4 ML SYRINGE SUB-Q (08:47)
[2024-02-01] MEDS: ROSUVASTATIN 20 MG TABLET BY MOUTH (08:47)
[2024-02-01] MEDS: POTASSIUM CHLORIDE 20 MEQ ER TABLET PO (08:47)
[2024-02-01] MEDS: PANTOPRAZOLE 40 MG TABLET PO (08:47)
[2024-02-01] MEDS: QUEtiapine FUMARATE 25 MG TABLET PO (08:47)
--- NOTE | 2024-02-01 10:39 | PM.IMPN ---
Progress Note: A&P Assessment and Plan (1) Altered mental status: Qualifiers: Altered mental status type: stupor Qualified Code(s): R40.1 - Stupor Code(s): R41.82 - Altered mental status, unspecified Status: Acute Assessment and Plan: -diminished level of consciousness on arrival patient is currently awake will answer most questions but does not answer all orientations correctly 01/31: Still confused but improved level of consciousness (2) Acute UTI: Code(s): N39.0 - Urinary tract infection, site not specified Status: Acute Assessment and Plan: urinalysis with 4+ urine bacteria positive urine nitrates trace leukocyte esterase. IV antibiotics initiated. 01/31: Reviewed microbiology does not appear that urine culture was ever sent. (3) Colonic mass: Code(s): K63.89 - Other specified diseases of intestine Status: Chronic Assessment and Plan: - Large left abdominal firm mass palpable externally measuring 19.[address] scan. General surgery consulted. (4) Malnutrition related to chronic disease: Code(s): E46 - Unspecified protein-calorie malnutrition Status: Acute Assessment and Plan: Severe protein calorie malnutrition related to chronic disease and colon cancer mass (5) Hyponatremia: Code(s): E87.1 - Hypo-osmolality and hyponatremia Status: Acute Assessment and Plan: Mild hyponatremia with initial sodium 133 which is in range of prior levels in December 202301/31: 132 sodium today, IV fluids discontinued as patient is taking adequate intake (6) Normocytic anemia: Code(s): D64.9 - Anemia, unspecified Status: Acute Assessment and Plan: 01/31: Chronic Anemia with hemoglobin 8.6 on arrival, 7.9 this morning, no signs of blood loss, brown stool. IV fluids discontinued. Time Spent With Patient Time with patient: 25 - 35 minutes Subjective Date/time seen: 02/01/24 10:39 Interval history: Patient denies any pain states he is feeling little bit better. He still remains somewhat confused but does seem more alert with antibiotic treatment for UTI. Review of Systems Review of Systems: All systems reviewed & are unremarkable except as noted in HPI and below Exam Narrative: GENERAL: Chronically ill-appearing, thin and malnourished in appearance, and in no acute distress. HEAD: Normocephalic, atraumatic. EYES: PERRL and EOMI. ENT: Mucous membranes moist. CHEST: Clear to auscultation. No respiratory distress. HEART: Regular rate and rhythm. Normal peripheral pulses. ABDOMEN: Firm, minimally tender, large palpable mass in left abdomen consistent with patient's known colon mass EXTREMITIES: Normal range of motion. No edema. SKIN: Warm, dry, no rash. NEURO: Alert and oriented x2-3. PSYCH: Normal mood and affect. Objective Data Vital Signs Vital Signs: Vital Signs - 24 hr 01/31/24 14:00 01/31/24 20:22 02/01/24 04:13 Temperature 36.8 C 36.3 C L 36.7 C Pulse Rate 96 90 92 Respiratory Rate 18 18 16 Blood Pressure 90/56 L 109/63 114/56 L Pulse Oximetry 100 96 97 Oxygen Delivery 02/01/24 08:33 02/01/24 08:00 Temperature Pulse Rate 92 Respiratory Rate 16 Blood Pressure Pulse Oximetry 94 94 Oxygen Delivery Room Air Room Air Intake/Output Intake/Output: Intake & Output 01/29/24 01/30/24 01/31/24 02/01/24 23:59 23:59 23:59 23:59 Intake Total 1050 4126 240 Output Total 300 Balance 1050 4126 -60 Meds/Results Medications: Active Medications Generic Name Dose Route Start Last Admin Trade Name Freq PRN Reason Stop Dose Admin Acetaminophen 650 mg 01/30/24 19:19 Acetaminophen 325 Mg Tablet PO Q4H PRN Mild Pain (1-3) or Fever Hydrocodone Bitart/Acetaminophen 1 tab 01/30/24 19:19 Hydrocodone/Acetaminophen (*Crx) 5-325 Mg Tablet PO Q4H PRN Pain Rated 4-6 Bisacodyl 10 mg 01/31/24 07:45 Bisacodyl 10 Mg Suppos
[2024-02-01 14:00] VITALS: BP 120/66; PULSE 86; RESP 17; TEMP 36.7; O2SAT 96
[2024-02-01 20:09] VITALS: BP 97/67; PULSE 92; RESP 16; TEMP 36.5; O2SAT 97
[2024-02-01] MEDS: QUEtiapine FUMARATE XR 200 MG TAB.ER.24H 400 MG PO (20:25)
[2024-02-02 05:27] VITALS: BP 90/50; PULSE 86; RESP 18; TEMP 36.6; O2SAT 96
[2024-02-02 07:01] LABS: Basophils Percent Auto 0.4 % (0.2-1.2); Eosinophils Percent Auto 0.3 % (0-4.4); Hematocrit 26.1 % (42.0-52.0); Immature Granulocyte Absolute 0.12 K/mm3 (0.00-0.031); Immature Granulocyte Percent A 1.2 % (0-0.5); Lymphocytes Absolute Auto 1.28 K/mm3 (0.9-3.2); Mean Corpuscular HGB Conc 30.7 g/dl (32-36); Mean Corpuscular Hemoglobin 28.8 pg (26-34); Mean Corpuscular Volume 93.9 fl (80-100); Mean Platelet Volume 9.2 fl (7.4-10.4); Monocytes Percent Auto 9.9 % (2.6-8.5); Neutrophils Absolute Auto 7.4 K/mm3 (1.3-6.7); Neutrophils Percent Auto 75.2 % (45.5-73.1); Platelet Count Result 302 k/mm3 (150-375); Red Blood Count 2.78 M/mm3 (4.6-6.20); Red Cell Distribution Width 18.6 % (11.5-14.5); White Blood Count 9.9 K/mm3 (4.5-10.0)
[2024-02-02 07:17] LABS: Alanine Aminotransferase 9 U/L (6-50); Albumin Level 2.1 g/dL (3.5-5.1); Alkaline Phosphatase 162 U/L (38-126); Anion Gap 4 mmol/L (4-12); Aspartate Amino Transferase 17 U/L (17-59); Bilirubin,Total 0.5 mg/dL (0.2-1.3); Blood Urea Nitrogen 9 mg/dL (9-20); Calcium 7.8 mg/dL (8.4-10.2); Carbon Dioxide 24 mmol/L (22-30); Chloride 105 mmol/L (98-107); Estimated CRCL calculation 79 ml/min; Estimated Glomerular Filt Rate > 60; Glucose 110 mg/dL (65-110); Magnesium 1.9 mg/dL (1.6-2.3); Potassium 3.4 mmol/L (3.4-5.0); Sodium 133 mmol/L (137-145)
[2024-02-02 08:00] VITALS: PULSE 86; RESP 18; O2SAT 96
[2024-02-02] MEDS: DOXAZOSIN MESYLATE 4 MG TABLET PO (09:49)
[2024-02-02] MEDS: CITALOPRAM HYDROBROMIDE 10 MG TABLET PO (09:49)
[2024-02-02] MEDS: PANTOPRAZOLE 40 MG TABLET PO (09:50)
[2024-02-02] MEDS: POTASSIUM CHLORIDE 20 MEQ ER TABLET PO (09:50)
[2024-02-02] MEDS: GABAPENTIN 100 MG CAPSULE PO ×3 (09:50→17:19)
[2024-02-02] MEDS: QUEtiapine FUMARATE 25 MG TABLET PO (09:50)
[2024-02-02] MEDS: ROSUVASTATIN 20 MG TABLET BY MOUTH (09:50)
[2024-02-02 13:23] VITALS: BMI 15.9
--- NOTE | 2024-02-02 13:45 | PM.IMPN ---
Progress Note: A&P Assessment and Plan (1) Altered mental status: Qualifiers: Altered mental status type: stupor Qualified Code(s): R40.1 - Stupor Code(s): R41.82 - Altered mental status, unspecified Status: Acute Assessment and Plan: -diminished level of consciousness on arrival patient is currently awake will answer most questions but does not answer all orientations correctly 01/31: Still confused but improved level of consciousness 02/01: Still confused nursing staff stated worse than yesterday (2) Acute UTI: Code(s): N39.0 - Urinary tract infection, site not specified Status: Acute Assessment and Plan: urinalysis with 4+ urine bacteria positive urine nitrates trace leukocyte esterase. IV antibiotics initiated. 01/31: Reviewed microbiology does not appear that urine culture was ever sent. 02/01: No growth or on culture, will discontinue antibiotics after today (3) Colonic mass: Code(s): K63.89 - Other specified diseases of intestine Status: Chronic Assessment and Plan: - Large left abdominal firm mass palpable externally measuring 19.[address] scan. General surgery consulted. 02/01: Non operative per General surgery (4) Malnutrition related to chronic disease: Code(s): E46 - Unspecified protein-calorie malnutrition Status: Acute Assessment and Plan: Severe protein calorie malnutrition related to chronic disease and colon cancer mass (5) Hyponatremia: Code(s): E87.1 - Hypo-osmolality and hyponatremia Status: Acute Assessment and Plan: Mild hyponatremia with initial sodium 133 which is in range of prior levels in December 202301/31: 132 sodium today, IV fluids discontinued as patient is taking adequate intake 02/01: Stable at 133 (6) Normocytic anemia: Code(s): D64.9 - Anemia, unspecified Status: Acute Assessment and Plan: 01/31: Chronic Anemia with hemoglobin 8.6 on arrival, 7.9 this morning, no signs of blood loss, brown stool. IV fluids discontinued. (7) Hypotension: Code(s): I95.9 - Hypotension, unspecified Status: Acute Assessment and Plan: Patient admitted with low blood pressure maintaining adequate intake orally, however morning blood pressure somewhat. We will give additional L of IV fluids. Plan Likely discharge back to nursing if they will accept him back Time Spent With Patient Time with patient: 25 - 35 minutes Subjective Date/time seen: 02/02/24 13:45 Interval history: Nursing staff states the patient a little more confused today. Urine culture no growth. Blood pressure borderline. Will give additional IV fluids. Unfortunately not able to make any progress with either hospice care for the colon cancer or improvement enough to discharge back to the longterm. Review of Systems Review of Systems: All systems reviewed & are unremarkable except as noted in HPI and below Exam Narrative: GENERAL: Chronically ill-appearing, thin and malnourished in appearance, and in no acute distress. HEAD: Normocephalic, atraumatic. EYES: PERRL and EOMI. ENT: Mucous membranes moist. CHEST: Clear to auscultation. No respiratory distress. HEART: Regular rate and rhythm. Normal peripheral pulses. ABDOMEN: Firm, minimally tender, large palpable mass in left abdomen consistent with patient's known colon mass EXTREMITIES: Normal range of motion. No edema. SKIN: Warm, dry, no rash. NEURO: Awake, alert to self and place but not situation PSYCH: Normal mood and affect. Objective Data Vital Signs Vital Signs: Vital Signs - 24 hr 02/01/24 14:00 02/01/24 20:09 02/01/24 20:00 Temperature 36.7 C 36.5 C Pulse Rate 86 92 Respiratory Rate 17 16 Blood Pressure 120/66 97/67 L Pulse Oximetry 96 97 Oxygen Delivery Room Air 02/02/24 05:27 02/02/24 08:00 Temperature 36.6 C Pulse Rate 86 86 Respiratory Rate 18 18 Blood Pressure 90/50 L
[2024-02-02 14:00] VITALS: BP 85/40; PULSE 98; RESP 22; TEMP 37.4; O2SAT 98
[2024-02-02] MEDS: ENOXAPARIN 40 MG/0.4 ML SYRINGE SUB-Q (14:17)
[2024-02-02] MEDS: SODIUM CHLORIDE 0.9% IV 1,000 ML 500 ML IV CONT (17:19)
[2024-02-02 20:11] VITALS: BP 92/53; PULSE 96; RESP 18; TEMP 36.1; O2SAT 96
[2024-02-03 05:24] VITALS: BP 98/62; PULSE 91; RESP 16; TEMP 36.2; O2SAT 97
[2024-02-03 06:45] LABS: Basophils Percent Auto 0.3 % (0.2-1.2); Eosinophils Percent Auto 0.4 % (0-4.4); Hematocrit 26.6 % (42.0-52.0); Hemoglobin 8.1 g/dL (14.0-18.0); Immature Granulocyte Absolute 0.09 K/mm3 (0.00-0.031); Immature Granulocyte Percent A 0.9 % (0-0.5); Lymphocytes Absolute Auto 1.36 K/mm3 (0.9-3.2); Lymphocytes Percent Auto 13.8 % (18.3-44.2); Mean Corpuscular HGB Conc 30.5 g/dl (32-36); Mean Corpuscular Hemoglobin 28.8 pg (26-34); Mean Corpuscular Volume 94.7 fl (80-100); Mean Platelet Volume 9.3 fl (7.4-10.4); Monocytes Absolute Auto 0.9 K/mm3 (0.1-0.6); Monocytes Percent Auto 9.3 % (2.6-8.5); Neutrophils Absolute Auto 7.4 K/mm3 (1.3-6.7); Neutrophils Percent Auto 75.3 % (45.5-73.1); Platelet Count Result 294 k/mm3 (150-375); Red Blood Count 2.81 M/mm3 (4.6-6.20); Red Cell Distribution Width 18.6 % (11.5-14.5); White Blood Count 9.9 K/mm3 (4.5-10.0)
[2024-02-03 06:58] LABS: Alanine Aminotransferase 11 U/L (6-50); Alkaline Phosphatase 183 U/L (38-126); Anion Gap 1 mmol/L (4-12); Aspartate Amino Transferase 22 U/L (17-59); Bilirubin,Total 0.5 mg/dL (0.2-1.3); Blood Urea Nitrogen 8 mg/dL (9-20); Calcium 7.7 mg/dL (8.4-10.2); Carbon Dioxide 27 mmol/L (22-30); Chloride 105 mmol/L (98-107); Estimated CRCL calculation 79 ml/min; Estimated Glomerular Filt Rate > 60; Glucose 117 mg/dL (65-110); Magnesium 1.9 mg/dL (1.6-2.3); Potassium 3.7 mmol/L (3.4-5.0); Sodium 133 mmol/L (137-145)
--- NOTE | 2024-02-03 07:50 | PM.DS ---
DS: Admitting Diagnosis Discharge Date 02/03/2024 Admitting Diagnosis altered mental status, UTI, colonic mass, severe protein calorie malnutrition, hyponatremia DS: Discharge Diagnosis Discharge Diagnosis (1) Altered mental status: Qualifiers: Altered mental status type: stupor Qualified Code(s): R40.1 - Stupor Code(s): R41.82 - Altered mental status, unspecified Status: Acute (2) Acute UTI: Code(s): N39.0 - Urinary tract infection, site not specified Status: Acute (3) Colonic mass: Code(s): K63.89 - Other specified diseases of intestine Status: Chronic (4) Malnutrition related to chronic disease: Code(s): E46 - Unspecified protein-calorie malnutrition Status: Acute (5) Hyponatremia: Code(s): E87.1 - Hypo-osmolality and hyponatremia Status: Acute (6) Normocytic anemia: Code(s): D64.9 - Anemia, unspecified Status: Acute (7) Hypotension: Code(s): I95.9 - Hypotension, unspecified Status: Acute DS: Summary Hospital Course Hospital Course: This is a 78 year old male patient resident of local nursing [facility] since he can no longer care for himself. Patient was sent to ER with low blood pressure and altered LOC, found to have urinary tract infection. Patient also has a very large colon mass that is non-operative. Patient has no known family members and has not appointed a POA. Given his non-operative status with known colon mass, attempts were made to discuss hospice care with patient but when hospice came to see him they deemed him incapable of understanding and consenting to hospice care. We continued antibiotics until after negative urine culture results. We initiated midodrine for hypotension despite fluid replacement. Patient accepted back to nursing facility as DNR but not on hospice care. Status at Discharge Cognitive/behavioral status at discharge: awake, confused Functional status at discharge: wheelchair bound Overall status at discharge: patient is not back to baseline Time Spent with Patient Time attestation: Total time spent providing and/or coordinating discharge services: 45 minutes Time spent: Greater than 30 minutes Exam Narrative: GENERAL: Chronically ill-appearing, thin and malnourished in appearance, and in no acute distress. HEAD: Normocephalic, atraumatic. EYES: PERRL and EOMI. ENT: Mucous membranes moist. CHEST: Clear to auscultation. No respiratory distress. HEART: Regular rate and rhythm. Normal peripheral pulses. ABDOMEN: Firm, minimally tender, large palpable mass in left abdomen consistent with patient's known colon mass EXTREMITIES: Normal range of motion. No edema. SKIN: Warm, dry, no rash. NEURO: Awake, alert to self and place but not situation PSYCH: Normal mood and affect. DS: Data Data Completed and Pending Completed studies during hospitalization: abdomen pelvis CT, CXR Labs on day of discharge: Labs from last 24 hours 02/03/24 05:51 WBC 9.9 RBC 2.81 L Hgb 8.1 L Hct 26.6 L MCV 94.7 MCH 28.8 MCHC 30.5 L RDW 18.6 H Plt Count 294 MPV 9.3 Immature Gran % (Auto) 0.9 H Neut % (Auto) 75.3 H Lymph % (Auto) 13.8 L Spencer % (Auto) 9.3 H Eos % (Auto) 0.4 Baso % (Auto) 0.3 Lymph # (Auto) 1.36 Spencer # (Auto) 0.9 H Eos # (Auto) 0.0 Baso # (Auto) 0.0 Abs Immat Gran (auto) 0.09 H Absolute Neuts (auto) 7.4 H Absolute Nucleated RBC 0.000 Nucleated RBC % 0.0 Sodium 133 L Potassium 3.7 Chloride 105 Carbon Dioxide 27 Anion Gap 1 L BUN 8 L Creatinine 0.50 L Estim Creat Clear Calc 79 Estimated GFR > 60 Glucose 117 H Calcium 7.7 L Magnesium 1.9 Total Bilirubin 0.5 AST 22 ALT 11 Alkaline Phosphatase 183 H Total Protein 5.0 L Albumin 2.0 L Preliminary micro results at discharge 01/30/24 21:08 Blood Culture - Preliminary Blood 01/30/24 21:08 Blood Culture - Preliminary Blood Discharge Plan Discha
[2024-02-03 07:56] VITALS: BP 93/55
[2024-02-03 08:00] VITALS: O2SAT 97
[2024-02-03] MEDS: PANTOPRAZOLE 40 MG TABLET PO (08:15)
[2024-02-03] MEDS: GABAPENTIN 100 MG CAPSULE PO ×2 (08:15→13:15)
[2024-02-03] MEDS: QUEtiapine FUMARATE 25 MG TABLET PO (08:15)
[2024-02-03] MEDS: ROSUVASTATIN 20 MG TABLET BY MOUTH (08:15)
[2024-02-03] MEDS: CITALOPRAM HYDROBROMIDE 10 MG TABLET PO (08:15)
[2024-02-03] MEDS: POTASSIUM CHLORIDE 20 MEQ ER TABLET PO (08:16)
[2024-02-03] MEDS: ENOXAPARIN 40 MG/0.4 ML SYRINGE SUB-Q (08:16)
[2024-02-03] MEDS: MIDODRINE HCL 2.5 MG TABLET 5 MG PO ×2 (10:46→13:15)
[2024-02-03 14:00] VITALS: BP 90/54; PULSE 98; RESP 20; TEMP 36.6; O2SAT 95
[2024-02-03 14:11] LABS: SARS-CoV-2 RNA PCR Negative (Negative)
== END 2024-02-03 16:45 | DRG 689 ==
LOC: ANHED 14:17 → ANH3MEDSUR 20:32
PROVIDERS: Admitting Provider Internal Medicine; Emergency Provider Emergency Medicine; PCP Internal Medicine; Visit Provider Nurse Practitioner
DX: N39.0 Urinary tract infection, site not specified (principal); E43 Unspecified severe protein-calorie malnutrition; Z68.1 Body mass index [BMI] 19.9 or less, adult; E87.1 Hypo-osmolality and hyponatremia; C18.9 Malignant neoplasm of colon, unspecified; D50.9 Iron deficiency anemia, unspecified; F10.10 Alcohol abuse, uncomplicated; I95.9 Hypotension, unspecified; J44.9 Chronic obstructive pulmonary disease, unspecified; K63.89 Other specified diseases of intestine; M19.90 Unspecified osteoarthritis, unspecified site; Z66 Do not resuscitate; Z11.52 Encounter for screening for COVID-19; Z99.3 Dependence on wheelchair; Z87.891 Personal history of nicotine dependence
CPT/HCPCS: 36415; 71046; 74177; 80053; 81001; 83735; 85025; 87040; 87635; 93005; 96361; 96365; 99285; A9270; G0378; J0696; J1650; J7030; Q9967

== ENCOUNTER 2024-02-16 14:44 | Inpatient (IN) | payer MEDICARE, MEDICAID, SELFPAY ==
[2024-02-16] VITALS (14 sets, daily range): BP systolic 71–96; BP diastolic 46–62; PULSE 81–100; RESP 14–28; TEMP 36.3–37.2; O2SAT 92–99; BMI 15.5
--- NOTE | ~2024-02-16 | XR_ITS ---
EXAMINATION: XR chest 2V 02/16/2024 15:22 INDICATION: Weakness. Altered level consciousness. PROCEDURE: 2 view chest COMPARISON: Comparison to multiple prior studies sequentially, with oldest reviewed study dated 01/07. FINDINGS: The lungs are clear. The cardiomediastinal silhouette is within normal limits. There are no pleural effusions. There is no pneumothorax suspected. There is moderate osteoarthritis of the s houlders. There is chronic apical pleural thickening/scarring. IMPRESSION: 1: NO ACUTE CARDIOPULMONARY DISEASE. Reviewed, dictated and finalized at location A.
--- NOTE | 2024-02-16 14:50 | ECG_ITS ---
SEE SCANNED COPY FOR CONFIRMED REPORT MTDD
[2024-02-16 15:06] LABS: Hematocrit 28.6 % (42.0-52.0); Hemoglobin 8.7 g/dL (14.0-18.0); Mean Corpuscular HGB Conc 30.4 g/dl (32-36); Mean Corpuscular Hemoglobin 29.1 pg (26-34); Mean Corpuscular Volume 95.7 fl (80-100); Mean Platelet Volume 8.5 fl (7.4-10.4); Platelet Count Result 333 k/mm3 (150-375); Red Blood Count 2.99 M/mm3 (4.6-6.20); Red Cell Distribution Width 17.4 % (11.5-14.5); White Blood Count 12.9 K/mm3 (4.5-10.0)
--- NOTE | 2024-02-16 15:09 | ED.WEAKNESS ---
HPI - Weakness General Chief complaint: Weakness Stated complaint: weakness Time Seen by Provider: 02/16/24 15:05 History of Present Illness HPI Narrative: Patient is a 78-year-old male here from [facility] with altered mental status x 3 days and low blood pressure. Patient provides no history and is unresponsive and unarousable. Per chart review, patient resides at a local [facility], can no longer care for himself, has a known large colonic mass which is non operative. He was recently admitted for UTI, low blood pressures and altered mental status. Multiple attempts to try and get patient to be hospice care however he has no family and is unable to consent to hospice himself. He was discharged back to his facility as a DNR but not on hospice care. Related Data Home Medications Medication Instructions Recorded Confirmed citalopram 10 mg tablet 10 mg PO DAILY 12/22/23 01/30/24 gabapentin 300 mg tablet,extended 300 mg PO QPM 12/22/23 01/30/24 release 24 hr hydroxyzine HCl 50 mg tablet 50 mg PO QID PRN Itching 12/22/23 01/30/24 pantoprazole 40 mg tablet,delayed 40 mg PO QAM 12/22/23 01/30/24 release quetiapine 25 mg tablet 25 mg PO QAM 12/22/23 01/30/24 quetiapine 400 mg tablet,extended 400 mg PO HS 12/22/23 01/30/24 release 24 hr rosuvastatin 20 mg tablet 20 mg PO DAILY 12/22/23 01/30/24 trazodone 100 mg tablet 100 mg PO HS PRN Insomnia 12/22/23 01/30/24 Fleet Enema 1 dose RECTAL DAILY PRN 01/30/24 01/30/24 Constipation bisacodyl 10 mg rectal suppository 10 mg RECTAL DAILY PRN Constipation 01/30/24 01/30/24 magnesium citrate 300 ml PO DAILY PRN Constipation 01/30/24 01/30/24 magnesium hydroxide 400 mg/5 mL 400 mg PO DAILY PRN Constipation 01/30/24 01/30/24 oral suspension (Milk of Magnesia) potassium chloride 20 mEq 20 meq PO DAILY 01/30/24 01/30/24 tablet,extended release Allergies Allergy/AdvReac Type Severity Reaction Status Date / Time Penicillins Allergy Rash Verified 01/12/24 13:35 Review of Systems Review of Systems: ROS unobtainable: Yes unobtainable due to mental status PMFSH Past Medical History Medical History Alcohol abuse Arthritis Colonic mass COPD (chronic obstructive pulmonary disease) Iron deficiency anemia Major depressive disorder Tobacco abuse Weight loss Surgical History Surgical History No history of previous surgery Family History Family History Mother Cancer Social History Social History Social History: Currently: Patient resides in long-term care facility as he has no extended family or assistance to maintain a home and has not been able to do so for himself recently. Previously: Patient lives in his own home and is never been . He does not have any pets. He reports that he has not had any contact with his extended family members. He went drinks to excess but will not give me a specific amount that he drinks. He does new enjoys south flavored vodka. He has smoked a pack of cigarettes per day since he was 30 years old. The patient is evasive when discussing illicit substances but urine drug screen was negative in the ER. Code status: DNR/DNI per patient request He does not have a surrogate decision maker in does not have a family member that he is in contact that he would wish to a point as a decision maker. He states to ask the people at [facility] or the staff at the hospital what they would want done. Smoking packs per day: 1 Smoking cigarettes per day: 20.0 Years smoked: 60 Smoking pack-years: 60.00 Smoking status: Unknown if ever smoked Tobacco type: cigarettes Alcohol intake: former Substance use: unknown Substance use type: does not use Do You Feel Safe in your Home?: Yes Lack of Transportation: No
[2024-02-16 15:19] LABS: Albumin Level 2.2 g/dL (3.5-5.1); Alkaline Phosphatase 212 U/L (38-126); Anion Gap 9 mmol/L (4-12); Aspartate Amino Transferase 18 U/L (17-59); Bilirubin,Total 0.7 mg/dL (0.2-1.3); Blood Urea Nitrogen 15 mg/dL (9-20); Calcium 8.2 mg/dL (8.4-10.2); Carbon Dioxide 20 mmol/L (22-30); Chloride 101 mmol/L (98-107); Estimated CRCL calculation 41 ml/min; Estimated Glomerular Filt Rate > 60; Glucose 176 mg/dL (65-110); Potassium 3.9 mmol/L (3.4-5.0); Sodium 130 mmol/L (137-145)
[2024-02-16 15:26] LABS: Alanine Aminotransferase 19 U/L (6-50)
[2024-02-16 15:51] LABS: Lipase 13 U/L (23-300)
[2024-02-16 16:03] LABS: Troponin I < 0.012 ng/mL (0.000-0.034)
[2024-02-16 16:23] LABS: Neutrophils Percent Manual 80 % (46-73)
[2024-02-16 16:24] LABS: Band Neutrophils Percent 6 % (0-6); INR 1.4; Lymphocytes Absolute Manual 0.77 K/mm3 (1.1-4.5); Lymphocytes Percent Manual 6 % (18-44); Metamyelocytes Percent 3 %; Monocytes Absolute Manual 0.38 K/mm3 (0.1-0.90); Monocytes Percent Manual 3 % (3-9); Neutrophils Absolute Manual 11.09 K/mm3 (1.3-6.7); Prothrombin Time 18.1 Seconds (11.1-14.7)
[2024-02-16 16:25] LABS: Anisocytosis 1+; Myelocytes Percent 2 %; Partial Thromboplastin Time 35.3 Seconds (22.3-36.8); Platelet Estimate Adequate (Adequate); Schistocytes None Seen
[2024-02-16 16:31] LABS: CRP 23.4 mg/dL (<1.0)
[2024-02-16 17:00] LABS: Lactic Acid Reflex 5.4 mmol/L (0.7-2.0)
[2024-02-16 17:05] LABS: Appearance Urine Cloudy (Clear); Bacteria Urine 4+ /hpf; Bilirubin Urine 1+ (Negative); Blood Urine Negative (Negative); Color Urine Dark Yellow (Yellow); Glucose Urine UA Negative (Negative); Ketones Urine Negative (Negative); Leukocyte Esterase Ur 1+ LEU/UL (Negative); Need Manual Microscopic Reviewed; Nitrate Urine Positive (Negative); Non Pathogenic Casts >20; Protein Urine 1+ mg/dL (Negative); RBC Urine 0-2 /hpf (0-2); Specific Grav Ur 1.016 (1.001-1.035); Squamous Epithelial Cell Urine Few /hpf (Few); WBC Urine 0-5 /hpf (0-3)
[2024-02-16 17:07] LABS: Add Urine Microscopic? YES
[2024-02-16 17:08] LABS: Influenza A QL RT-PCR Negative (Negative); Influenza B QL RT-PCR Negative (Negative); RSV RNA, RT-PCR Negative (Negative); SARS-CoV-2 RNA PCR Negative (Negative)
[2024-02-16] MEDS: LACTATED RINGERS 1,000 ML 999 ML IV CONT (18:12)
--- NOTE | 2024-02-16 18:27 | PCCCNOTE ---
CC called to the ED regarding pt needing a court appointed guardian. The pt will be admitted to the hospital, but they would like to get the process started tomorrow 02/17/24.
[2024-02-16 19:42] LABS: Reflex Lactic Acid Yes or No Add Lactic
--- NOTE | 2024-02-16 20:20 | PM.IMHP ---
H&P: HPI History of Present Illness Date/Time: 02/16/24 20:00 <Ana M Sharp PA-C - Last Filed: 02/17/24 00:00> Chief Complaint: More weak and confused. <Ana M Sharp PA-C - Last Filed: 02/17/24 00:00> Narrative: This is an unfortunate 78-year-old male with a recent diagnosis of colonic adenocarcinoma, chronic obstructive pulmonary disease, depression, gastroesophageal reflux disease, benign prostatic hyperplasia, and remote history of alcohol abuse who presented to the emergency department via EMS from [facility] as staff noticed that he was more confused and weak today. He is able to provide some history but the following is supplemented via a review of his EMR. He was 1st known to the hospitalist service from an admission on 12/22/2023 with shock after presenting after a fall. CT scan showed a large colonic mass and flexible sigmoidoscopy demonstrated malignant-appearing masses at the transverse and descending colon. Biopsy was consistent with adenocarcinoma of the colon and surgery was consulted. They felt he was an extremely poor surgical candidate due to his nutrition status with a high likelihood of mortality. During this stay he was able to express to care coordination and other staff members that he would like to be a DNR/DNI and he was interested in hospice. A referral was made however they did felt that he did not have the decisional capacity at the time. Unfortunately the patient has no next-of-kin or friends to help make medical decisions for the patient. There were discussions about trying to obtain a state appointed guardian however that has not yet come to fruition. He was readmitted on 01/30/2024 with a presumed urinary tract infection after presenting with weakness and altered mental status however urine culture showed no growth. He was hydrated but blood pressures remained soft so he was started on midodrine and discharged [facility] to the [facility]. He presents again today with increasing weakness and confusion for 24 hours. He does not have any specific complaints at this time with direct questioning. He does not have significant abdominal discomfort. He is unaware of fever and does not have chills or sweats. His appetite has been poor but he denies nausea and vomiting. He has lost nearly 20 lb since the 21 of December. In the ED: He is afebrile but has been tachycardic and hypotensive since arrival. Labs were significant for WBC count of 12.9, hemoglobin 8.7, creatinine 1.0, lactic acid 5.4. Urine was nitrate positive with 4+ bacteria. He received a 30 milligram/kilogram bolus of IV fluids but despite this his blood pressures have not improved. He also received a 1 g of ceftriaxone for abnormal UA. At the time of my evaluation he is alert and oriented to name and date of . He is aware that he is at the hospital. He is aware of the colon cancer diagnosis, poor prognosis, and that he is nearing the end of his life. He maintains DNR/DNI status. He is able to tell me that he grew up in [place], [place] and that his parents and siblings are . He has no children, friends, or family and he does not designate a surrogate decision maker. He has made no plans for arrangements, burial, cremation, etc. Multiple discussions were had with the attending ED physician Dr. Denis, elderly caregiver, house wrecker, attending hospitalist Dr. Greenberg, and the chief operator lock tender regarding the patient and his unfortunate situation. Chart was reviewed extensively. He has a terminal illness and appears to be nearing the end of his life. This author and the above mentioned individuals conferred for a lengthy period of time today and feel it is appropriate and ethical to honor his wishes. No extraordinary or life-saving measures will be undertaken and he will receive comfort focused treatment and supportive care. He is being admitted in this setting. <Ana M Sharp PA-C - Last Filed: 02/17/24 00:00> Review of Systems Review
--- NOTE | 2024-02-16 20:37 | PC.NURSE ---
multiple attempts by multiple staff members to draw the lactic. unable to obtain. phlebotomy was contacted and stated that they would be down to draw it.
[2024-02-16 21:07] LABS: Lactic Acid 2.2 mmol/L (0.7-2.0)
--- NOTE | 2024-02-17 01:20 | ADMGEN ---
This patient, Mario Gomez Jr., was admitted to [facility] Surg Room 309-01. Patient/family oriented to hospital policies and general routines including ID bracelet, bed and alarms, visiting hours, pain management, procedures, bathroom and other care routines, personal items, smoking policy, room service/diet, and visiting hours. Information on how to activate the Rapid Response Team has been discussed. Patient/Family are encouraged to report perceived risks to care and to ask questions if they do not understand what they are told or what they should do.
[2024-02-17 04:13] VITALS: BP 92/52; PULSE 98; RESP 16; TEMP 36.6; O2SAT 99
[2024-02-17 13:04] VITALS: BMI 15.5
[2024-02-17 13:54] VITALS: O2SAT 95
[2024-02-17 14:00] VITALS: BP 84/50; PULSE 92; RESP 22; TEMP 36.5; O2SAT 96
--- NOTE | 2024-02-17 17:04 | PM.IMPN ---
Progress Note: A&P Assessment and Plan (1) Septic shock: Code(s): A41.9 - Sepsis, unspecified organism; R65.21 - Severe sepsis with septic shock Status: Acute (2) Failure to thrive: Status: Acute (3) End of life care: Code(s): Z51.5 - Encounter for palliative care Status: Acute (4) Adenocarcinoma of colon: Code(s): C18.9 - Malignant neoplasm of colon, unspecified Status: Acute (5) Bacteriuria: Code(s): R82.71 - Bacteriuria Status: Acute (6) Normocytic anemia: Code(s): D64.9 - Anemia, unspecified Status: Acute (7) Chronic obstructive pulmonary disease: Code(s): J44.9 - Chronic obstructive pulmonary disease, unspecified Status: Acute (8) Adult failure to thrive: Code(s): R62.7 - Adult failure to thrive Status: Acute (9) Acute UTI: Code(s): N39.0 - Urinary tract infection, site not specified Status: Acute (10) Colon cancer: Qualifiers: Colon location: descending Qualified Code(s): C18.6 - Malignant neoplasm of descending colon Code(s): C18.9 - Malignant neoplasm of colon, unspecified Status: Chronic (11) Hypokalemia: Code(s): E87.6 - Hypokalemia Status: Acute (12) Protein calorie malnutrition: Qualifiers: Protein-calorie malnutrition severity: severe Qualified Code(s): E43 - Unspecified severe protein-calorie malnutrition Code(s): E46 - Unspecified protein-calorie malnutrition Status: Acute (13) Iron deficiency anemia: Code(s): D50.9 - Iron deficiency anemia, unspecified Status: Acute (14) Malnutrition related to chronic disease: Code(s): E46 - Unspecified protein-calorie malnutrition Status: Acute (15) COPD (chronic obstructive pulmonary disease): Code(s): J44.9 - Chronic obstructive pulmonary disease, unspecified Status: Acute (16) Hypoalbuminemia: Code(s): E88.09 - Other disorders of plasma-protein metabolism, not elsewhere classified Status: Acute (17) Hyponatremia: Code(s): E87.1 - Hypo-osmolality and hyponatremia Status: Acute (18) Osteoarthritis of both hips: Code(s): M16.0 - Bilateral primary osteoarthritis of hip Status: Acute (19) Poor prognosis: Code(s): Z78.9 - Other specified health status Status: Acute Plan The patient presented to the emergency department from his nursing facility with increased weakness and confusion as detailed in HPI. Labs, imaging, EKG, and all reports were personally reviewed. Clinically he has septic shock with tachycardia, tachypnea, leukocytosis, lactic acidosis, and refractory hypotension. Source could be urine (nitrate positive with 4+ bacteria however no WBC), occult bacteremia, or secondary to large malignant tumor in the colon. He was started on antibiotics and IV fluids and the question arose as to whether or not it would be appropriate to place a central line for vasopressor support in this patient with a terminal illness and failure to thrive. The patient stated he does not want aggressive treatment but he is only alert to self and place at this time. Multiple physicians have advocated for hospice for this patient during previous stays and the patient himself had expressed interest in the same however did not have decisional capacity when he met with the hospice group. Unfortunately he has no next of kin or legal guardian and thus these decisions fall to his healthcare providers. After lengthy discussions and an extensive review of his chart, it is felt that comfort focused treatment would be most appropriate and ethical given Mr. Gomez's previously voiced wishes as above. No further treatment or aggressive measures will be pursued. Analgesics and antiemetics are available as needed for comfort. Patient admitted to medical unit under full inpatient status Spoke with patient in detail and he expresses his desire for comf
[2024-02-17] MEDS: MORPHINE SULFATE (*CRX) 2 MG/ML INJ IV PUSH (17:22)
[2024-02-17] MEDS: SODIUM CHLORIDE 0.9% IV 1,000 ML 100 ML IV CONT (17:23)
[2024-02-17 20:00] VITALS: O2SAT 96
[2024-02-17 20:50] VITALS: BP 101/49; PULSE 64; RESP 18; TEMP 36.2; O2SAT 96
[2024-02-18] MEDS: SODIUM CHLORIDE 0.9% IV 1,000 ML 100 ML IV CONT (05:39)
[2024-02-18 06:00] VITALS: BP 104/55; PULSE 89; RESP 20; TEMP 36.6; O2SAT 96
[2024-02-18 12:55] LABS: SARS-CoV-2 RNA PCR Negative (Negative)
--- NOTE | 2024-02-18 15:00 | PM.DS ---
DS: Admitting Diagnosis Discharge Date 02/18/2024: Admitting Diagnosis (1) Septic shock: Code(s): ? A41.9 - Sepsis, unspecified organism; R65.21 - Severe sepsis with septic shock?<Ana M Sharp PA-C - Last Filed: 02/17/24 00:00> Status: ? Acute?<Ana M Sharp PA-C - Last Filed: 02/17/24 00:00> (2) Failure to thrive: Status: ? Acute?<Ana M Sharp PA-C - Last Filed: 02/17/24 00:00> (3) End of life care: Code(s): ? Z51.5 - Encounter for palliative care?<Ana M Sharp PA-C - Last Filed: 02/17/24 00:00> Status: ? Acute?<Ana M Sharp PA-C - Last Filed: 02/17/24 00:00> (4) Adenocarcinoma of colon: Code(s): ? C18.9 - Malignant neoplasm of colon, unspecified?<Ana M Sharp PA-C - Last Filed: 02/17/24 00:00> Status: ? Acute?<Ana M Sharp GORDY - Last Filed: 02/17/24 00:00> (5) Bacteriuria: Code(s): ? R82.71 - Bacteriuria?<Ana M Sharp GORDY - Last Filed: 02/17/24 00:00> Status: ? Acute?<Ana M Sharp GORDY - Last Filed: 02/17/24 00:00> (6) Normocytic anemia: Code(s): ? D64.9 - Anemia, unspecified?<Ana M Sharp GORDY - Last Filed: 02/17/24 00:00> Status: ? Acute?<Ana M Sharp GORDY - Last Filed: 02/17/24 00:00> (7) Chronic obstructive pulmonary disease: Code(s): ? J44.9 - Chronic obstructive pulmonary disease, unspecified?<Ana M Sharp PA-C - Last Filed: 02/17/24 00:00> Status: ? Acute?<Ana M Sharp PA-C - Last Filed: 02/17/24 00:00> DS: Discharge Diagnosis Discharge Diagnosis (1) Sepsis secondary to UTI: Code(s): A41.9 - Sepsis, unspecified organism; N39.0 - Urinary tract infection, site not specified Status: Acute (2) Poor prognosis: Code(s): Z78.9 - Other specified health status Status: Acute (3) Failure to thrive: Status: Acute (4) Chronic obstructive pulmonary disease: Code(s): J44.9 - Chronic obstructive pulmonary disease, unspecified Status: Acute (5) End of life care: Code(s): Z51.5 - Encounter for palliative care Status: Acute (6) Adenocarcinoma of colon: Code(s): C18.9 - Malignant neoplasm of colon, unspecified Status: Acute (7) Septic shock: Code(s): A41.9 - Sepsis, unspecified organism; R65.21 - Severe sepsis with septic shock Status: Acute (8) Adult failure to thrive: Code(s): R62.7 - Adult failure to thrive Status: Acute (9) Altered mental status: Qualifiers: Altered mental status type: stupor Qualified Code(s): R40.1 - Stupor Code(s): R41.82 - Altered mental status, unspecified Status: Acute (10) Acute UTI: Code(s): N39.0 - Urinary tract infection, site not specified Status: Acute (11) Colon cancer: Qualifiers: Colon location: descending Qualified Code(s): C18.6 - Malignant neoplasm of descending colon Code(s): C18.9 - Malignant neoplasm of colon, unspecified Status: Chronic (12) Protein calorie malnutrition: Qualifiers: Protein-calorie malnutrition severity: severe Qualified Code(s): E43 - Unspecified severe protein-calorie malnutrition Code(s): E46 - Unspecified protein-calorie malnutrition Status: Acute (13) Weight loss: Code(s): R63.4 - Abnormal weight loss Status: Acute (14) Iron deficiency anemia: Code(s): D50.9 - Iron deficiency anemia, unspecified Status: Acute (15) Electrolyte abnormality: Code(s): E87.8 - Other disorders of electrolyte and fluid balance, not elsewhere classified Status: Acute (16) Malnutrition related to chronic disease: Code(s): E46 - Unspecified protein-calorie malnutrition Status: Acute (17) COPD (chronic obstructive pulmonary disease): Code(s): J44.9 - Chronic obstructive pulmonary disease, unspecified Status: Acute (18) Hypotensio
--- NOTE | 2024-02-18 19:40 | PC.NURSE ---
EMS here at this time to transport to [facility]. Day shift nurse reports that she called report to Tommy at [facility]. Patient to be going to [facility].
== END 2024-02-18 20:06 | disposition hospice, home (50) | DRG 871 ==
LOC: ANHED 15:12 → ANH3MEDSUR 21:22
PROVIDERS: Admitting Provider Internal Medicine; Emergency Provider Student in an Organized Health Care Education/Training Program; PCP Internal Medicine; Visit Provider Family Medicine
DX: A41.9 Sepsis, unspecified organism (principal); E43 Unspecified severe protein-calorie malnutrition; R65.21 Severe sepsis with septic shock; Z68.1 Body mass index [BMI] 19.9 or less, adult; C18.9 Malignant neoplasm of colon, unspecified; N39.0 Urinary tract infection, site not specified; D50.9 Iron deficiency anemia, unspecified; F32.A Depression, unspecified; F17.210 Nicotine dependence, cigarettes, uncomplicated; F10.10 Alcohol abuse, uncomplicated; J44.9 Chronic obstructive pulmonary disease, unspecified; K21.9 Gastro-esophageal reflux disease without esophagitis; N40.0 Benign prostatic hyperplasia without lower urinary tract symptoms; Z66 Do not resuscitate; Z20.822 Contact with and (suspected) exposure to COVID-19; Z11.52 Encounter for screening for COVID-19
CPT/HCPCS: 36415; 71046; 80053; 81001; 83605; 83690; 84484; 85025; 85610; 85730; 86140; 87040; 87635; 87637; 93005; 96361; 96365; 99285; J0696; J2270; J7030; J7120